=== PATIENT | female | born 1950 | race American Indian/Alaskan Native ===

== ENCOUNTER 2017-01-07 14:07 | Inpatient (IN) | payer MEDICARE, BC, OTHER ==
[2017-01-07] MEDS ORDERED: Sodium Chloride 0.9% 1,000 ML IV ONE (14:39)
[2017-01-07] MEDS ORDERED: Insulin Regular, Human 100 Units/ML 10 ML Vial SUBCUT ONE ×2 (14:39→16:10)
[2017-01-07] MEDS ORDERED: Ondansetron 4 MG/2 ML SDV IVPUSH ONE (14:39)
[2017-01-07] MEDS ORDERED: Sodium Chloride 0.9% 10 ML Syringe FLUSH PRN (14:39)
[2017-01-07] MEDS ORDERED: Sodium Chloride 0.9% 2.5 ML Syringe FLUSH PRN (14:39)
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
[2017-01-07] MEDS ORDERED: Sodium Chloride 0.9% 1,000 ML IV SCH (16:15)
[2017-01-07] MEDS ORDERED: Insulin Glargine,Human Rec. Analog 100 Units/ML 3 ML Pen SUBCUT ONE (17:30)
[2017-01-07] MEDS: Insulin Aspart 100 Units/ML 3 ML Pen SUBCUT SCH ×2 (17:40→21:00)
--- NOTE | 2017-01-07 18:43 | PCM.HP ---
H&P History of Present Illness - General Date of Service: 01/07/17 Admit Problem/Dx: Admission Diagnosis/Problem Admission Diagnosis/Problem Hyperglycemia Source of Information: Patient, Family, Provider - History of Present Illness Initial Comments - Free Text/Narative: She presented to the ER feeling fatigued. She was noted by Dr Proctor to have blood sugar over 500 . She reports that she does not currently have blood sugar monitoring strips. Dr Proctor recommended hospital observation for blood sugar management as she has failed recent outpatient attempts to control her severe hyperglycemia. abdominal Pain Score (Numeric/FACES): 4 - Related Data Allergies/Adverse Reactions: Allergies Allergy/AdvReac Type Severity Reaction Status Date / Time No Known Allergies Allergy Verified 07/25/13 09:48 Home Medications: Home Meds Aspirin 81 mg PO DAILY 01/07/17 [History] Lisinopril [Lisinopril] 5 mg PO DAILY 01/07/17 [History] glipiZIDE [Glipizide ER] 5 mg PO DAILY 01/07/17 [History] Past Medical History Cardiovascular History: Reports: Hypertension. 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: Musculoskeletal History: Reports: Arthritis Neurological History: Denies: CVA Endocrine/Metabolic History: Reports: Diabetes, Type II Hematologic History: Denies: Anticoagulation Therapy Immunologic History: Denies: Immunosuppression - Infectious Disease History Infectious Disease History: Reports: Chicken Pox, Measles - Past Surgical History Other Musculoskeletal Surgeries/Procedures:: weak right knee Social & Family History - Family History Family Medical History: Noncontributory - Tobacco Use Smoking Status *Q: Never Smoker Second Hand Smoke Exposure: Yes - Caffeine Use Caffeine Use: Reports: Coffee - Alcohol Use Alcohol Use Comment: she denies any alcohol use - Recreational Drug Use Recreational Drug Use: No H&P Review of Systems - Review of Systems: Review Of Systems: See Below General: Denies: Fever, Chills HEENT: Denies: Ear Pain, Sore Throat Pulmonary: Denies: Shortness of Breath, Cough, Sputum Cardiovascular: Denies: Chest Pain Gastrointestinal: Reports: Abdominal Pain (this has since resolved and seemed to be present when her blood sugar was elevated.) Genitourinary: Denies: Dysuria, Frequency Skin: Denies: Cyanosis Psychiatric: Denies: Confusion Exam - Exam Exam: See Below - Vital Signs Vital Signs: Last Vital Signs Temp 96.9 F 01/07/17 16:55 Pulse 70 01/07/17 16:55 Resp 18 01/07/17 16:55 BP 140/78 01/07/17 16:55 Pulse Ox 98 01/07/17 16:55 Weight: 67.358 kg - Exam General: Alert, Oriented, Cooperative HEENT: EOMI, Mucosa Moist & [place] Neck: Supple, Trachea Midline Lungs: Clear to Auscultation, Normal Respiratory Effort Cardiovascular: Regular Rate, Regular Rhythm GI/Abdominal Exam: Soft, Non-Tender (Female) Exam: Deferred Rectal (Female) Exam: Deferred Back Exam: No: CVA Tenderness (L), CVA Tenderness (R) Extremities: No Pedal Edema Neurological: Cranial Nerves Intact, Normal Speech Neuro Extensive - Motor, Sensory, Reflexes: CN II-XII Intact Psychiatric: Alert, Normal Affect. No: Agitated - Patient Data Lab Results Last 24 hrs: Laboratory Results - last 24 hr 01/07/17 Range/Units 17:36 POC Glucose 238 H (60-110) mg/dL Result Diagrams: 01/07/17 14:46 01/07/17 14:46 *Q Meaningful Use (ADM) - VTE *Q VTE Criteria *Q: - Stroke *Q Stroke Criteria *Q: - AMI *Q AMI Criteria *Q: - Problem List (1) Chronic renal insufficiency SNOMED Code(s): 630855683 ICD Code: N18.9 - CHRONIC KIDNEY DISEASE, UNSPECIFIED Status: Acute Current Visit: Yes (2) Hyperglycemia without ketosis SNOMED Code(s): 86224292 ICD Code: R73.9 - HYPERGLYCEMIA, UNSPECIFIED Status: Acute Current Visit : Yes (3) Type 2 diabetes mellitus SNOMED Code(s): 00272054 ICD Code: E11.9 - TYPE 2 DIABETES MELLITUS WITHOUT COMPLICATIONS Status: Acute Current Visit: Yes Qualifiers: Diabetes mellitus complication status: with unspecified complications Diabetes mellitus shelter insulin use: without terminal carman use Qualified Code( s): E11.8 - Type 2 diabetes mellitus with unspecified complications (4) Hypertension SNOMED Code(s): 48462850 ICD Code: I10 - ESSENTIAL (PRIMARY) HYPERTENSION Status: Acute Current Visit: Yes Problem List Initiated/Reviewed/Updated: Yes Orders Last 24hrs: Active Orders 24 hr Category Date Time Status Accu Check [Blood Glucose Check, Bedside] [] Care 01/07/17 17:14 Active QIDACANDBED ADA Diabetic [[place] [employer] Diet] [DIET Diet 01/07/17 Dinner Active ] Aspirin Med 01/08/17 09:00 Active 81 mg PO DAILY Insulin Aspart [NovoLOG] Med 01/07/17 17:17 Active See Protocol SUBCUT ACBED Insulin Glarg,Human.Rec.Analog [LantUS Solostar] Med 01/08/17 09:00 Active 10 units SUBCUT BID Lisinopril [Prinivil] Med 01/08/17 09:00 Active 5 mg PO DAILY glipiZIDE [Glucotrol XL] Med 01/08/17 09:00 Active 5 mg PO DAILY Medication Orders Aspirin (Aspirin) 81 mg PO DAILY ROBIN Glipizide (Glucotrol Xl) 5 mg PO DAILY ROBIN Insulin Aspart (Novolog) 0 unit SUBCUT ACBED ROBIN PRN Reason: Protocol Last Admin: 01/07/17 17:40 Dose: 2 unit Insulin Glargine (Lantus Solostar) 10 units SUBCUT BID ROBIN Lisinopril (Prinivil) 5 mg PO DAILY ROBIN Sodium Chloride (Saline Flush) 10 ml FLUSH ASDIRECTED PRN PRN Reason: Keep Vein Open Last Admin: 01/07/17 14:58 Dose: 10 ml Sodium Chloride (Saline Flush) 2.5 ml FLUSH ASDIRECTED PRN PRN Reason: Keep Vein Open Last Admin: 01/07/17 14:58 Dose: 2.5 ml Assessment/Plan Comment:: 01/07/2017 admit to observation check lipids start lantus monitor blood sugars diabetic education when available.
[2017-01-07] MEDS ORDERED: Temazepam 15 MG Cap PO PRN (18:47)
[2017-01-07] MEDS: Heparin Sodium 5,000 Units/ML Vial SUBCUT SCH (19:22)
[2017-01-08] MEDS: Heparin Sodium 5,000 Units/ML Vial SUBCUT SCH ×3 (04:08→18:23)
[2017-01-08] MEDS: Lisinopril 5 MG Tab PO SCH (08:26)
[2017-01-08] MEDS: Aspirin 81 MG Tab.Chew PO SCH (08:29)
[2017-01-08] MEDS: glipiZIDE 5 MG Tab.ER PO SCH (08:30)
[2017-01-08] MEDS: Insulin Glargine,Human Rec. Analog 100 Units/ML 3 ML Pen SUBCUT SCH ×2 (08:31→21:17)
[2017-01-08] MEDS: Insulin Aspart 100 Units/ML 3 ML Pen SUBCUT SCH ×4 (08:32→21:16)
[2017-01-08] MEDS: Acetaminophen 325 MG Tab PO PRN ×2 (08:49→16:15)
--- NOTE | 2017-01-08 12:06 | PCM.PN ---
- General Info Date of Service: 01/08/17 Subjective Update: Patient states her lightheadedness has improved. She however does tell me that she had a headache that responded well to tylenol. She denies any nausea, vomiting, abdominal pain. She has no current complaints. - Review of Systems General: Reports: Other (see HPI) - Patient Data Vitals - Most Recent: Last Vital Signs Temp 36.8 C 01/08/17 08:00 Pulse 69 01/08/17 08:00 Resp 14 01/08/17 08:00 BP 134/76 01/08/17 08:26 Pulse Ox 96 01/08/17 08:00 Weight - Most Recent: 67.358 kg I&O - Last 24 Hours: Intake & Output 01/07/17 01/08/17 01/08/17 22:59 06:59 14:59 Intake Total 1340 Output Total 1350 Balance -10 Lab Results Last 24 Hours: Laboratory Results - last 24 hr 01/07/17 01/07/17 01/07/17 Range/Units 17:36 21:25 22:12 WBC (4.0-11.0) K/uL RBC (4.30-5.90) M/uL Hgb (12.0-16.0) g/dL Hct (36.0-46.0) % MCV (80.0-98.0) fL MCH (27.0-32.0) pg MCHC (31.0-37.0) g/dL RDW Std Deviation (28.0-62.0) fl RDW Coeff of Patrice (11.0-15.0) % Plt Count (150-400) K/uL MPV (7.40-12.00) fL Neut % (Auto) (48.0-80.0) % Lymph % (Auto) (16.0-40.0) % Borden % (Auto) (0.0-15.0) % Eos % (Auto) (0.0-7.0) % Baso % (Auto) (0.0-1.5) % Neut # (Auto) (1.4-5.7) K/uL Lymph # (Auto) (0.6-2.4) K/uL Borden # (Auto) (0.0-0.8) K/uL Eos # (Auto) (0.0-0.7) K/uL Baso # (Auto) (0.0-0.1) K/uL Nucleated RBC % /100WBC Nucleated RBCs # K/uL Sodium (136-146) mmol/L Potassium (3.5-5.1) mmol/L Chloride (98-110) mmol/L Carbon Dioxide (21-31) mmol/L BUN (6.0-23.0) mg/dL Creatinine (0.6-1.5) mg/dL Est Cr Clr Drug Dosing mL/min Estimated GFR (MDRD) ml/min Glucose (60-110) mg/dL POC Glucose 238 H 96 93 (60-110) mg/dL Calcium (8.8-10.8) mg/dL Phosphorus (2.4-4.7) mg/dL Magnesium (1.5-2.3) mEq/L Triglycerides (10-190) mg/dL Cholesterol (131-240) mg/dL LDL Cholesterol, Calc (60-180) mg/dL VLDL Cholesterol (5-55) mg/dL HDL Cholesterol (40-80) mg/dL Cholesterol/HDL Ratio (3.3-6.0) 01/08/17 01/08/17 01/08/17 Range/Units 05:43 05:43 05:43 WBC 8.50 (4.0-11.0) K/uL RBC 4.56 (4.30-5.90) M/uL Hgb 13.1 (12.0-16.0) g/dL Hct 39.0 (36.0-46.0) % MCV 85.5 (80.0-98.0) fL MCH 28.7 (27.0-32.0) pg MCHC 33.6 (31.0-37.0) g/dL RDW Std Deviation 40.7 (28.0-62.0) fl RDW Coeff of Patrice 13 (11.0-15.0) % Plt Count 155 (150-400) K/uL MPV 11.60 (7.40-12.00) fL Neut % (Auto) 66.4 (48.0-80.0) % Lymph % (Auto) 24.5 (16.0-40.0) % Borden % (Auto) 5.5 (0.0-15.0) % Eos % (Auto) 3.1 (0.0-7.0) % Baso % (Auto) 0.5 (0.0-1.5) % Neut # (Auto) 5.7 (1.4-5.7) K/uL Lymph # (Auto) 2.1 (0.6-2.4) K/uL Borden # (Auto) 0.5 (0.0-0.8) K/uL Eos # (Auto) 0.3 (0.0-0.7) K/uL Baso # (Auto) 0.0 (0.0-0.1) K/uL Nucleated RBC % 0.0 /100WBC Nucleated RBCs # 0 K/uL Sodium 141 (136-146) mmol/L Potassium 4.0 (3.5-5.1) mmol/L Chloride 112 H (98-110) mmol/L Carbon Dioxide 21 (21-31) mmol/L BUN 47 H (6.0-23.0) mg/dL Creatinine 2.0 H (0.6-1.5) mg/dL Est Cr Clr Drug Dosing 24.23 mL/min Estimated GFR (MDRD) 24.8 ml/min Glucose 234 H (60-110) mg/dL POC Glucose (60-110) mg/dL Calcium 9.0 (8.8-10.8) mg/dL Phosphorus 2.9 (2.4-4.7) mg/dL Magnesium 1.8 (1.5-2.3) mEq/L Triglycerides 278 H (10-190) mg/dL Cholesterol 152 (131-240) mg/dL LDL Cholesterol, Calc 67 (60-180) mg/dL VLDL Cholesterol 56 H (5-55) mg/dL HDL Cholesterol 29 L (40-80) mg/dL Cholesterol/HDL Ratio 5.2 (3.3-6.0) 01/08/17 01/08/17 Range/Units 06:41 11:29 WBC (4.0-11.0) K/uL RBC (4.30-5.90) M/uL Hgb (12.0-16.0) g/dL Hct (36.0-46.0) % MCV (80.0-98.0) fL MCH (27.0-32.0) pg MCHC (31.0-37.0) g/dL RDW Std Deviation (28.0-62.0) fl RDW Coeff of Patrice (11.0-15.0) % Plt Count (150-400) K/uL MPV (7.40-12.00) fL Neut % (Auto) (48.0-80.0) % Lymph % (Auto) (16.0-40.0) % Borden % (Auto) (0.0-15.0) % Eos % (Auto) (0.0-7.0) % Baso % (Auto) (0.0-1.5) % Neut # (Auto) (1.4-5.7) K/uL Lymph # (Auto) (0.6-2.4) K/uL Borden # (Auto) (0.0-0.8) K/uL Eos # (Auto) (0.0-0.7) K/uL Baso # (Auto) (0.0-0.1) K/uL Nucleated RBC % /100WBC Nucleated RBCs # K/uL Sodium (136-146) mmol/L Potassium (3.5-5.1) mmol/L Chloride (98-110) mmol/L Carbon Dioxide (21-31) mmol/L BUN (6.0-23.0) mg/dL Creatinine (0.6-1.5) mg/dL Est Cr Clr Drug Dosing mL/min Estimated GFR (MDRD) ml/min Glucose (60-110) mg/dL POC Glucose 182 H 200 H (60-110) mg/dL Calcium (8.8-10.8) mg/dL Phosphorus (2.4-4.7) mg/dL Magnesium (1.5-2.3) mEq/L Triglycerides (10-190) mg/dL Cholesterol (131-240) mg/dL LDL Cholesterol, Calc (60-180) mg/dL VLDL Cholesterol (5-55) mg/dL HDL Cholesterol (40-80) mg/dL Cholesterol/HDL Ratio (3.3-6.0) Med Orders - Current: Current Medications Acetaminophen (Tylenol) 650 mg PO Q4H PRN PRN Reason: Pain (Mild 1-3)/fever Last Admin: 01/08/17 08:49 Dose: 325 mg Aspirin (Aspirin) 81 mg PO DAILY [facility] Last Admin: 01/08/17 08:29 Dose: 81 mg Glipizide (Glucotrol Xl) 5 mg PO DAILY [facility] Last Admin: 01/08/17 08:30 Dose: 5 mg Heparin Sodium (Porcine) (Heparin Sodium) 5,000 units SUBCUT Q8H [facility] Last Admin: 01/08/17 10:52 Dose: 5,000 units Insulin Aspart (Novolog) 0 unit SUBCUT ACBED [facility] PRN Reason: Protocol Last Admin: 01/08/17 08:32 Dose: 1 unit Insulin Glargine (Lantus Solostar) 10 units SUBCUT BID [facility] Last Admin: 01/08/17 08:31 Dose: 10 unit Lisinopril (Prinivil) 5 mg PO DAILY [facility] Last Admin: 01/08/17 08:26 Dose: 5 mg Sodium Chloride (Saline Flush) 10 ml FLUSH ASDIRECTED PRN PRN Reason: Keep Vein Open Last Admin: 01/07/17 14:58 Dose: 10 ml Sodium Chloride (Saline Flush) 2.5 ml FLUSH ASDIRECTED PRN PRN Reason: Keep Vein Open Last Admin: 01/07/17 14:58 Dose: 2.5 ml Temazepam (Restoril) 15 mg PO BEDTIME PRN PRN Reason: Insomnia Discontinued Medications Sodium Chloride (Normal Saline) 1,000 mls @ 999 mls/hr IV STAT ONE Stop: 01/07/17 15:39 Last Admin: 01/07/17 14:58 Dose: 999 mls/hr Sodium Chloride (Normal Saline) 1,000 mls @ 125 mls/hr IV ASDIRECTED [facility] Last Admin: 01/07/17 16:19 Dose: 125 mls/hr Insulin Glargine (Lantus Solostar) 10 units SUBCUT ONETIME ONE Stop: 01/07/17 17:31 Last Admin: 01/07/17 17:45 Dose: 10 unit Insulin Human Regular (Novolin R) 10 unit SUBCUT ONETIME ONE PRN Reason: Protocol Stop: 01/07/17 14:40 Last Admin: 01/07/17 14:51 Dose: 10 units Insulin Human Regular (Novolin R) 10 unit SUBCUT ONETIME ONE PRN Reason: Protocol Stop: 01/07/17 16:11 Last Admin: 01/07/17 16:18 Dose: 10 units Ondansetron HCl (Zofran) 4 mg IVPUSH ONETIME ONE Stop: 01/07/17 14:40 Last Admin: 01/07/17 14:58 Dose: 4 mg - Exam General: Alert, Oriented Neck: Supple Lungs: Clear to Auscultation, Normal Respiratory Effort Cardiovascular: Regular Rate, Regular Rhythm GI/Abdominal Exam: Normal Bowel Sounds, Soft Extremities: Normal Inspection, Normal Range of Motion, No Pedal Edema, Normal Capillary Refill - Problem List Review Problem List Initiated/Reviewed/Updated: Yes - Plan Plan:: A: #1. Poorly controlled type 2 diabetes #2. hyperglycemia thats improving control #3. Chronic kidney disease - improving creatinine #4. History of hypertension #5. hypertriglyceridemia P: #1. Diabetic education to see patient tomorrow and advise on possible D/C on home insulin #2. Lipitor 40mg PO daily #3. Anticipate discharge tomorrow
[2017-01-08] MEDS: atorvaSTATin 40 MG Tab PO SCH (12:42)
[2017-01-09] MEDS: Heparin Sodium 5,000 Units/ML Vial SUBCUT SCH ×2 (03:43→12:00)
[2017-01-09] MEDS: Insulin Aspart 100 Units/ML 3 ML Pen SUBCUT SCH ×2 (07:52→12:01)
[2017-01-09] MEDS: atorvaSTATin 40 MG Tab PO SCH (08:21)
[2017-01-09] MEDS: glipiZIDE 5 MG Tab.ER PO SCH (08:21)
[2017-01-09] MEDS: Aspirin 81 MG Tab.Chew PO SCH (08:21)
[2017-01-09] MEDS: Lisinopril 5 MG Tab PO SCH (08:24)
[2017-01-09] MEDS: Insulin Glargine,Human Rec. Analog 100 Units/ML 3 ML Pen SUBCUT SCH (08:33)
--- NOTE | 2017-01-09 11:24 | PCM.DCSUM1 ---
Discharge Summary - Hospital Course Free Text/Narrative:: Admission Date: 01/07/17 Discharge Date: 01/09/17 Admission Diagnosis: #1. Hyperglycemia without ketosis #2. Chronic renal insufficiency #3. Type 2 DM #4. Hypertension #5. lightheadedness Discharge Diagnosis: #1. Hyperglycemia - improved #2. Chronic renal insufficiency, type 2 diabetes, hypertension Hospital course: 66F with the above past medical history presented to the ER on 01/07 complaining of feeling lightheaded and as if her blood sugars were elevated. She is a known type 2 diabetic. She stated tot he ER physician that she had been out of test strips and had not been checking her sugars for the past few weeks. It was noted in the ER that her glucose was >500. She was admitted for hyperglycemia management. Routine labs indicated improvement and response to sliding scale. Home medications were continued for hypertension. The patient met with diabetic education who recommended the patient be started on levemir 13 units qam. She was taught on how to administer herself insulin. We tried to start her on metformin but she says shes had it before and it causes diarrhea so she refused. She was discharged home on insulin as described and glipizide was discontinued. She is to follow up with her PCP next week who can restart the glipizide if she wishes. Also started on 20mg PO lipitor daily given her T2DM. Patient was advised to check her glucose routinely, and compliance was encouraged. Advised to return if she experiences lightheadness, dizziness, nausea, vomiting, confusion. - Discharge Data Discharge Date: 01/09/17 Discharge Disposition: Home, Self-Care 01 Condition: Fair - Patient Summary/Data Consults: Consultations 01/07/17 18:45 Consult to Foam Dispenser [Consult to Diabetic Nurse Specialist] [CONS] Routine - Patient Instructions Diet: Diabetic Diet Activity: As Tolerated Notify Provider of: Fever, Nausea and/or Vomiting - Discharge Plan Prescriptions/Med Rec: atorvaSTATin [Lipitor] 20 mg PO BEDTIME 30 Days #30 tablet Blood Sugar Diagnostic [Test Strips] 1 each QAM #1 box Blood-Glucose Meter, Drum-Type [Accu-Chek] 1 each QAM #1 kit Insulin Detemir [Levemir] 13 unit SUBCUT QAM 30 Days #1 box Lancets [Accu-Chek] 1 each MC BID 30 Days #1 box Lisinopril [Prinivil] 5 mg PO DAILY 30 Days #30 tablet Home Medications: Home Meds Aspirin 81 mg PO DAILY 01/07/17 [History] Furosemide 40 mg PO DAILY 01/07/17 [History] SitaGLIPtin [Januvia] 50 mg PO DAILY 01/07/17 [History] amLODIPine Besylate [Amlodipine Besylate] 5 mg PO BEDTIME 01/07/17 [History] Blood Sugar Diagnostic [Test Strips] 1 each QAM #1 box 01/09/17 [Rx] Blood-Glucose Meter, Drum-Type [Accu-Chek] 1 each QAM #1 kit 01/09/17 [Rx] Insulin Detemir [Levemir] 13 unit SUBCUT QAM 30 Days #1 box 01/09/17 [Rx] Lancets [Accu-Chek] 1 each MC BID 30 Days #1 box 01/09/17 [Rx] Lisinopril [Prinivil] 5 mg PO DAILY 30 Days #30 tablet 01/09/17 [Rx] atorvaSTATin [Lipitor] 20 mg PO BEDTIME 30 Days #30 tablet 01/09/17 [Rx] Patient Handouts: Type 2 Diabetes Mellitus, Adult, Hyperglycemia, [id number] Referrals: Janine Back MD [Physician] - 01/16/17 10:30 am - Discharge Summary/Plan Comment DC Time >30 min.: No Discharge Summary/Plan Comment: Admission Date: 01/07/17 Discharge Date: 01/09/17 Admission Diagnosis: #1. Hyperglycemia without ketosis #2. Chronic renal insufficiency #3. Type 2 DM #4. Hypertension #5. lightheadedness Discharge Diagnosis: #1. Hyperglycemia - improved #2. Chronic renal insufficiency, type 2 diabetes, hypertension Hospital course: 66F with the above past medical history presented to the ER on 01/07 complaining of feeling lightheaded and as if her blood sugars were elevated. She is a known type 2 diabetic. She stated tot he ER physician that she had been out of test strips and had not been checking her sugars for the past few weeks. It was noted in the ER that her glucose was >500. She was admitted for hyperglycemia management. Routine labs indicated improvement and response to sliding scale. Home medications were continued for hypertension. The patient met with diabetic education who recommended the patient be started on levemir 13 units qam. She was taught on how to administer herself insulin. We tried to start her on metformin but she says shes had it before and it causes diarrhea so she refused. She was discharged home on insulin as described and glipizide was discontinued. She is to follow up with her PCP next week who can restart the glipizide if she wishes. Patient was advised to check her glucose routinely, and compliance was encouraged. Advised to return if she experiences lightheadness, dizziness, nausea, vomiting, confusion. - Patient Data Vitals - Most Recent: Last Vital Signs Temp 36.4 C 01/09/17 08:00 Pulse 60 01/09/17 08:00 Resp 18 01/09/17 08:00 BP 111/64 01/09/17 08:24 Pulse Ox 97 01/09/17 08:00 Weight - Most Recent: 67.358 kg I&O - Last 24 hours: Intake & Output 01/08/17 01/09/17 01/09/17 22:59 06:59 14:59 Intake Total 1000 1070 Output Total 800 1150 Balance 200 -80 Lab Results - Last 24 hrs: Laboratory Results - last 24 hr 01/08/17 01/08/17 01/08/17 Range/Units 06:41 11:29 15:54 WBC (4.0-11.0) K/uL RBC (4.30-5.90) M/uL Hgb (12.0-16.0) g/dL Hct (36.0-46.0) % MCV (80.0-98.0) fL MCH (27.0-32.0) pg MCHC (31.0-37.0) g/dL RDW Std Deviation (28.0-62.0) fl RDW Coeff of Patrice (11.0-15.0) % Plt Count (150-400) K/uL MPV (7.40-12.00) fL Neut % (Auto) (48.0-80.0) % Lymph % (Auto) (16.0-40.0) % Gila % (Auto) (0.0-15.0) % Eos % (Auto) (0.0-7.0) % Baso % (Auto) (0.0-1.5) % Neut # (Auto) (1.4-5.7) K/uL Lymph # (Auto) (0.6-2.4) K/uL Gila # (Auto) (0.0-0.8) K/uL Eos # (Auto) (0.0-0.7) K/uL Baso # (Auto) (0.0-0.1) K/uL Nucleated RBC % /100WBC Nucleated RBCs # K/uL Sodium (136-146) mmol/L Potassium (3.5-5.1) mmol/L Chloride (98-110) mmol/L Carbon Dioxide (21-31) mmol/L BUN (6.0-23.0) mg/dL Creatinine (0.6-1.5) mg/dL Est Cr Clr Drug Dosing mL/min Estimated GFR (MDRD) ml/min Glucose (60-110) mg/dL POC Glucose 182 H 200 H 172 H (60-110) mg/dL Calcium (8.8-10.8) mg/dL Magnesium (1.5-2.3) mEq/L 01/08/17 01/09/17 01/09/17 Range/Units 20:42 05:30 05:30 WBC 7.40 (4.0-11.0) K/uL RBC 4.52 (4.30-5.90) M/uL Hgb 13.3 (12.0-16.0) g/dL Hct 38.9 (36.0-46.0) % MCV 86.1 (80.0-98.0) fL MCH 29.4 (27.0-32.0) pg MCHC 34.2 (31.0-37.0) g/dL RDW Std Deviation 41.1 (28.0-62.0) fl RDW Coeff of Patrice 13 (11.0-15.0) % Plt Count 148 L (150-400) K/uL MPV 11.70 (7.40-12.00) fL Neut % (Auto) 53.0 (48.0-80.0) % Lymph % (Auto) 33.8 (16.0-40.0) % Gila % (Auto) 6.8 (0.0-15.0) % Eos % (Auto) 5.7 (0.0-7.0) % Baso % (Auto) 0.7 (0.0-1.5) % Neut # (Auto) 3.9 (1.4-5.7) K/uL Lymph # (Auto) 2.5 H (0.6-2.4) K/uL Gila # (Auto) 0.5 (0.0-0.8) K/uL Eos # (Auto) 0.4 (0.0-0.7) K/uL Baso # (Auto) 0.1 (0.0-0.1) K/uL Nucleated RBC % 0.0 /100WBC Nucleated RBCs # 0 K/uL Sodium 141 (136-146) mmol/L Potassium 3.9 (3.5-5.1) mmol/L Chloride 114 H (98-110) mmol/L Carbon Dioxide 21 (21-31) mmol/L BUN 41 H (6.0-23.0) mg/dL Creatinine 1.8 H (0.6-1.5) mg/dL Est Cr Clr Drug Dosing 26.92 mL/min Estimated GFR (MDRD) 28.0 ml/min Glucose 86 (60-110) mg/dL POC Glucose 206 H (60-110) mg/dL Calcium 9.1 (8.8-10.8) mg/dL Magnesium 1.7 (1.5-2.3) mEq/L 01/09/17 01/09/17 Range/Units 06:11 08:31 WBC (4.0-11.0) K/uL RBC (4.30-5.90) M/uL Hgb (12.0-16.0) g/dL Hct (36.0-46.0) % MCV (80.0-98.0) fL MCH (27.0-32.0) pg MCHC (31.0-37.0) g/dL RDW Std Deviation (28.0-62.0) fl RDW Coeff of Patrice (11.0-15.0) % Plt Count (150-400) K/uL MPV (7.40-12.00) fL Neut % (Auto) (48.0-80.0) % Lymph % (Auto) (16.0-40.0) % Gila % (Auto) (0.0-15.0) % Eos % (Auto) (0.0-7.0) % Baso % (Auto) (0.0-1.5) % Neut # (Auto) (1.4-5.7) K/uL Lymph # (Auto) (0.6-2.4) K/uL Gila # (Auto) (0.0-0.8) K/uL Eos # (Auto) (0.0-0.7) K/uL Baso # (Auto) (0.0-0.1) K/uL Nucleated RBC % /100WBC Nucleated RBCs # K/uL Sodium (136-146) mmol/L Potassium (3.5-5.1) mmol/L Chloride (98-110) mmol/L Carbon Dioxide (21-31) mmol/L BUN (6.0-23.0) mg/dL Creatinine (0.6-1.5) mg/dL Est Cr Clr Drug Dosing mL/min Estimated GFR (MDRD) ml/min Glucose (60-110) mg/dL POC Glucose 81 120 H (60-110) mg/dL Calcium (8.8-10.8) mg/dL Magnesium (1.5-2.3) mEq/L Med Orders - Current: Current Medications Acetaminophen (Tylenol) 650 mg PO Q4H PRN PRN Reason: Pain (Mild 1-3)/fever Last Admin: 01/08/17 16:15 Dose: 325 mg Aspirin (Aspirin) 81 mg PO DAILY [facility] Last Admin: 01/09/17 08:21 Dose: 81 mg Atorvastatin Calcium (Lipitor) 40 mg PO DAILY [facility] Last Admin: 01/09/17 08:21 Dose: 40 mg Glipizide (Glucotrol Xl) 5 mg PO DAILY [facility] Last Admin: 01/09/17 08:21 Dose: 5 mg Heparin Sodium (Porcine) (Heparin Sodium) 5,000 units SUBCUT Q8H [facility] Last Admin: 01/09/17 03:43 Dose: 5,000 units Insulin Aspart (Novolog) 0 unit SUBCUT ACBED [facility] PRN Reason: Protocol Last Admin: 01/09/17 07:52 Dose: Not Given Insulin Glargine (Lantus Solostar) 10 units SUBCUT BID [facility] Last Admin: 01/09/17 08:33 Dose: 10 unit Lisinopril (Prinivil) 5 mg PO DAILY [facility] Last Admin: 01/09/17 08:24 Dose: 5 mg Sodium Chloride (Saline Flush) 10 ml FLUSH ASDIRECTED PRN PRN Reason: Keep Vein Open Last Admin: 01/07/17 14:58 Dose: 10 ml Sodium Chloride (Saline Flush) 2.5 ml FLUSH ASDIRECTED PRN PRN Reason: Keep Vein Open Last Admin: 01/07/17 14:58 Dose: 2.5 ml Temazepam (Restoril) 15 mg PO BEDTIME PRN PRN Reason: Insomnia Discontinued Medications Sodium Chloride (Normal Saline) 1,000 mls @ 999 mls/hr IV STAT ONE Stop: 01/07/17 15:39 Last Admin: 01/07/17 14:58 Dose: 999 mls/hr Sodium Chloride (Normal Saline) 1,000 mls @ 125 mls/hr IV ASDIRECTED [facility] Last Admin: 01/07/17 16:19 Dose: 125 mls/hr Insulin Glargine (Lantus Solostar) 10 units SUBCUT ONETIME ONE Stop: 01/07/17 17:31 Last Admin: 01/07/17 17:45 Dose: 10 unit Insulin Human Regular (Novolin R) 10 unit SUBCUT ONETIME ONE PRN Reason: Protocol Stop: 01/07/17 14:40 Last Admin: 01/07/17 14:51 Dose: 10 units Insulin Human Regular (Novolin R) 10 unit SUBCUT ONETIME ONE PRN Reason: Protocol Stop: 01/07/17 16:11 Last Admin: 01/07/17 16:18 Dose: 10 units Ondansetron HCl (Zofran) 4 mg IVPUSH ONETIME ONE Stop: 01/07/17 14:40 Last Admin: 01/07/17 14:58 Dose: 4 mg *Q Meaningful Use (DIS) - VTE *Q VTE Criteria *Q: - Stroke *Q Stroke Criteria *Q: - AMI *Q AMI Criteria *Q:
--- NOTE | 2017-01-09 12:20 | CT ---
EXAM DATE: 01/07/17 PATIENT'S AGE: 66 Patient: CORY DE LUNA Facility: [place], [place] Site . Site : [id number] Study: CT Head WO CONT [id number] 3:20:23 PM Ordering Physician: Hitesh Garcia Final Report: Dizzy. Technique noncontrast head CT scan. No comparison studies are available. Findings: Axial noncontrast images through the brain parenchyma demonstrates no acute intracranial hemorrhage or mass. There is generalized mild parenchymal volume loss with periventricular hypolucencies likely reflecting chronic small vessel ischemic change. No abnormal extra-axial air fluid collections. No midline shift. The visualized paranasal sinuses, mastoid air cells skull and scalp appear unremarkable aside from mucosal thickening in the ethmoid air cells. Impression: 1. No acute intracranial hemorrhage or mass. 2. Mild generalized parenchymal volume loss with periventricular hypolucencies likely reflecting chronic small vessel ischemic change. 3. Mild ethmoid sinus disease. Please note that all CT scans at this facility use dose modulation, iterative reconstruction, and/or weight-based dosing when appropriate to reduce radiation dose to as low as reasonably achievable. Dictated by Mona Cruz MD @ Jan 07 2017 3:39PM (Electronic Signature) Report Signed by Proxy. [email or web address]
== END 2017-01-09 13:30 | disposition home or self-care (01) | DRG 683 ==
LOC: MW.ED 14:07 → MW.MS 16:10
PROVIDERS: ADMIT Family Medicine; ATTEND Family Medicine
DX: I12.9 Hypertensive chronic kidney disease with stage 1 through stage 4 chronic kidney disease, or unspecified chronic kidney disease (principal); N18.4 Chronic kidney disease, stage 4 (severe); E11.22 Type 2 diabetes mellitus with diabetic chronic kidney disease; E86.0 Dehydration; Z79.899 Other long term (current) drug therapy; E11.65 Type 2 diabetes mellitus with hyperglycemia; R51 Headache; E78.1 Pure hyperglyceridemia; Z79.84 Long term (current) use of oral hypoglycemic drugs
CPT/HCPCS: 36415; 70450; 80053; 81001; 82009; 82150; 82962; 83036; 83690; 85025; 93005; 96361; 96372; 96374; 99285; J2405; J7040; 80048; 80061; 83735; 84100; 99283; A9270-GY; J1644; J1815-GY ×2

== ENCOUNTER 2018-09-25 13:53 | Emergency (ER) | payer MEDICARE, BC, OTHER ==
--- NOTE | 2018-09-25 14:35 | EDM.PDOC ---
ED HPI GENERAL MEDICAL PROBLEM - General Chief Complaint: Lower Extremity Injury/Pain Stated Complaint: LEFT KNEE INJURY Time Seen by Provider: 09/25/18 14:15 Source of Information: Reports: Patient History Limitations: Reports: No Limitations - History of Present Illness INITIAL COMMENTS - FREE TEXT/NARRATIVE: HISTORY AND PHYSICAL: History of present illness: Presents reporting left posterior thigh pain. The patient states that about a week and half ago she felt a cramp in her left mid posterior thigh. Then pain has now deepened and extended up to her buttock and down to her calf. The pain increases with bending at the knee. She also complains of some swelling about her knee and in her ankle and foot. She denies fever, headache, chest pain, shortness of breath. She has a history of CKD IV and diabetes mellitus. Review of systems: As per history of present illness and below otherwise all systems reviewed and negative. Past medical history: As per history of present illness and as reviewed below otherwise noncontributory. Surgical history: As per history of present illness and as reviewed below otherwise noncontributory. Social history: No reported history of drug or alcohol abuse. Family history: As per history of present illness and as reviewed below otherwise noncontributory. Physical exam: HEENT: Atraumatic, normocephalic, pupils reactive, negative for conjunctival pallor or scleral icterus, mucous membranes moist, throat clear, neck supple, nontender, trachea midline. Lungs: Clear to auscultation, breath sounds equal bilaterally, chest nontender. Heart: S1S2, regular, negative for clicks, rubs, or JVD. Abdomen: Soft, nondistended, nontender. Negative for masses or hepatosplenomegaly. Negative for costovertebral tenderness. Pelvis: Stable nontender. Genitourinary: Deferred. Rectal: Deferred. Extremities: Atraumatic, negative for cords or calf pain. Neurovascular unremarkable. Neuro: Awake, alert, oriented. Cranial nerves II through XII unremarkable. Cerebellum unremarkable. Motor and sensory unremarkable throughout. Exam nonfocal. Diagnostics: [] Therapeutics: [] Impression: [] Plan: [] Definitive disposition and diagnosis as appropriate pending reevaluation and review of above. left leg Pain Score (Numeric/FACES): 10 - Related Data Allergies Allergy/AdvReac Type Severity Reaction Status Date / Time glyburide Allergy Diarrhea Verified 09/25/18 14:19 metformin Allergy Diarrhea Verified 09/25/18 14:19 Home Meds: Home Meds Aspirin [Halfprin] 81 mg PO DAILY 02/25/18 [History] Furosemide [Lasix] 40 mg PO DAILY 02/25/18 [History] Insulin Detemir [Levemir Flextouch] 10 units SUBCUT BEDTIME 02/25/18 [History] Insulin Detemir [Levemir Flextouch] 20 units SUBCUT DAILY 02/25/18 [History] SitaGLIPtin [Januvia] 50 mg PO DAILY 02/25/18 [History] amLODIPine Besylate [Amlodipine Besylate] 5 mg PO BEDTIME 02/25/18 [History] glipiZIDE [Glucotrol XL] 5 mg PO DAILY 02/25/18 [History] atorvaSTATin [Lipitor] 20 mg PO BEDTIME 09/25/18 [History] Past Medical History HEENT History: Reports: None Cardiovascular History: Reports: Hypertension Respiratory History: Reports: None Gastrointestinal History: Reports: None Genitourinary History: Reports: Chronic Renal Insuffiency INFORMATICIST History: Reports: Musculoskeletal History: Reports: Arthritis Neurological History: Reports: None Psychiatric History: Reports: None Endocrine/Metabolic History: Reports: Diabetes, Type II Immunologic History: Reports: None Oncologic (Cancer) History: Reports: None Dermatologic History: Reports: None - Infectious Disease History Infectious Disease History: Reports: Chicken Pox, Measles - Past Surgical History Head Surgeries/Procedures: Reports: None GI Surgical History: Reports: Appendectomy Other Musculoskeletal Surgeries/Procedures:: weak right knee Social & Family History - Family History Family Medical History: Noncontributory - Tobacco Use Smoking Status *Q: Never Smoker - Caffeine Use Caffeine Use: Reports: None - Recreational Drug Use Recreational Drug Use: No Review of Systems - Review of Systems Review Of Systems: ROS reveals no pertinent complaints other than HPI. ED EXAM, GENERAL - Physical Exam Exam: See Below Exam Limited By: No Limitations General Appearance: Alert, No Apparent Distress Ears: Normal External Exam Nose: Normal Inspection Throat/Mouth: Normal Inspection Head: Atraumatic, Normocephalic Neck: Normal Inspection Respiratory/Chest: No Respiratory Distress, Lungs Clear, Normal Breath Sounds Cardiovascular: Normal Peripheral Pulses, Regular Rate, Rhythm, Systolic Murmur (Long-standing history of heart murmur) Back Exam: No: Paraspinal Tenderness, Vertebral Tenderness Extremities: Other (Left posterior thigh mild tenderness mild nonpitting swelling about the ankle and dorsal foot bilateral.) Neurological: Alert, Oriented Psychiatric: Normal Affect, Normal Mood Skin Exam: Warm, Dry, Intact, Normal Color, No Rash Lymphatic: No Adenopathy Course - Vital Signs Last Recorded V/S: Last Vital Signs Temp 36.5 C 09/25/18 14:15 Pulse 91 09/25/18 14:15 Resp 16 09/25/18 14:15 BP 131/80 09/25/18 14:15 Pulse Ox 98 09/25/18 14:15 - Orders/Labs/Meds Orders: Active Orders 24 hr Category Date Time Status D-DIMER QUANTITATIVE [COAG] Stat Lab 09/25/18 14:31 Ordered Labs: Laboratory Tests 09/25/18 09/25/18 09/25/18 Range/Units 15:20 15:20 15:20 WBC 8.35 (4.0-11.0) K/uL RBC 4.69 (4.30-5.90) M/uL Hgb 13.5 (12.0-16.0) g/dL Hct 40.1 (36.0-46.0) % MCV 85.5 (80.0-98.0) fL MCH 28.8 (27.0-32.0) pg MCHC 33.7 (31.0-37.0) g/dL RDW Std Deviation 41.8 (28.0-62.0) fl RDW Coeff of Patrice 14 (11.0-15.0) % Plt Count 186 (150-400) K/uL MPV 10.90 (7.40-12.00) fL Neut % (Auto) 70.3 (48.0-80.0) % Lymph % (Auto) 22.0 (16.0-40.0) % Mclean % (Auto) 4.7 (0.0-15.0) % Eos % (Auto) 2.3 (0.0-7.0) % Baso % (Auto) 0.7 (0.0-1.5) % Neut # (Auto) 5.9 H (1.4-5.7) K/uL Lymph # (Auto) 1.8 (0.6-2.4) K/uL Mclean # (Auto) 0.4 (0.0-0.8) K/uL Eos # (Auto) 0.2 (0.0-0.7) K/uL Baso # (Auto) 0.1 (0.0-0.1) K/uL Nucleated RBC % 0.0 /100WBC Nucleated RBCs # 0 K/uL INR 0.96 Sodium 141 (136-145) mmol/L Potassium 4.9 (3.5-5.1) mmol/L Chloride 107 (98-107) mmol/L Carbon Dioxide 23.1 (21.0-32.0) mmol/L BUN 54 H (7.0-18.0) mg/dL Creatinine 3.0 H (0.6-1.0) mg/dL Est Cr Clr Drug Dosing 15.70 mL/min Estimated GFR (MDRD) 15.4 ml/min Glucose 201 H (74-106) mg/dL Calcium 10.0 (8.5-10.1) mg/dL Total Bilirubin 0.4 (0.2-1.0) mg/dL AST 10 L (15-37) IU/L ALT 18 (14-63) IU/L Alkaline Phosphatase 84 (46-116) U/L Total Protein 7.5 (6.4-8.2) g/dL Albumin 3.7 (3.4-5.0) g/dL Globulin 3.8 (2.6-4.0) g/dL Albumin/Globulin Ratio 1.0 (0.9-1.6) Departure - Departure Time of Disposition: 16:12 Disposition: Home, Self-Care 01 Condition: Good Clinical Impression: Bakers cyst Qualifiers: Laterality: left Qualified Code(s): M71.22 - Synovial cyst of popliteal space [ Greenwood], left knee - Discharge Information *PRESCRIPTION DRUG MONITORING PROGRAM REVIEWED*: Not Applicable *COPY OF PRESCRIPTION DRUG MONITORING REPORT IN PATIENT MANISHA: Not Applicable Referrals: Janine Back MD [Primary Care Provider] - Forms: ED Department Discharge Additional Instructions: The following information is given to patients seen in the emergency department who are being discharged to home. This information is to outline your options for follow-up care. We provide all patients seen in our emergency department with a follow-up referral. The need for follow-up, as well as the timing and circumstances, are variable depending upon the specifics of your emergency department visit. If you don't have a primary care physician on staff, we will provide you with a referral. We always advise you to contact your personal physician following an emergency department visit to inform them of the circumstance of the visit and for follow-up with them and/or the need for any referrals to a consulting specialist. The emergency department will also refer you to a specialist when appropriate. This referral assures that you have the opportunity for follow-up care with a specialist. All of these measure are taken in an effort to provide you with optimal care, which includes your follow-up. Under all circumstances we always encourage you to contact your private physician who remains a resource for coordinating your care. When calling for follow-up care, please make the office aware that this follow-up is from your recent emergency room visit. If for any reason you are refused follow-up, please contact the [facility] Emergency Department at and asked to speak to the emergency department charge nurse. 1. Follow-up with Dr. Back at [facility] for further evaluation and possible injection. 2. Tylenol 1 g every 8 hours as needed for pain - My Orders Last 24 Hours: My Active Orders 09/25/18 14:31 D-DIMER QUANTITATIVE [COAG] Stat - Assessment/Plan Last 24 Hours: My Active Orders 09/25/18 14:31 D-DIMER QUANTITATIVE [COAG] Stat
--- NOTE | 2018-09-25 15:21 | US ---
ULTRASOUND EXAMINATION OF the left lower extremity WITH DOPPLER HISTORY: Pain FINDINGS: Examination of the left leg was performed from the groin to the calf region. All visualized segments including common femoral, proximal greater saphenous, superficial femoral, popliteal and calf veins appear patent with good compressibility and augmentation. There is no evidence of deep vein thrombosis. There is a 6.3 x 8 x 2.5 cm Greenwood's cyst. IMPRESSION: No evidence of a DVT.
[2018-09-25 16:00] LABS: CARBON DIOXIDE,CO2 23.1 mmol/L (21.0-32.0); POTASSIUM,K 4.9 mmol/L (3.5-5.1)
== END 2018-09-25 16:40 | disposition home or self-care (01) ==
LOC: MW.ED 13:53
DX: M71.22 Synovial cyst of popliteal space [Baker], left knee (principal); I12.9 Hypertensive chronic kidney disease with stage 1 through stage 4 chronic kidney disease, or unspecified chronic kidney disease; N18.9 Chronic kidney disease, unspecified; E11.22 Type 2 diabetes mellitus with diabetic chronic kidney disease; M19.90 Unspecified osteoarthritis, unspecified site; Z79.899 Other long term (current) drug therapy; Z90.49 Acquired absence of other specified parts of digestive tract; Z79.82 Long term (current) use of aspirin; Z79.4 Long term (current) use of insulin; Z88.8 Allergy status to other drugs, medicaments and biological substances
CPT/HCPCS: 36415; 80053; 85025; 85379; 85610; 93971-26-LT; 93971-LT; 99283; 99284-25

== ENCOUNTER 2019-11-13 06:33 | Day surgery (SDC) | payer MEDICARE, OTHER ==
[~2019-11-13 06:33] MED LIST: Lactated Ringers 1,000 ML IV SCH
[2019-11-13] MEDS ORDERED: fentaNYL 100 MCG/2 ML SDV ONE (07:17)
[2019-11-13] MEDS ORDERED: Propofol 200 MG/20 ML SDV ONE (07:17)
--- NOTE | 2019-11-13 07:18 | PCM.PREANE ---
Preanesthetic Assessment - Anesthesia/Transfusion/Family Hx Anesthesia History: Prior Anesthesia Without Reaction Family History of Anesthesia Reaction: No Transfusion History: Prior Transfusion Without Reaction Intubation History: Unknown - Review of Systems General: No Symptoms Pulmonary: No Symptoms Cardiovascular: No Symptoms Gastrointestinal: No Symptoms, Other (family h/o colon cancer (mother)) Neurological: No Symptoms Other: Reports: None - Physical Assessment Height: 5 ft 5 in Weight: 69.4 kg ASA Class: 3 Mental Status: Alert & Oriented x3 Airway Class: Mallampati = 2 Dentition: Reports: Partial (upper removable) Thyro-Mental Finger Breadths: 3 Mouth Opening Finger Breadths: 3 ROM/Head Extension: Limited/Partial Lungs: Clear to Auscultation, Normal Respiratory Effort Cardiovascular: Regular Rate, Regular Rhythm - Allergies Allergies/Adverse Reactions: Allergies Allergy/AdvReac Type Severity Reaction Status Date / Time glyburide Allergy Diarrhea Verified 11/07/19 11:41 latex Allergy Rash Verified 11/07/19 11:41 metformin Allergy Diarrhea Verified 11/07/19 11:41 - Blood Blood Available: No - Anesthesia Plan Pre-Op Medication Ordered: None - Acknowledgements Anesthesia Type Planned: MAC Pt an Appropriate Candidate for the Planned Anesthesia: Yes Alternatives and Risks of Anesthesia Discussed w Pt/Guardian: Yes Pt/Guardian Understands and Agrees with Anesthesia Plan: Yes PreAnesthesia Questionnaire HEENT History: Reports: Other (See Below) Other HEENT History: wears glasses, has removable dental bridge in front Cardiovascular History: Reports: Heart Murmur, Hypertension Other Cardiovascular History: has had heart murmur since her late 20's, recently checked before the AV shunt and was told she was "fine" Respiratory History: Reports: Other (See Below) (h/o tuberculosis) Gastrointestinal History: Reports: Other (See Below) Other Gastrointestinal History: occasional heartburn- takes Tums Genitourinary History: Reports: Renal Disease Other Genitourinary History: CKD Stage 5- left wrist AV fistula procedure 1 month ago- has not started dialysis 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: Reports: Musculoskeletal History: Reports: Arthritis, Other (See Below) (Bilat carpal tunnel syndrome) Neurological History: Reports: Concussion Psychiatric History: Reports: None Endocrine/Metabolic History: Reports: Diabetes, Type II, IDDM Hematologic History: Reports: Blood Transfusion(s) Immunologic History: Reports: None Oncologic (Cancer) History: Reports: None Dermatologic History: Reports: None - Infectious Disease History Infectious Disease History: Reports: Chicken Pox, Measles - Past Surgical History Head Surgeries/Procedures: Reports: None HEENT Surgical History: Reports: Tonsillectomy Cardiovascular Surgical History: Reports: Vascular Surgery Other Cardiovascular Surgeries/Procedures: Has AV fistula in left wrist GI Surgical History: Reports: Appendectomy Musculoskeletal Surgical History: Reports: Arthroscopic Knee - SUBSTANCE USE Smoking Status *Q: Never Smoker Recreational Drug Use History: No - HOME MEDS Home Medications: Home Meds Aspirin [Halfprin] 81 mg PO DAILY 02/25/18 [History] Furosemide [Lasix] 40 mg PO DAILY 02/25/18 [History] Insulin Detemir [Levemir Flextouch] 15 units SUBCUT BEDTIME 02/25/18 [History] Insulin Detemir [Levemir Flextouch] 25 units SUBCUT QAM 02/25/18 [History] SitaGLIPtin [Januvia] 50 mg PO DAILY 02/25/18 [History] amLODIPine Besylate [Amlodipine Besylate] 5 mg PO BEDTIME 02/25/18 [History] glipiZIDE [Glucotrol XL] 5 mg PO BID 02/25/18 [History] Diclofenac Sodium [Voltaren] 1 dose TOP ASDIRECTED PRN 09/20/19 [History] Sodium Bicarbonate 650 mg PO TID 09/20/19 [History] - CURRENT (IN HOUSE) MEDS Current Meds: Current Medications Lactated Ringer's (Ringers, Lactated) 1,000 mls @ 125 mls/hr IV ASDIRECTED [facility]
--- NOTE | 2019-11-13 08:26 | PCM.OPNOTE ---
- General Post-Op/Procedure Note Date of Surgery/Procedure: 11/13/19 Operative Procedure(s): colonoscopy w bx Findings: see [id number] Pre Op Diagnosis: mother has colon ca Post-Op Diagnosis: colon polyp Anesthesia Technique: Moderate Sedation Primary Surgeon: Westley Van Pathology: 3mm polyp at 55cm when scope pulling out Complications: None Condition: Good
--- NOTE | 2019-11-13 08:40 | PCM.POSTAN ---
POST ANESTHESIA ASSESSMENT - MENTAL STATUS Mental Status: Alert, Oriented - VITAL SIGNS Vital Signs: Last Vital Signs Temp 36.3 C 11/13/19 07:10 Pulse 69 11/13/19 08:35 Resp 13 11/13/19 08:35 BP 105/53 L 11/13/19 08:35 Pulse Ox 98 11/13/19 08:35 - RESPIRATORY Respiratory Status: Respiratory Rate WNL, Airway Patent, O2 Saturation Stable - CARDIOVASCULAR CV Status: Pulse Rate WNL, Blood Pressure Stable - GASTROINTESTINAL GI Status: No Symptoms - PAIN Pain Score: 0 - POST OP HYDRATION Hydration Status: Adequate & Stable - OBSERVATIONS Free Text/Narrative:: No anesthesia problems
--- NOTE | 2019-11-13 09:21 | PCM48HPAN ---
Post Anesthesia Note - EVALUATION WITHIN 48HRS OF ANESTHETIC Vital Signs in Normal Range: Yes Patient Participated in Evaluation: Yes Respiratory Function Stable: Yes Airway Patent: Yes Cardiovascular Function Stable: Yes Hydration Status Stable: Yes Pain Control Satisfactory: Yes Nausea and Vomiting Control Satisfactory: Yes Mental Status Recovered: Yes Vital Signs: Last Vital Signs Temp 36.3 C 11/13/19 07:10 Pulse 67 11/13/19 08:40 Resp 13 11/13/19 08:40 BP 135/72 11/13/19 08:40 Pulse Ox 95 11/13/19 08:40 - COMMENTS/OBSERVATIONS Free Text/Narrative:: No anesthesia problems
--- NOTE | 2019-11-13 10:14 | OR ---
SURGEON: Westley Van MD DATE OF PROCEDURE: 11/13/2019 PREOPERATIVE DIAGNOSIS: Positive family history for colon cancer. POSTOPERATIVE DIAGNOSIS: Colon polyp. PROCEDURE PERFORMED: Colonoscopy with biopsy. PRIMARY SURGEON: Westley Van MD. COMPLICATIONS: None. DESCRIPTION OF PROCEDURE: The patient was taken to the endoscopy room. A time out was called, patient identified, and procedure identified. Diprivan was then administrated. Patient went from awake to sleep, hearing doctor talking or door closing is normal. Perineum inspection and digital examination were then performed. A well- lubricated colonoscope was gently inserted through the rectum, advanced past the rectosigmoid junction, the descending colon, splenic flexure, transverse colon, hepatic flexure, ascending colon, arrived to the cecum. Cecum was identified as dictated in the finding. Then the scope was carefully withdrawn while attention was paid to the mucosal surface for any abnormality. Air will be sucked out during the scope withdrawal. At the rectum, retroflexed to examine any rectal diseases, fistula or hemorrhoids. During mucosal examination, abnormality or polyp was noted; picture taken and biopsy performed. Patient tolerated procedure well. There were no intraoperative complications, and Dr. Van was present throughout the whole procedure. FINDINGS: 1. The patient is easily sedated with FOOD PORTER and Diprivan, the patient is soundly snoring. 2. Bowel prep is excellent, very little liquid stool. There is no semi-formed stool. 3. Colon is rather straightforward. Cecum indicated by ileocecal fold, one-to- one indentation, appendiceal orifice. Light emittance is not observed and ScopeGuide is pointing south. Mucosa examined upon scope pulling out. The patient does not have diverticulosis. There is a small tiny polyp 3 mm sessile at distance 55 when the scope pulling out, removed with biopsy forceps. There is no other growth, inflammation, stricture, AV malformation, bleeding, ulcer, none of those. The patient has mild internal hemorrhoids. The patient will benefit from repeat colonoscopy on a case by case situation, as she is 69 right now or if the polyp pathology indicated otherwise. As always, thank you for the kind referral. SONAL / CHARLY /[id number]
== END 2019-11-13 09:25 | disposition home or self-care (01) ==
LOC: MW.SDS 06:33
PROVIDERS: ATTEND Surgery
DX: Z12.11 Encounter for screening for malignant neoplasm of colon (principal); K63.5 Polyp of colon; K64.8 Other hemorrhoids; N18.5 Chronic kidney disease, stage 5; I12.0 Hypertensive chronic kidney disease with stage 5 chronic kidney disease or end stage renal disease; E11.22 Type 2 diabetes mellitus with diabetic chronic kidney disease; Z88.8 Allergy status to other drugs, medicaments and biological substances; Z79.899 Other long term (current) drug therapy; Z90.49 Acquired absence of other specified parts of digestive tract; Z77.22 Contact with and (suspected) exposure to environmental tobacco smoke (acute) (chronic); Z80.0 Family history of malignant neoplasm of digestive organs; Z79.82 Long term (current) use of aspirin; Z91.040 Latex allergy status
CPT/HCPCS: 00812; 82962; 88305; J2001; J2704; J3010; J7120

== ENCOUNTER 2019-12-19 15:48 | Emergency (ER) | payer MEDICARE, OTHER ==
[2019-12-19] MEDS ORDERED: Sodium Chloride 0.9% 10 ML Syringe FLUSH PRN (18:05)
[2019-12-19] MEDS ORDERED: Sodium Chloride 0.9% 2.5 ML Syringe FLUSH PRN (18:05)
[2019-12-19] MEDS ORDERED: Alum Hydrox/Mag Hydrox/Simeth 15 ML, Lidocaine 2% 5 ML PO ONE ×2 (18:06)
--- NOTE | 2019-12-19 18:54 | PCM.SN.2 ---
- Free Text/Narrative Note: 12-Lead ECG Interpretation Acquired: 6:17 PM Rhythm: Sinus rhythm Rate: 76 bpm Hurley: Left axis deviation Intervals: Normal Ectopy: None RV Strain: No obvious RV strain pattern. ST Segments/T-Waves: T wave inversions in aVL, not seen elsewhere Acute Ischemic Changes: None apparent Interpretation: No STEMI
--- NOTE | 2019-12-19 19:01 | CR ---
INDICATION: Epigastric and abdominal pain COMPARISON: None TECHNIQUE: Single view AP upright portable chest radiograph FINDINGS: TUBES AND LINES: None. HEART AND MEDIASTINUM: Heart size normal. Tortuous and probably dilated thoracic aorta.. LUNGS AND PLEURAL SPACES: The lungs appear normal.There pleural spaces are unremarkable. OSSEOUS STRUCTURES: Age-appropriate appearance. No acute focal finding. IMPRESSION: Clear lungs. Heart size normal. Tortuous and probably dilated thoracic aorta. Dictated by Vineet Trejo MD @ Dec 19 2019 6:59PM Signed by Dr. Vineet Trejo @ Dec 19 2019 7:00PM
[2019-12-19 19:05] LABS: BLOOD UREA NITROGEN,BUN 74 mg/dL (7.0-18.0); CARBON DIOXIDE,CO2 21.4 mmol/L (21.0-32.0); CHLORIDE,CL 103 mmol/L (98-107); GLUCOSE RANDOM 92 mg/dL (74-106); LIPASE 193 U/L (73-393); POTASSIUM,K 4.5 mmol/L (3.5-5.1); SODIUM,NA 137 mmol/L (136-145)
--- NOTE | 2019-12-19 20:07 | CT ---
INDICATION: Upper abdominal pain TECHNIQUE: CT abdomen and pelvis without contrast. COMPARISON: None available FINDINGS: Lower chest: Eventration of the left hemidiaphragm. Minor subsegmental atelectasis. A 5 mm left lower lobe nodule on image 12. 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 Liver: A 1.8 x 1.3 cm near water attenuation anterior right hepatic low-density lesion and a 9 mm near water attenuation lesion more inferiorly, suggestive of cysts. Spleen: Unremarkable. Pancreas: Unremarkable. Gallbladder and bile ducts: Cholelithiasis. Adrenal glands: Unremarkable. Kidneys: Unremarkable. No kidney or ureteral stones and no hydronephrosis. GI tract: Proximal duodenal diverticula. No bowel obstruction. The appendix is not seen. No significant pericolonic changes. At least 1 transverse colon diverticulum seen. Stool throughout the colon. Vascular structures: Mild atherosclerotic changes. Lymph nodes: Unremarkable. Miscellaneous: No significant free fluid or free air. Areas of soft tissue induration in the anterior abdominal subcutaneous fat, nonspecific, probably chronic scarring. Pelvic Organs: A small high attenuation focus at the posterior aspect of the uterus on the left is probably related to a parametrial vessel. No bladder calcifications. Bones: Mild lumbar scoliosis with degenerative changes. IMPRESSION: No evidence of an acute process in the abdomen or pelvis. No obstructive uropathy or discrete urolithiasis. Stool throughout the colon. Correlate for constipation. Cholelithiasis. A 5 mm pulmonary nodule. If there are risk factors, follow-up can be considered, per the Fleischner Society recommendations. Please note that all CT scans at this facility use dose modulation, iterative reconstruction, and/or weight-based dosing when appropriate to reduce radiation dose to as low as reasonably achievable. Dictated by Melvin Bruno MD @ Dec 19 2019 7:49PM Signed by Dr. Melvin Bruno @ Dec 19 2019 8:05PM
--- NOTE | 2019-12-19 20:11 | EDM.PDOC ---
ED HPI GENERAL MEDICAL PROBLEM - General Chief Complaint: Abdominal Pain Stated Complaint: stomache pain/new meds Time Seen by Provider: 12/19/19 15:52 Source of Information: Reports: Patient History Limitations: Reports: No Limitations - History of Present Illness INITIAL COMMENTS - FREE TEXT/NARRATIVE: HISTORY AND PHYSICAL: History of present illness: Patient is a 69-year-old female, with a history of type 2 diabetes on insulin, stage IV renal disease, and hypertension, who presents to the ED today with concern of upper abdominal pain over the last 5 days. Patient states she was just recently started on a medication,Cinacalcet that she for started taking 5 days ago when she began noticing that she was having upper abdominal pain. Patient states that she stopped the medication 2 days ago but continues to have the upper abdominal pain. Patient describes it as a dull sensation and states that it comes and goes. Patient states that she has not taken anything for her symptoms. Patient denies any associative symptoms along with the upper abdominal pain. Patient states that she has been following with her primary care provider in regards to her kidney function and states that she just recently had a fistula placed in her left arm in case her renal function worsens and requires dialysis. Patient states that she is still making urine. Patient states she also has a history of kidney stones in the past but denies any other health history. Patient states that her last creatinine was 4.5 with her GFR around 10-11. Patient denies fever, chills, chest pain, shortness of breath, or cough. Denies headache, neck stiff ness, change in vision, syncope, or near syncope. Denies nausea, vomiting, diarrhea, constipation, or dysuria. Has not noted any blood in urine or stool. Patient has been eating and drinking appropriately. Review of systems: As per history of present illness and below otherwise all systems reviewed and negative. Past medical history: As per history of present illness and as reviewed below otherwise noncontributory. Surgical history: As per history of present illness and as reviewed below otherwise noncontributory. Social history: See social history for further information Family history: As per history of present illness and as reviewed below otherwise noncontributory. Physical exam: General: Patient is alert, oriented, and in no acute distress. Patient sitting comfortably on exam table. HEENT: Atraumatic, normocephalic, pupils equal and reactive bilaterally, negative for conjunctival pallor or scleral icterus, mucous membranes moist, TMs normal bilaterally, throat clear, neck supple, nontender, trachea midline. No drooling or trismus noted. No meningeal signs. No hot potato voice noted. Lungs: Clear to auscultation, breath sounds equal bilaterally, chest nontender. Heart: S1S2, regular rate and rhythm without overt murmur Abdomen: Soft, nondistended, nontender. Negative for masses or hepatosplenomegaly. Negative for costovertebral tenderness. Pelvis: Stable nontender. Genitourinary: Deferred. Rectal: Deferred. Skin: Intact, warm, dry. No lesions or rashes noted. Extremities: Atraumatic, negative for cords or calf pain. Neurovascular unremarkable. Neuro: Awake, alert, oriented. Cranial nerves II through XII unremarkable. Cerebellum unremarkable. Motor and sensory unremarkable throughout. Exam nonfoc al. Notes: Patient's baseline creatinine is around 4.5 with a GFR of approximately 10-11. This is stable with lab findings today. See EKG documentation dictated by Dr. Oconnor. Shows nonspecific t wave inversion EKG changes from prior on file along with epigastric pain, I am concerned for atypical presentation of ACS. Admission for observation was offered to patient but she declines at this time r equesting discharge from the ED and signed out AGAINST MEDICAL ADVICE. All risks vs benefits discussed with patient and expresses understanding. Discussed the importance for follow up with a primary care provider. Signs and symptoms that would prompt return to the ED thoroughly discussed with patient. Although patient requesting leave AMA, I will prescribe mediations for possible pneumonia on chest CT and dosed renally. Patient left the ED prior to discharge instructions and left without hand written RX stating she will get these from her PCP in [place]. The pharmacy that patient has on file does not accept electronic prescriptions, so will call in the antibiotics tomorrow morning when the pharmacy opens. Diagnostics: EKG, CBC, CMP, UA, chest x-ray, troponin, abdominal pelvic without contrast, lipase, CT chest w/o cont Therapeutics: GI cocktail Prescription: Azithromycin, Augmentin (dosed for renal dysfunction) Impression: Left AGAINST MEDICAL ADVICE Epigastric pain, r/o atypical ACS Focal lung consolidation, r/o pneumonia vs COVID19 Lung nodule, LLL Chronic kidney disease, stage 4, stable Plan: Patient left the ED prior to discharge instructions and left without hand writ ten RX stating she will get these from her PCP in [place]. The pharmacy that patient has on file does not accept electronic prescriptions, so will call in the antibiotics tomorrow morning when the pharmacy opens. Definitive disposition and diagnosis as appropriate pending reevaluation and review of above. abdominal Pain Score (Numeric/FACES): 5 - Related Data Allergies Allergy/AdvReac Type Severity Reaction Status Date / Time glyburide Allergy Diarrhea Verified 12/19/19 16:28 latex Allergy Rash Verified 12/19/19 16:28 metformin Allergy Diarrhea Verified 12/19/19 16:28 Home Meds: Home Meds Aspirin [Halfprin] 81 mg PO DAILY 02/25/18 [History] Furosemide [Lasix] 40 mg PO DAILY 02/25/18 [History] Insulin Detemir [Levemir Flextouch] 15 units SUBCUT BEDTIME 02/25/18 [History] Insulin Detemir [Levemir Flextouch] 25 units SUBCUT QAM 02/25/18 [History] SitaGLIPtin [Januvia] 50 mg PO DAILY 02/25/18 [History] amLODIPine Besylate [Amlodipine Besylate] 5 mg PO BEDTIME 02/25/18 [History] glipiZIDE [Glucotrol XL] 5 mg PO BID 02/25/18 [History] Diclofenac Sodium [Voltaren] 1 dose TOP ASDIRECTED PRN 09/20/19 [History] Sodium Bicarbonate 650 mg PO TID 09/20/19 [History] Past Medical History HEENT History: Reports: Other (See Below) Other HEENT History: wears glasses, has removable dental bridge in front Cardiovascular History: Reports: Heart Murmur, Hypertension Other Cardiovascular History: has had heart murmur since her late 20's, recently checked before the AV shunt and was told she was "fine" Respiratory History: Reports: Other (See Below) Gastrointestinal History: Reports: Other (See Below) Other Gastrointestinal History: occasional heartburn- takes Tums Genitourinary History: Reports: Renal Disease Other Genitourinary History: CKD Stage 5- left wrist AV fistula [employer] History: Reports: Musculoskeletal History: Reports: Arthritis, Other (See Below) Neurological History: Reports: Concussion Psychiatric History: Reports: None Endocrine/Metabolic History: Reports: Diabetes, Type II, IDDM Hematologic History: Reports: Blood Transfusion(s) Immunologic History: Reports: None Oncologic (Cancer) History: Reports: None Dermatologic History: Reports: None - Infectious Disease History Infectious Disease History: Reports: Chicken Pox - Past Surgical History Head Surgeries/Procedures: Reports: None HEENT Surgical History: Reports: Tonsillectomy Cardiovascular Surgical History: Reports: Vascular Surgery Other Cardiovascular Surgeries/Procedures: Has AV fistula in left wrist GI Surgical History: Reports: Appendectomy Female Surgical History: Reports: Other (See Below) Other Female Surgeries/Procedures: Laparoscopic removal of Uterine fibroid Musculoskeletal Surgical History: Reports: Arthroscopic Knee Other Musculoskeletal Surgeries/Procedures:: Arthroscopy for torn ligament and removal of Bakers cyst right knee Social & Family History - Family History Family Medical History: Noncontributory - Tobacco Use Tobacco Use Status *Q: Never Tobacco User - Caffeine Use Caffeine Use: Reports: None - Recreational Drug Use Recreational Drug Use: No ED ROS GENERAL - Review of Systems Review Of Systems: Comprehensive ROS is negative, except as noted in HPI. ED EXAM, GENERAL - Physical Exam Exam: See Below (see dictation) Course - Vital Signs Last Recorded V/S: Last Vital Signs Temp 98.1 F 12/19/19 19:53 Pulse 85 12/19/19 19:53 Resp 20 12/19/19 19:53 BP 122/89 12/19/19 19:53 Pulse Ox 98 12/19/19 19:53 - Orders/Labs/Meds Orders: Active Orders 24 hr Category Date Time Status EKG Documentation Completion [RC] STAT Care 12/19/19 18:05 Active CORONAVIRUS COVID-19 PCR PHL Stat Lab 12/19/19 21:21 Ordered Sodium Chloride 0.9% [Saline Flush] Med 12/19/19 18:05 Active 10 ml FLUSH ASDIRECTED PRN Sodium Chloride 0.9% [Saline Flush] Med 12/19/19 18:05 Active 2.5 ml FLUSH ASDIRECTED PRN Saline Lock Insert [OM.PC] Stat Oth 12/19/19 18:05 Ordered Medication Orders Sodium Chloride (Saline Flush) 10 ml FLUSH ASDIRECTED PRN PRN Reason: Keep Vein Open Sodium Chloride (Saline Flush) 2.5 ml FLUSH ASDIRECTED PRN PRN Reason: Keep Vein Open Labs: Laboratory Tests 1012/19/19 12/19/19 Range/Units 18:08 18:24 18:24 WBC 6.05 (4.0-11.0) K/uL RBC 4.68 (4.30-5.90) M/uL Hgb 13.3 (12.0-16.0) g/dL Hct 40.8 (36.0-46.0) % MCV 87.2 (80.0-98.0) fL MCH 28.4 (27.0-32.0) pg MCHC 32.6 (31.0-37.0) g/dL RDW Std Deviation 45.7 (28.0-62.0) fl RDW Coeff of Patrice 14 (11.0-15.0) % Plt Count 152 (150-400) K/uL MPV 11.10 (7.40-12.00) fL Neut % (Auto) 61.6 (48.0-80.0) % Lymph % (Auto) 20.7 (16.0-40.0) % [place] % (Auto) 17.0 H (0.0-15.0) % Eos % (Auto) 0.0 (0.0-7.0) % Baso % (Auto) 0.7 (0.0-1.5) % Neut # (Auto) 3.7 (1.4-5.7) K/uL Lymph # (Auto) 1.3 (0.6-2.4) K/uL [place] # (Auto) 1.0 H (0.0-0.8) K/uL Eos # (Auto) 0.0 (0.0-0.7) K/uL Baso # (Auto) 0.0 (0.0-0.1) K/uL Nucleated RBC % 0.0 /100WBC Nucleated RBCs # 0 K/uL Sodium 137 (136-145) mmol/L Potassium 4.5 (3.5-5.1) mmol/L Chloride 103 (98-107) mmol/L Carbon Dioxide 21.4 (21.0-32.0) mmol/L BUN 74 H (7.0-18.0) mg/dL Creatinine 4.5 H (0.6-1.0) mg/dL Est Cr Clr Drug Dosing 10.32 mL/min Estimated GFR (MDRD) 9.6 ml/min Glucose 92 (74-106) mg/dL Calcium 9.1 (8.5-10.1) mg/dL Total Bilirubin 0.3 (0.2-1.0) mg/dL AST 21 (15-37) IU/L ALT 27 (14-63) IU/L Alkaline Phosphatase 83 (46-116) U/L Troponin I < 0.050 (0.000-0.056) ng/mL Total Protein 7.4 (6.4-8.2) g/dL Albumin 3.6 (3.4-5.0) g/dL Globulin 3.8 (2.6-4.0) g/dL Albumin/Globulin Ratio 0.9 (0.9-1.6) Lipase 193 (73-393) U/L Urine Color YELLOW Urine Appearance CLEAR Urine pH 6.0 (5.0-8.0) Ur Specific [place] 1.020 (1.001-1.035) Urine Protein 100 H (NEGATIVE) mg/dL Urine Glucose (UA) 100 H (NEGATIVE) mg/dL Urine Ketones NEGATIVE (NEGATIVE) mg/dL Urine Occult Blood MODERATE H (NEGATIVE) Urine Nitrite NEGATIVE (NEGATIVE) Urine Bilirubin NEGATIVE (NEGATIVE) Urine Urobilinogen 0.2 (<2.0) EU/dL Ur Leukocyte Esterase NEGATIVE (NEGATIVE) Urine RBC 3-4 (0-2/HPF) Urine WBC 0-2 (0-5/HPF) Ur Epithelial Cells OCCASIONAL (NONE-FEW) Amorphous Sediment RARE (NEGATIVE) Urine Bacteria FEW (NEGATIVE) Urine Mucus RARE (NONE-MOD) 12/19/19 Range/Units 20:30 WBC (4.0-11.0) K/uL RBC (4.30-5.90) M/uL Hgb (12.0-16.0) g/dL Hct (36.0-46.0) % MCV (80.0-98.0) fL MCH (27.0-32.0) pg MCHC (31.0-37.0) g/dL RDW Std Deviation (28.0-62.0) fl RDW Coeff of Patrice (11.0-15.0) % Plt Count (150-400) K/uL MPV (7.40-12.00) fL Neut % (Auto) (48.0-80.0) % Lymph % (Auto) (16.0-40.0) % [place] % (Auto) (0.0-15.0) % Eos % (Auto) (0.0-7.0) % Baso % (Auto) (0.0-1.5) % Neut # (Auto) (1.4-5.7) K/uL Lymph # (Auto) (0.6-2.4) K/uL [place] # (Auto) (0.0-0.8) K/uL Eos # (Auto) (0.0-0.7) K/uL Baso # (Auto) (0.0-0.1) K/uL Nucleated RBC % /100WBC Nucleated RBCs # K/uL Sodium (136-145) mmol/L Potassium (3.5-5.1) mmol/L Chloride (98-107) mmol/L Carbon Dioxide (21.0-32.0) mmol/L BUN (7.0-18.0) mg/dL Creatinine (0.6-1.0) mg/dL Est Cr Clr Drug Dosing mL/min Estimated GFR (MDRD) ml/min Glucose (74-106) mg/dL Calcium (8.5-10.1) mg/dL Total Bilirubin (0.2-1.0) mg/dL AST (15-37) IU/L ALT (14-63) IU/L Alkaline Phosphatase (46-116) U/L Troponin I < 0.050 (0.000-0.056) ng/mL Total Protein (6.4-8.2) g/dL Albumin (3.4-5.0) g/dL Globulin (2.6-4.0) g/dL Albumin/Globulin Ratio (0.9-1.6) Lipase (73-393) U/L Urine Color Urine Appearance Urine pH (5.0-8.0) Ur Specific [place] (1.001-1.035) Urine Protein (NEGATIVE) mg/dL Urine Glucose (UA) (NEGATIVE) mg/dL Urine Ketones (NEGATIVE) mg/dL Urine Occult Blood (NEGATIVE) Urine Nitrite (NEGATIVE) Urine Bilirubin (NEGATIVE) Urine Urobilinogen (<2.0) EU/dL Ur Leukocyte Esterase (NEGATIVE) Urine RBC (0-2/HPF) Urine WBC (0-5/HPF) Ur Epithelial Cells (NONE-FEW) Amorphous Sediment (NEGATIVE) Urine Bacteria (NEGATIVE) Urine Mucus (NONE-MOD) Meds: Medications Generic Name Dose Route Start Last Admin Trade Name [place] PRN Reason Stop Dose Admin Sodium Chloride 10 ml 12/19/19 18:05 Saline Flush FLUSH ASDIRECTED PRN Keep Vein Open Sodium Chloride 2.5 ml 12/19/19 18:05 Saline Flush FLUSH ASDIRECTED PRN Keep Vein Open Discontinued Medications Generic Name Dose Route Start Last Admin Trade Name Freq PRN Reason Stop Dose Admin Al Hydroxide/Mg Hydroxide 15 0 ml 12/19/19 18:06 12/19/19 18:22 ml/ Lidocaine HCl 5 ml PO 12/19/19 18:07 1 each ONETIME ONE Administration Departure - Departure Time of Disposition: 21:27 Disposition: Against Medical Advice 07 Clinical Impression: Epigastric pain, Lung consolidation, Lung nodule, Left against medical advice Chronic kidney disease Qualifiers: Chronic kidney disease stage: stage 4 (severe) Qualified Code(s): N18.4 - Chronic kidney disease, stage 4 (severe) - Discharge Information Referrals: Janine Back MD [Primary Care Provider] - Forms: ED Department Discharge Additional Instructions: Patient left the ED prior to discharge instructions and left without hand written RX stating she will get these from her PCP in [place]. The pharmacy that patient has on file does not accept electronic prescriptions, so will call in the antibiotics tomorrow morning when the pharmacy opens. Sepsis Event Note (ED) - Evaluation Sepsis Screening Result: No Definite Risk - Focused Exam Vital Signs: Vital Signs Temp Pulse Resp BP Pulse Ox 12/19/19 19:53 98.1 F 85 20 122/89 98 12/19/19 18:00 77 20 171/87 H 99 12/19/19 16:24 97.1 F 83 16 147/84 H 100 - My Orders Last 24 Hours: My Active Orders 12/19/19 18:05 EKG Documentation Completion [RC] STAT Sodium Chloride 0.9% [Saline Flush] 10 ml FLUSH ASDIRECTED PRN Sodium Chloride 0.9% [Saline Flush] 2.5 ml FLUSH ASDIRECTED PRN Saline Lock Insert [OM.PC] Stat 12/19/19 21:21 CORONAVIRUS COVID-19 PCR PHL Stat - Assessment/Plan Last 24 Hours: My Active Orders 12/19/19 18:05 EKG Documentation Completion [RC] STAT Sodium Chloride 0.9% [Saline Flush] 10 ml FLUSH ASDIRECTED PRN Sodium Chloride 0.9% [Saline Flush] 2.5 ml FLUSH ASDIRECTED PRN Saline Lock Insert [OM.PC] Stat 12/19/19 21:21 CORONAVIRUS COVID-19 PCR PHL Stat
--- NOTE | 2019-12-19 21:12 | CT ---
INDICATION: Epigastric pain TECHNIQUE: CT chest without i.v. contrast. Coronal and sagittal reformats were obtained. COMPARISON: CXR today FINDINGS: Cardiovascular: The heart has an unremarkable appearance and size. Calcifications of the aortic valve are noted. The pulmonary arteries are unremarkable in appearance. Mild aneurysmal enlargement of the ascending aorta is noted measuring 4 cm. A persistent left SVC is noted. Mediastinum: No mass or adenopathy seen. Lung: Focal ground-glass infiltrate with mild consolidation is seen in the superior segment of the left lower lobe. There is a 5 mm nodule present in the lateral left lower lobe. Linear scarring is present in the lingula. Pleura and pericardium: No sign of pleural effusion seen. No significant pericardial effusion is present. Chest wall and axilla: No mass or adenopathy seen. Bone: Unremarkable for age. IMPRESSIONS: 1. Mild aneurysmal enlargement of the ascending aorta is noted measuring 4 cm. 2. Calcifications of the aortic valve are noted. Correlation with physical exam is recommended to exclude aortic stenosis. 3. Focal ground-glass infiltrate with mild consolidation is seen in the superior segment of the left lower lobe. Findings may be due to aspiration, pneumonia, or COVID-19 infection. 4. There is a 5 mm nodule present in the lateral left lower lobe. Comparison with any prior outside imaging is recommended. If these cannot be obtained, follow up CT in 3 months is warranted to document stability. Dictated by Prabhjot Edouard MD @ 12/19/2019 9:10:52 PM Please note that all CT scans at this facility use dose modulation, iterative reconstruction, and/or weight-based dosing when appropriate to reduce radiation dose to as low as reasonably achievable. Dictated by: Prabhjot Edouard MD @ 12/19/2019 21:10:57 (Electronically Signed)
== END 2019-12-19 21:30 | disposition left against medical advice (07) ==
LOC: MW.ED 15:48
DX: R10.13 Epigastric pain (principal); I12.9 Hypertensive chronic kidney disease with stage 1 through stage 4 chronic kidney disease, or unspecified chronic kidney disease; N18.4 Chronic kidney disease, stage 4 (severe); E11.22 Type 2 diabetes mellitus with diabetic chronic kidney disease; M19.90 Unspecified osteoarthritis, unspecified site; J18.1 Lobar pneumonia, unspecified organism; R91.1 Solitary pulmonary nodule; Z79.4 Long term (current) use of insulin; Z88.8 Allergy status to other drugs, medicaments and biological substances; Z91.040 Latex allergy status; Z79.899 Other long term (current) drug therapy; Z79.82 Long term (current) use of aspirin
CPT/HCPCS: 36415; 71045; 71250; 74176; 80053; 81001; 83690; 84484; 85025; 93005; 99284; A9270; 93010

== ENCOUNTER 2019-12-26 15:39 | Emergency (ER) | payer MEDICARE, OTHER ==
--- NOTE | 2019-12-26 15:44 | EDM.PDOC ---
ED HPI GENERAL MEDICAL PROBLEM - General Stated Complaint: NOT FEELING WELL Time Seen by Provider: 12/26/19 15:40 Source of Information: Reports: Patient History Limitations: Reports: No Limitations - History of Present Illness INITIAL COMMENTS - FREE TEXT/NARRATIVE: 69-year-old female past medical history diabetes, hypertension, CKD stage IV with a baseline creatinine of 4.5 presents for not feeling well. Notes that she was seen here last week, and told that she might have "a touch of pneumonia". She was given azithromycin and Augmentin but she is currently taking. She presents today for continued abdominal pain. Denies nausea vomiting diarrhea. She denies fevers, chest pain, shortness of breath. She notes that she had a runny nose. States she is feeling much better than when she was here last week, but still feeling unwell. She has an appointment with primary care physician on January 05. GERNEALIZED Pain Score (Numeric/FACES): 4 - Related Data Allergies Allergy/AdvReac Type Severity Reaction Status Date / Time glyburide Allergy Diarrhea Verified 12/26/19 15:53 latex Allergy Rash Verified 12/26/19 15:53 metformin Allergy Diarrhea Verified 12/26/19 15:53 Home Meds: Home Meds Aspirin [Halfprin] 81 mg PO DAILY 02/25/18 [History] Furosemide [Lasix] 40 mg PO DAILY 02/25/18 [History] Insulin Detemir [Levemir Flextouch] 15 units SUBCUT BEDTIME 02/25/18 [History] Insulin Detemir [Levemir Flextouch] 25 units SUBCUT QAM 02/25/18 [History] SitaGLIPtin [Januvia] 50 mg PO DAILY 02/25/18 [History] amLODIPine Besylate [Amlodipine Besylate] 5 mg PO BEDTIME 02/25/18 [History] glipiZIDE [Glucotrol XL] 5 mg PO BID 02/25/18 [History] Diclofenac Sodium [Voltaren] 1 dose TOP ASDIRECTED PRN 09/20/19 [History] Sodium Bicarbonate 650 mg PO TID 09/20/19 [History] Past Medical History HEENT History: Reports: Other (See Below) Other HEENT History: wears glasses, has removable dental bridge in front Cardiovascular History: Reports: Heart Murmur, Hypertension Other Cardiovascular History: has had heart murmur since her late 20's, recently checked before the AV shunt and was told she was "fine" Respiratory History: Reports: Other (See Below) Gastrointestinal History: Reports: Other (See Below) Other Gastrointestinal History: occasional heartburn- takes Tums Genitourinary History: Reports: Renal Disease Other Genitourinary History: CKD Stage 5- left wrist AV fistula [employer] History: Reports: Musculoskeletal History: Reports: Arthritis, Other (See Below) Neurological History: Reports: Concussion Psychiatric History: Reports: None Endocrine/Metabolic History: Reports: Diabetes, Type II, IDDM Hematologic History: Reports: Blood Transfusion(s) Immunologic History: Reports: None Oncologic (Cancer) History: Reports: None Dermatologic History: Reports: None - Infectious Disease History Infectious Disease History: Reports: Chicken Pox - Past Surgical History Head Surgeries/Procedures: Reports: None HEENT Surgical History: Reports: Tonsillectomy Cardiovascular Surgical History: Reports: Vascular Surgery Other Cardiovascular Surgeries/Procedures: Has AV fistula in left wrist GI Surgical History: Reports: Appendectomy Female Surgical History: Reports: Other (See Below) Other Female Surgeries/Procedures: Laparoscopic removal of Uterine fibroid Musculoskeletal Surgical History: Reports: Arthroscopic Knee Other Musculoskeletal Surgeries/Procedures:: Arthroscopy for torn ligament and removal of Bakers cyst right knee Social & Family History - Family History Family Medical History: Noncontributory - Caffeine Use Caffeine Use: Reports: None ED ROS GENERAL - Review of Systems Review Of Systems: Comprehensive ROS is negative, except as noted in HPI. ED EXAM, GENERAL - Physical Exam Exam: See Below Exam Limited By: No Limitations General Appearance: Alert, WD/WN, No Apparent Distress Ears: Normal External Exam Nose: Normal Inspection Throat/Mouth: Normal Voice, No Airway Compromise Head: Atraumatic, Normocephalic Neck: Normal Inspection Respiratory/Chest: No Respiratory Distress, Lungs Clear, Normal Breath Sounds, No Accessory Muscle Use Cardiovascular: Normal Peripheral Pulses, Regular Rate, Rhythm GI/Abdominal: Soft, Non-Tender Extremities: Normal Inspection Neurological: Alert Psychiatric: Normal Affect, Normal Mood Skin Exam: Warm, Dry, Intact, Normal Color #1 Interpretation EKG Date: 12/26/19 Time: 16:42 Rhythm: NSR Rate (Beats/Min): 90 [place]: Normal P-Wave: Present QRS: Normal ST-T: Normal QT: Normal Comparison: No Change (no ischemic changes; no changes from prior) Course - Vital Signs Last Recorded V/S: Last Vital Signs Temp 97.1 F 12/26/19 15:58 Pulse 90 12/26/19 16:54 Resp 21 H 12/26/19 16:54 BP 131/69 12/26/19 16:54 Pulse Ox 94 L 12/26/19 16:54 - Orders/Labs/Meds Orders: Active Orders 24 hr Category Date Time Status Blood Glucose Check, Bedside [RC] ONETIME Care 12/26/19 15:59 Active Cardiac Monitoring [RC] . DIRECTED Care 12/26/19 15:58 Active EKG Documentation Completion [RC] STAT Care 12/26/19 15:58 Active CORONAVIRUS COVID-19 PCR PHL Stat Lab 12/26/19 16:49 Received Sodium Chloride 0.9% [Saline Flush] Med 12/26/19 15:58 Active 10 ml FLUSH ASDIRECTED PRN Sodium Chloride 0.9% [Saline Flush] Med 12/26/19 15:58 Active 2.5 ml FLUSH ASDIRECTED PRN Saline Lock Insert [OM.PC] Stat Oth 12/26/19 15:58 Ordered Medication Orders Sodium Chloride (Saline Flush) 10 ml FLUSH ASDIRECTED PRN PRN Reason: Keep Vein Open Last Admin: 12/26/19 16:25 Dose: 10 ml Documented by: BATSHEVA Sodium Chloride (Saline Flush) 2.5 ml FLUSH ASDIRECTED PRN PRN Reason: Keep Vein Open Last Admin: 12/26/19 16:25 Dose: 2.5 ml Documented by: BATSHEVA Labs: Laboratory Tests 12/26/19 12/26/19 12/26/19 Range/Units 16:13 16:22 16:22 WBC 6.91 (4.0-11.0) K/uL RBC 4.18 L (4.30-5.90) M/uL Hgb 11.8 L (12.0-16.0) g/dL Hct 35.0 L (36.0-46.0) % MCV 83.7 (80.0-98.0) fL MCH 28.2 (27.0-32.0) pg MCHC 33.7 (31.0-37.0) g/dL RDW Std Deviation 43.2 (28.0-62.0) fl RDW Coeff of Patrice 14 (11.0-15.0) % Plt Count 150 (150-400) K/uL MPV 10.80 (7.40-12.00) fL Neut % (Auto) 79.8 (48.0-80.0) % Lymph % (Auto) 9.8 L (16.0-40.0) % [place] % (Auto) 10.1 (0.0-15.0) % Eos % (Auto) 0.0 (0.0-7.0) % Baso % (Auto) 0.3 (0.0-1.5) % Neut # (Auto) 5.5 (1.4-5.7) K/uL Lymph # (Auto) 0.7 (0.6-2.4) K/uL [place] # (Auto) 0.7 (0.0-0.8) K/uL Eos # (Auto) 0.0 (0.0-0.7) K/uL Baso # (Auto) 0.0 (0.0-0.1) K/uL Nucleated RBC % 0.0 /100WBC Nucleated RBCs # 0 K/uL Lactate 0.5 (0.20-2.00) mmol/L Sodium (136-145) mmol/L Potassium (3.5-5.1) mmol/L Chloride (98-107) mmol/L Carbon Dioxide (21.0-32.0) mmol/L BUN (7.0-18.0) mg/dL Creatinine (0.6-1.0) mg/dL Est Cr Clr Drug Dosing Estimated GFR (MDRD) ml/min Glucose (74-106) mg/dL POC Glucose 70 (60-110) mg/dL Calcium (8.5-10.1) mg/dL Magnesium (1.8-2.4) mg/dL Total Bilirubin (0.2-1.0) mg/dL AST (15-37) IU/L ALT (14-63) IU/L Alkaline Phosphatase (46-116) U/L Troponin I (0.000-0.056) ng/mL Total Protein (6.4-8.2) g/dL Albumin (3.4-5.0) g/dL Globulin (2.6-4.0) g/dL Albumin/Globulin Ratio (0.9-1.6) Lipase (73-393) U/L Urine Color Urine Appearance Urine pH (5.0-8.0) Ur Specific [place] (1.001-1.035) Urine Protein (NEGATIVE) mg/dL Urine Glucose (UA) (NEGATIVE) mg/dL Urine Ketones (NEGATIVE) mg/dL Urine Occult Blood (NEGATIVE) Urine Nitrite (NEGATIVE) Urine Bilirubin (NEGATIVE) Urine Urobilinogen (<2.0) EU/dL Ur Leukocyte Esterase (NEGATIVE) Urine RBC (0-2/HPF) Urine WBC (0-5/HPF) Ur Epithelial Cells (NONE-FEW) Urine Bacteria (NEGATIVE) SARS CoV-2 RNA Rapid NYASIA (NEGATIVE) 12/26/19 12/26/19 12/26/19 Range/Units 16:22 16:40 16:49 WBC (4.0-11.0) K/uL RBC (4.30-5.90) M/uL Hgb (12.0-16.0) g/dL Hct (36.0-46.0) % MCV (80.0-98.0) fL MCH (27.0-32.0) pg MCHC (31.0-37.0) g/dL RDW Std Deviation (28.0-62.0) fl RDW Coeff of Patrice (11.0-15.0) % Plt Count (150-400) K/uL MPV (7.40-12.00) fL Neut % (Auto) (48.0-80.0) % Lymph % (Auto) (16.0-40.0) % [place] % (Auto) (0.0-15.0) % Eos % (Auto) (0.0-7.0) % Baso % (Auto) (0.0-1.5) % Neut # (Auto) (1.4-5.7) K/uL Lymph # (Auto) (0.6-2.4) K/uL [place] # (Auto) (0.0-0.8) K/uL Eos # (Auto) (0.0-0.7) K/uL Baso # (Auto) (0.0-0.1) K/uL Nucleated RBC % /100WBC Nucleated RBCs # K/uL Lactate (0.20-2.00) mmol/L Sodium 134 L (136-145) mmol/L Potassium 4.3 (3.5-5.1) mmol/L Chloride 99 (98-107) mmol/L Carbon Dioxide 22.7 (21.0-32.0) mmol/L BUN 59 H (7.0-18.0) mg/dL Creatinine 4.5 H (0.6-1.0) mg/dL Est Cr Clr Drug Dosing TNP Estimated GFR (MDRD) 9.6 ml/min Glucose 76 (74-106) mg/dL POC Glucose (60-110) mg/dL Calcium 7.5 L (8.5-10.1) mg/dL Magnesium 1.9 (1.8-2.4) mg/dL Total Bilirubin 0.4 (0.2-1.0) mg/dL AST 25 (15-37) IU/L ALT 20 (14-63) IU/L Alkaline Phosphatase 51 (46-116) U/L Troponin I < 0.050 (0.000-0.056) ng/mL Total Protein 6.7 (6.4-8.2) g/dL Albumin 2.7 L (3.4-5.0) g/dL Globulin 4.0 (2.6-4.0) g/dL Albumin/Globulin Ratio 0.7 L (0.9-1.6) Lipase 296 (73-393) U/L Urine Color YELLOW Urine Appearance CLEAR Urine pH 6.0 (5.0-8.0) Ur Specific [place] 1.020 (1.001-1.035) Urine Protein 100 H (NEGATIVE) mg/dL Urine Glucose (UA) NEGATIVE (NEGATIVE) mg/dL Urine Ketones NEGATIVE (NEGATIVE) mg/dL Urine Occult Blood SMALL H (NEGATIVE) Urine Nitrite NEGATIVE (NEGATIVE) Urine Bilirubin NEGATIVE (NEGATIVE) Urine Urobilinogen 0.2 (<2.0) EU/dL Ur Leukocyte Esterase NEGATIVE (NEGATIVE) Urine RBC 2-3 (0-2/HPF) Urine WBC 0-1 (0-5/HPF) Ur Epithelial Cells RARE (NONE-FEW) Urine Bacteria RARE (NEGATIVE) SARS CoV-2 RNA Rapid NYASIA POSITIVE H (NEGATIVE) Meds: Medications Generic Name Dose Route Start Last Admin Trade Name Freq PRN Reason Stop Dose Admin Sodium Chloride 10 ml 12/26/19 15:58 12/26/19 16:25 Saline Flush FLUSH 10 ml ASDIRECTED PRN Administration Keep Vein Open Sodium Chloride 2.5 ml 12/26/19 15:58 12/26/19 16:25 Saline Flush FLUSH 2.5 ml ASDIRECTED PRN Administration Keep Vein Open - Re-Assessments/Exams Free Text/Narrative Re-Assessment/Exam: 12/26/19 17:27 Labs are grossly unremarkable aside from patient's chronically elevated creatinine. Patient's chest x-ray shows persistent infiltrate. Patient's COVID-19 testing is positive. Patient is saturating well on room air. Will discharge patient with PMD follow-up and strict return precautions. Departure - Departure Time of Disposition: 17:28 Disposition: Home, Self-Care 01 Condition: Good Clinical Impression: COVID-19 - Discharge Information Instructions: COVID-19 Frequently Asked Questions, Prevent the Spread of COVID- 19 if You Are Sick - [facility] Referrals: PCP,None [Primary Care Provider] - Additional Instructions: Your work-up was remarkable for positive COVID-19 test. Information about COVID-19 has been provided. If you are experiencing difficulty breathing, chest pain, or any concerning symptoms, you should come back to the emergency dep artment for reassessment. Otherwise, you should quarantine at home to prevent the spread of COVID-19 to others, and follow-up with your primary care physician. The following information is given to patients seen in the emergency department who are being discharged to home. This information is to outline your options for follow-up care. We provide all patients seen in our emergency department wit h a follow-up referral. The need for follow-up, as well as the timing and circumstances, are variable depending upon the specifics of your emergency department visit. If you don't have a primary care physician on staff, we will provide you with a referral. We always advise you to contact your personal physician following an emergency department visit to inform them of the circumstance of the visit and for follow-up with them and/or the need for any referrals to a consulting specialist. The emergency department will also refer you to a specialist when appropriate. This referral assures that you have the opportunity for follow-up care with a specialist. All of these measure are taken in an effort to provide you with optimal care, which includes your follow-up. Under all circumstances we always encourage you to contact your private physician who remains a resource for coordinating your care. When calling for follow-up care, please make the office aware that this follow-up is from your recent emergency room visit. If for any reason you are refused follow-up, please contact the [facility] Emergency Department at and asked to speak to the emergency department charge nurse. Please follow up with your primary care physician. If you do not have a primary care physician, see below: [facility] [address] [place] [id number] My [facility] [address] [place] [address] Sepsis Event Note (ED) - Focused Exam Vital Signs: Vital Signs Temp Pulse Resp BP Pulse Ox 12/26/19 16:54 90 21 H 131/69 94 L 12/26/19 15:58 97.1 F 101 H 16 126/67 95 - My Orders Last 24 Hours: My Active Orders 12/26/19 15:58 Cardiac Monitoring [RC] . DIRECTED EKG Documentation Completion [RC] STAT Sodium Chloride 0.9% [Saline Flush] 10 ml FLUSH ASDIRECTED PRN Sodium Chloride 0.9% [Saline Flush] 2.5 ml FLUSH ASDIRECTED PRN Saline Lock Insert [OM.PC] Stat 12/26/19 15:59 Blood Glucose Check, Bedside [RC] ONETIME 12/26/19 16:49 CORONAVIRUS COVID-19 PCR PHL Stat - Assessment/Plan Last 24 Hours: My Active Orders 12/26/19 15:58 Cardiac Monitoring [RC] . DIRECTED EKG Documentation Completion [RC] STAT Sodium Chloride 0.9% [Saline Flush] 10 ml FLUSH ASDIRECTED PRN Sodium Chloride 0.9% [Saline Flush] 2.5 ml FLUSH ASDIRECTED PRN Saline Lock Insert [OM.PC] Stat 12/26/19 15:59 Blood Glucose Check, Bedside [RC] ONETIME 12/26/19 16:49 CORONAVIRUS COVID-19 PCR PHL Stat
[2019-12-26] MEDS ORDERED: Sodium Chloride 0.9% 2.5 ML Syringe FLUSH PRN (15:58)
[2019-12-26] MEDS ORDERED: Sodium Chloride 0.9% 10 ML Syringe FLUSH PRN (15:58)
--- NOTE | 2019-12-26 16:45 | CR ---
INDICATION: Rule out pneumonia TECHNIQUE: Chest 1 view COMPARISON: CT chest December 19, 2019 FINDINGS: There is demonstration of increasing ground-glass opacity within the superior aspect of the left lower lobe. The right hemithorax is clear. The cardiac silhouette is stable from comparison. The bony thorax is grossly intact. There is no pneumothorax. IMPRESSION: Increasing airspace opacification of the superior aspect of the left lower lobe consistent with worsening infiltrate from comparison exam. Dictated by Kenney Mckenna MD @ Dec 26 2019 4:42PM Signed by Dr. Kenney Mckenna @ Dec 26 2019 4:44PM
[2019-12-26 17:05] LABS: BLOOD UREA NITROGEN,BUN 59 mg/dL (7.0-18.0); CARBON DIOXIDE,CO2 22.7 mmol/L (21.0-32.0); CHLORIDE,CL 99 mmol/L (98-107); GLUCOSE RANDOM 76 mg/dL (74-106); LIPASE 296 U/L (73-393); POTASSIUM,K 4.3 mmol/L (3.5-5.1); SODIUM,NA 134 mmol/L (136-145)
== END 2019-12-26 17:50 | disposition home or self-care (01) ==
LOC: MW.ED 15:39
DX: U07.1 COVID-19 (principal); I12.0 Hypertensive chronic kidney disease with stage 5 chronic kidney disease or end stage renal disease; N18.5 Chronic kidney disease, stage 5; M19.90 Unspecified osteoarthritis, unspecified site; E11.22 Type 2 diabetes mellitus with diabetic chronic kidney disease; Z88.8 Allergy status to other drugs, medicaments and biological substances; Z91.040 Latex allergy status; Z79.82 Long term (current) use of aspirin; Z79.4 Long term (current) use of insulin; Z79.899 Other long term (current) drug therapy
CPT/HCPCS: 36415; 71045; 80053; 81001; 82962; 83605; 83690; 83735; 84484; 85025; 93005; 99284; U0002; 99283

== ENCOUNTER 2019-12-29 01:44 | Emergency (ER) | payer MEDICARE, OTHER ==
[2019-12-29] MEDS ORDERED: Sodium Chloride 0.9% 2.5 ML Syringe FLUSH PRN (02:11)
[2019-12-29] MEDS ORDERED: Sodium Chloride 0.9% 1,000 ML IV ONE (02:11)
[2019-12-29] MEDS ORDERED: Ondansetron 4 MG/2 ML SDV IVPUSH ONE (02:11)
[2019-12-29] MEDS ORDERED: Sodium Chloride 0.9% 10 ML Syringe FLUSH PRN (02:11)
--- NOTE | 2019-12-29 02:38 | CR ---
INDICATION: COVID-19, hypoglycemic TECHNIQUE: Chest radiograph 1 view COMPARISON: 12/26/2019, CT 12/19/2019 FINDINGS: Mediastinum: The right mediastinal border has mildly convex appearance which may be due to aneurysmal enlargement of the ascending aorta seen on prior CT. Mild stable cardiomegaly is noted. Lung: Patchy airspace infiltrates are present in the mid lower lung zones bilaterally, mildly increased from prior examination and consistent with patient`s history of COVID-19 infection. No sign of pleural effusion seen. No pneumothorax is identified. Bone and Soft tissue: Unremarkable for age. IMPRESSIONS: 1. Patchy airspace infiltrates are present in the mid lower lung zones bilaterally, mildly increased from prior examination and consistent with patient`s history of COVID-19 infection. 2. Mild stable cardiomegaly is noted. 3. The right mediastinal border has mildly convex appearance which may be due to aneurysmal enlargement of the ascending aorta seen on prior CT. Dictated by Prabhjot Edouard MD @ 12/29/2019 2:35:35 AM Dictated by: Prabhjot Edouard MD @ 12/29/2019 02:35:37 (Electronically Signed)
[2019-12-29 03:03] LABS: POTASSIUM,K 3.6 mmol/L (3.5-5.1)
--- NOTE | 2019-12-29 03:27 | EDM.PDOC ---
ED HPI GENERAL MEDICAL PROBLEM - General Chief Complaint: Diabetic Complaint Stated Complaint: LBP Time Seen by Provider: 12/29/19 02:08 - History of Present Illness INITIAL COMMENTS - FREE TEXT/NARRATIVE: HISTORY AND PHYSICAL: History of present illness: This is a 69-year-old female with history significant for hypertension, diabetes (on oral hypoglycemic agents as well as insulin), chronic kidney disease, recent diagnosis of coronavirus who presents ER today secondary to episode of feeling weak and dizzy and was noted to have a blood sugar in the 80s by EMS. Patient denies any chest pain, shortness of breath, nausea, vomiting, diarrhea, dysuria, frequency, urgency. Patient reports no change in her bowel or bladder habits. Patient reports that she is had decreased p.o. intake and her last oral intake was approximately 10 hours ago secondary to no appetite. Patient denies any abdominal discomfort. Patient has any chest pressure or discomfort. Patient reports that she feels much improved in the ED. Review of systems: As per history of present illness and below otherwise all systems reviewed and negative. Past medical history: As per history of present illness and as reviewed below otherwise noncontr ibutory. Surgical history: As per history of present illness and as reviewed below otherwise noncontributory. Social history: No reported history of drug or alcohol abuse. Family history: As per history of present illness and as reviewed below otherwise noncontributory. Physical exam: HEENT: Atraumatic, normocephalic, pupils reactive, negative for conjunctival pallor or scleral icterus, mucous membranes moist, throat clear, neck supple, nontender, trachea midline. Lungs: Clear to auscultation, breath sounds equal bilaterally, chest nontender. Heart: Regular rate and rhythm with S1-S2 Abd: Soft, nondistended, no rebound/guarding, no psoas or obturator signs, no tenderness at Mcberney's point, no Ortega's sign. Pt does not present with an exam that would be consistent with an acute surgical abdomen at this time, nontender to palpation. Negative for costovertebral tenderness. Pelvis: Stable nontender. Genitourinary: Deferred. Rectal: Deferred. Extremities: Atraumatic, negative for cords or calf pain. Neurovascular unremarkable. Neuro: Awake, alert, oriented. Cranial nerves II through XII unremarkable. Cerebellum unremarkable. Motor and sensory unremarkable throughout. Exam nonfocal. Diagnostics: CBC, CMP, urinalysis, chest x-ray Therapeutics: Patient will be given oral supplementation for hyperglycemia while in the ED. Assessment and plan: This is a 69-year-old female with history of hypertension, diabetes, chronic kidney disease who presents ER today with an episode of confusion, dizziness and was noted to be relatively hypoglycemic. While in the ER, the patient is alert awake and orient x3. Patient is resting comfortably but is very easily arousable conversant and appropriate. Patient reports she currently lives alone. Patient is positive for coronavirus. Patient's pulse ox is 93 to 94% on room air while awake and sitting up. Patient is tolerating p.o.'s well in the ED. Patient ate an entire peanut butter jelly sandwich as well as a canister of apple juice without any difficulty. At this time, I do not feel that the patient meets inpatient criteria for treatment of coronavirus given her adequate oxygenation and her comfort level. Patient re ports that she currently is not feeling any shortness of breath and she feels much improved after eating in the ED. Patient was given dextrose by EMS prior to arrival and her blood sugar went from the 80s to greater than 100 prior to arrival to the ED and she reports that she has felt well ever since. Reassessment at the time of disposition demonstrates that the patient is in no acute distress. The patient has remained stable throughout the entire ED visit and is without objective evidence for acute process requiring urgent intervention or hospitalization. The patient is stable for discharge, counseling is provided as documented above, discussed symptomatic treatment and specific conditions for return. I have spoken with the patient/caregiver and discussed todays findings, in addition to providing specific details for the plan of care. Questions are answered and there is agreement with the plan. Definitive disposition and diagnosis as appropriate pending reevaluation and review of above. - Related Data Allergies Allergy/AdvReac Type Severity Reaction Status Date / Time glyburide Allergy Diarrhea Verified 12/29/19 01:50 [employer] latex Allergy Rash Verified 12/29/19 01:50 [employer] metformin Allergy Diarrhea Verified 12/29/19 01:50 [employer] Home Meds: Home Meds Aspirin [Halfprin] 81 mg PO DAILY 02/25/18 [History] Furosemide [Lasix] 40 mg PO DAILY 02/25/18 [History] Insulin Detemir [Levemir Flextouch] 15 units SUBCUT BEDTIME 02/25/18 [History] Insulin Detemir [Levemir Flextouch] 25 units SUBCUT QAM 02/25/18 [History] SitaGLIPtin [Januvia] 50 mg PO DAILY 02/25/18 [History] amLODIPine Besylate [Amlodipine Besylate] 5 mg PO BEDTIME 02/25/18 [History] glipiZIDE [Glucotrol XL] 5 mg PO BID 02/25/18 [History] Diclofenac Sodium [Voltaren] 1 dose TOP ASDIRECTED PRN 09/20/19 [History] Sodium Bicarbonate 650 mg PO TID 09/20/19 [History] Past Medical History HEENT History: Reports: Other (See Below) Other HEENT History: wears glasses, has removable dental bridge in front Cardiovascular History: Reports: Heart Murmur, Hypertension Other Cardiovascular History: has had heart murmur since her late 20's, recently checked before the AV shunt and was told she was "fine" Respiratory History: Reports: Other (See Below) Gastrointestinal History: Reports: Other (See Below) Other Gastrointestinal History: occasional heartburn- takes Tums Genitourinary History: Reports: Renal Disease Other Genitourinary History: CKD Stage 5- left wrist AV fistula [employer] HAND History: Reports: Musculoskeletal History: Reports: Arthritis, Other (See Below) Neurological History: Reports: Concussion Psychiatric History: Reports: None Endocrine/Metabolic History: Reports: Diabetes, Type II, IDDM Insulin Pump Model and Commercial Leasing Agent: None Hematologic History: Reports: Blood Transfusion(s) Immunologic History: Reports: None Oncologic (Cancer) History: Reports: None Dermatologic History: Reports: None - Infectious Disease History Infectious Disease History: Reports: None - Past Surgical History Head Surgeries/Procedures: Reports: None HEENT Surgical History: Reports: Tonsillectomy Cardiovascular Surgical History: Reports: Vascular Surgery Other Cardiovascular Surgeries/Procedures: Has AV fistula in left wrist GI Surgical History: Reports: Appendectomy Female Surgical History: Reports: Other (See Below) Other Female Surgeries/Procedures: Laparoscopic removal of Uterine fibroid Musculoskeletal Surgical History: Reports: Arthroscopic Knee Other Musculoskeletal Surgeries/Procedures:: Arthroscopy for torn ligament and removal of Bakers cyst right knee Social & Family History - Family History Family Medical History: Noncontributory - Tobacco Use Tobacco Use Status *Q: Never Tobacco User - Caffeine Use Caffeine Use: Reports: None - Recreational Drug Use Recreational Drug Use: No ED ROS GENERAL - Review of Systems Review Of Systems: See Below ED EXAM GENERAL NO PERIP PULSE - Physical Exam Exam: See Below Course - Vital Signs Last Recorded V/S: Last Vital Signs Temp 97 F 12/29/19 01:45 [employer] Pulse 93 12/29/19 01:45 [employer] Resp 18 12/29/19 01:45 [employer] BP 136/95 H 12/29/19 01:45 [employer] Pulse Ox 92 L 12/29/19 01:45 [employer] - Orders/Labs/Meds Orders: Active Orders 24 hr Category Date Time Status Sodium Chloride 0.9% [Saline Flush] Med 12/29/19 02:11 Active 10 ml FLUSH ASDIRECTED PRN Sodium Chloride 0.9% [Saline Flush] Med 12/29/19 02:11 Active 2.5 ml FLUSH ASDIRECTED PRN Saline Lock Insert [OM.PC] Stat Oth 12/29/19 02:11 Ordered Medication Orders Sodium Chloride (Saline Flush) 10 ml FLUSH ASDIRECTED PRN PRN Reason: Keep Vein Open Sodium Chloride (Saline Flush) 2.5 ml FLUSH ASDIRECTED PRN PRN Reason: Keep Vein Open Labs: Laboratory Tests 12/29/19 12/29/19 12/29/19 Range/Units 02:28 02:28 02:45 WBC 16.11 H (4.0-11.0) K/uL RBC 4.08 L (4.30-5.90) M/uL Hgb 11.4 L (12.0-16.0) g/dL Hct 34.3 L (36.0-46.0) % MCV 84.1 (80.0-98.0) fL MCH 27.9 (27.0-32.0) pg MCHC 33.2 (31.0-37.0) g/dL RDW Std Deviation 44.4 (28.0-62.0) fl RDW Coeff of Patrice 14 (11.0-15.0) % Plt Count 180 (150-400) K/uL MPV 10.50 (7.40-12.00) fL Add Manual Diff YES Neutrophils % (Manual) 94 H (48.0-80.0) % Lymphocytes % (Manual) 2 L (16.0-40.0) % Monocytes % (Manual) 4 (0.0-15.0) % Nucleated RBC % 0.0 /100WBC Absolute Seg Neuts 15.1 H (1.4-5.7) Lymphocytes # (Manual) 0.3 L (0.6-2.4) Monocytes # (Manual) 0.6 (0.0-0.8) Nucleated RBCs # 0 K/uL Sodium 133 L (136-145) mmol/L Potassium 3.6 (3.5-5.1) mmol/L Chloride 99 (98-107) mmol/L Carbon Dioxide 24.0 (21.0-32.0) mmol/L BUN 57 H (7.0-18.0) mg/dL Creatinine 4.5 H (0.6-1.0) mg/dL Est Cr Clr Drug Dosing 10.32 mL/min Estimated GFR (MDRD) 9.6 ml/min Glucose 152 H (74-106) mg/dL Calcium 7.2 L (8.5-10.1) mg/dL Total Bilirubin 0.4 (0.2-1.0) mg/dL AST 32 (15-37) IU/L ALT 21 (14-63) IU/L Alkaline Phosphatase 45 L (46-116) U/L Total Protein 6.3 L (6.4-8.2) g/dL Albumin 2.4 L (3.4-5.0) g/dL Globulin 3.9 (2.6-4.0) g/dL Albumin/Globulin Ratio 0.6 L (0.9-1.6) Lipase 277 (73-393) U/L Urine Color YELLOW Urine Appearance SLT CLOUDY Urine pH 6.5 (5.0-8.0) Ur Specific [place] 1.020 (1.001-1.035) Urine Protein 100 H (NEGATIVE) mg/dL Urine Glucose (UA) NEGATIVE (NEGATIVE) mg/dL Urine Ketones NEGATIVE (NEGATIVE) mg/dL Urine Occult Blood SMALL H (NEGATIVE) Urine Nitrite NEGATIVE (NEGATIVE) Urine Bilirubin NEGATIVE (NEGATIVE) Urine Urobilinogen 0.2 (<2.0) EU/dL Ur Leukocyte Esterase NEGATIVE (NEGATIVE) Urine RBC 1-3 (0-2/HPF) Urine WBC 0-1 (0-5/HPF) Ur Epithelial Cells RARE (NONE-FEW) Urine Bacteria RARE (NEGATIVE) Meds: Medications Generic Name Dose Route Start Last Admin Trade Name Freq PRN Reason Stop Dose Admin Sodium Chloride 10 ml 12/29/19 02:11 Saline Flush FLUSH ASDIRECTED PRN Keep Vein Open Sodium Chloride 2.5 ml 12/29/19 02:11 Saline Flush FLUSH ASDIRECTED PRN Keep Vein Open Discontinued Medications Generic Name Dose Route Start Last Admin Trade Name Freq PRN Reason Stop Dose Admin Sodium Chloride 1,000 mls @ 999 mls/hr 12/29/19 02:11 12/29/19 02:31 Normal Saline IV 12/29/19 03:11 999 mls/hr .Bolus ONE Administration Ondansetron HCl 4 mg 12/29/19 02:11 12/29/19 02:31 Zofran IVPUSH 12/29/19 02:12 4 mg ONETIME ONE Administration Departure - Departure Time of Disposition: 03:27 Disposition: Home, Self-Care 01 Condition: Good Clinical Impression: Hypoglycemia - Discharge Information Instructions: Hypoglycemia, [id number] Referrals: PCP,None [Primary Care Provider] - Additional Instructions: Please make sure that you are eating 3 meals every day. If you are skipping meals, you must keep a close eye on your blood sugar and you might need to hold your dose of diabetes medications. Currently your blood sugar has remained stable in the ER. Your oxygen level is 93% on room air without any supplemental oxygen. Your chest x-ray reveals some inflammation of the lungs consistent with your diagnosis of coronavirus. Please drink plenty of fluids and get plenty of rest over the next 1 to 2 days. 1. Your COVID-19 screening is positive. That means you do have the coronavirus and you are considered contagious. Your vital signs and oxygen saturation are well enough that you were able to monitor your symptoms at home. Continue to monitor for trouble breathing, new confusion or inability to arouse, bluish li ps or face or any of the other symptoms we discussed -if this occurs please return to the emergency room. 2. Please self quarantine over the next 10 days. Inform any persons that you have been in contact with since you started becoming symptomatic that you have tested positive; they should be made aware and take the appropriate steps as needed. 3. You can take NyQuil during the evening to help get a restful night sleep. May alternate Tylenol and ibuprofen as needed for pain and fever management. 4. The [facility] department will be calling you and following up with you. The [place] [facility] Hotline phone number , They are open Monday - Monday 7am - 7pm. Follow up with your primary care provider for re-evaluation and re-testing after the 10 day quarantine and discuss when you should be seen. The following information is given to patients seen in the emergency department who are being discharged to home. This information is to outline your options for follow-up care. We provide all patients seen in our emergency department with a follow-up referral. The need for follow-up, as well as the timing and circumstances, are variable depending upon the specifics of your emergency department visit. If you don't have a primary care physician on staff, we will provide you with a referral. We always advise you to contact your personal physician following an emergency department visit to inform them of the circumstance of the visit and for follow-up with them and/or the need for any referrals to a consulting specialist. The emergency department will also refer you to a specialist when appropriate. This referral assures that you have the opportunity for follow-up care with a specialist. All of these measure are taken in an effort to provide you with optimal care, which includes your follow-up. Under all circumstances we always encourage you to contact your private physician who remains a resource for coordinating your care. When calling for follow-up care, please make the office aware that this follow-up is from your recent emergency room visit. If for any reason you are refused follow-up, please contact the [facility] Emergency Department at and asked to speak to the emergency department charge nurse. Sepsis Event Note (ED) - Evaluation Sepsis Screening Result: No Definite Risk - Focused Exam Vital Signs: Vital Signs Temp Pulse Resp BP Pulse Ox 12/29/19 01:45 [employer] 97 F 93 18 136/95 H 92 L - My Orders Last 24 Hours: My Active Orders 12/29/19 02:11 Sodium Chloride 0.9% [Saline Flush] 10 ml FLUSH ASDIRECTED PRN Sodium Chloride 0.9% [Saline Flush] 2.5 ml FLUSH ASDIRECTED PRN Saline Lock Insert [OM.PC] Stat - Assessment/Plan Last 24 Hours: My Active Orders 12/29/19 02:11 Sodium Chloride 0.9% [Saline Flush] 10 ml FLUSH ASDIRECTED PRN Sodium Chloride 0.9% [Saline Flush] 2.5 ml FLUSH ASDIRECTED PRN Saline Lock Insert [OM.PC] Stat
== END 2019-12-29 04:00 | disposition home or self-care (01) ==
LOC: MW.ED 01:44
DX: E11.649 Type 2 diabetes mellitus with hypoglycemia without coma (principal); I12.0 Hypertensive chronic kidney disease with stage 5 chronic kidney disease or end stage renal disease; E11.22 Type 2 diabetes mellitus with diabetic chronic kidney disease; N18.5 Chronic kidney disease, stage 5; Z79.82 Long term (current) use of aspirin; Z79.4 Long term (current) use of insulin; Z79.899 Other long term (current) drug therapy; Z91.040 Latex allergy status; Z88.8 Allergy status to other drugs, medicaments and biological substances
CPT/HCPCS: 36415; 71045; 80053; 81001; 82962; 83690; 85025; 96361; 96374; 99284; J2405; J7030; 99283

== ENCOUNTER 2019-12-30 11:04 | Inpatient (IN) | payer MEDICARE, OTHER ==
--- NOTE | 2019-12-30 11:06 | EDM.PDOC ---
ED HPI GENERAL MEDICAL PROBLEM - General Stated Complaint: SOB Time Seen by Provider: 12/30/19 11:05 Source of Information: Reports: Patient History Limitations: Reports: No Limitations - History of Present Illness INITIAL COMMENTS - FREE TEXT/NARRATIVE: 69-year-old female past medical history insulin-dependent diabetes, hypertension, chronic kidney disease, recently diagnosed COVID-19 infection presents for shortness of breath. Patient notes that ever since her discharge from the emergency department after diagnosis with COVID-19 she is had persistent shortness of breath. She notes a cough as well mostly nonproductive. Denies fevers or chest tightness. Her sister called EMS this morning when the patient did not answer her phone. There was concern over hypoglycemia, but patient's blood sugar was in the 80s. She states she feels generalized weakness and has had a hard time keeping anything down when she eats. - Related Data Allergies Allergy/AdvReac Type Severity Reaction Status Date / Time glyburide Allergy Diarrhea Verified 12/30/19 11:08 latex Allergy Rash Verified 12/30/19 11:08 metformin Allergy Diarrhea Verified 12/30/19 11:08 Home Meds: Home Meds Aspirin [Halfprin] 81 mg PO DAILY 02/25/18 [History] Furosemide [Lasix] 40 mg PO DAILY 02/25/18 [History] Insulin Detemir [Levemir Flextouch] 15 units SUBCUT BEDTIME 02/25/18 [History] Insulin Detemir [Levemir Flextouch] 25 units SUBCUT QAM 02/25/18 [History] SitaGLIPtin [Januvia] 50 mg PO DAILY 02/25/18 [History] amLODIPine Besylate [Amlodipine Besylate] 5 mg PO BEDTIME 02/25/18 [History] glipiZIDE [Glucotrol XL] 5 mg PO BID 02/25/18 [History] Diclofenac Sodium [Voltaren] 1 dose TOP ASDIRECTED PRN 09/20/19 [History] Sodium Bicarbonate 650 mg PO TID 09/20/19 [History] Past Medical History HEENT History: Reports: Other (See Below) Other HEENT History: wears glasses, has removable dental bridge in front Cardiovascular History: Reports: Heart Murmur, Hypertension Other Cardiovascular History: has had heart murmur since her late 20's, recently checked before the AV shunt and was told she was "fine" Respiratory History: Reports: Other (See Below) Gastrointestinal History: Reports: Other (See Below) Other Gastrointestinal History: occasional heartburn- takes Tums Genitourinary History: Reports: Renal Disease Other Genitourinary History: CKD Stage 5- left wrist AV fistula 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: Musculoskeletal History: Reports: Arthritis, Other (See Below) Neurological History: Reports: Concussion Psychiatric History: Reports: None Endocrine/Metabolic History: Reports: Diabetes, Type II, IDDM Insulin Pump Model and Satellite Project Site Monitor: None Hematologic History: Reports: Blood Transfusion(s) Immunologic History: Reports: None Oncologic (Cancer) History: Reports: None Dermatologic History: Reports: None - Infectious Disease History Infectious Disease History: Reports: None - Past Surgical History Head Surgeries/Procedures: Reports: None HEENT Surgical History: Reports: Tonsillectomy Cardiovascular Surgical History: Reports: Vascular Surgery Other Cardiovascular Surgeries/Procedures: Has AV fistula in left wrist GI Surgical History: Reports: Appendectomy Female Surgical History: Reports: Other (See Below) Other Female Surgeries/Procedures: Laparoscopic removal of Uterine fibroid Musculoskeletal Surgical History: Reports: Arthroscopic Knee Other Musculoskeletal Surgeries/Procedures:: Arthroscopy for torn ligament and removal of Bakers cyst right knee Social & Family History - Family History Family Medical History: Noncontributory - Caffeine Use Caffeine Use: Reports: None ED ROS GENERAL - Review of Systems Review Of Systems: Comprehensive ROS is negative, except as noted in HPI. ED EXAM, GENERAL - Physical Exam Exam: See Below Exam Limited By: No Limitations General Appearance: Alert, WD/WN, No Apparent Distress Throat/Mouth: Normal Voice, No Airway Compromise Head: Atraumatic, Normocephalic Neck: Normal Inspection Respiratory/Chest: No Respiratory Distress, Lungs Clear, Normal Breath Sounds, No Accessory Muscle Use Cardiovascular: Normal Peripheral Pulses, Regular Rate, Rhythm GI/Abdominal: Soft, Non-Tender Extremities: Normal Inspection Neurological: Alert Psychiatric: Normal Affect, Normal Mood Skin Exam: Warm, Dry, Intact, Normal Color #2 Interpretation EKG Date: 12/30/19 Time: 11:28 Rhythm: NSR Rate (Beats/Min): 92 [place]: Normal P-Wave: Present QRS: Normal ST-T: Normal QT: Normal VT/PQ Interval: 136 Course - Vital Signs Last Recorded V/S: Last Vital Signs Temp 96.6 F L 12/30/19 11:05 Pulse 75 12/30/19 13:49 Resp 17 12/30/19 13:49 BP 120/69 12/30/19 13:49 Pulse Ox 97 12/30/19 13:49 - Orders/Labs/Meds Orders: Active Orders 24 hr Category Date Time Status Cardiac Monitoring [RC] . DIRECTED Care 12/30/19 11:07 Active EKG Documentation Completion [RC] STAT Care 12/30/19 11:07 Active Pulse Oximetry [RC] ASDIRECTED Care 12/30/19 11:07 Active B-TYPE NATRIURETIC PEPTIDE,BNP [CHEM] Stat Lab 12/30/19 11:25 Received Sodium Chloride 0.9% [Saline Flush] Med 12/30/19 11:07 Active 10 ml FLUSH ASDIRECTED PRN Sodium Chloride 0.9% [Saline Flush] Med 12/30/19 11:07 Active 2.5 ml FLUSH ASDIRECTED PRN Saline Lock Insert [OM.PC] Stat Oth 12/30/19 11:07 Ordered Medication Orders Sodium Chloride (Saline Flush) 10 ml FLUSH ASDIRECTED PRN PRN Reason: Keep Vein Open Last Admin: 12/30/19 13:38 Dose: 10 ml Documented by: [email or web address] Sodium Chloride (Saline Flush) 2.5 ml FLUSH ASDIRECTED PRN PRN Reason: Keep Vein Open Last Admin: 12/30/19 13:38 Dose: 2.5 ml Documented by: [email or web address] Labs: Laboratory Tests 12/30/19 12/30/19 12/30/19 Range/Units 11:25 11:25 11:25 WBC 13.96 H (4.0-11.0) K/uL RBC 4.09 L (4.30-5.90) M/uL Hgb 11.4 L (12.0-16.0) g/dL Hct 34.5 L (36.0-46.0) % MCV 84.4 (80.0-98.0) fL MCH 27.9 (27.0-32.0) pg MCHC 33.0 (31.0-37.0) g/dL RDW Std Deviation 44.7 (28.0-62.0) fl RDW Coeff of Patrice 14 (11.0-15.0) % Plt Count 211 (150-400) K/uL MPV 10.90 (7.40-12.00) fL Neut % (Auto) 88.4 H (48.0-80.0) % Lymph % (Auto) 6.5 L (16.0-40.0) % Major % (Auto) 5.0 (0.0-15.0) % Eos % (Auto) 0.0 (0.0-7.0) % Baso % (Auto) 0.1 (0.0-1.5) % Neut # (Auto) 12.3 H (1.4-5.7) K/uL Lymph # (Auto) 0.9 (0.6-2.4) K/uL Major # (Auto) 0.7 (0.0-0.8) K/uL Eos # (Auto) 0.0 (0.0-0.7) K/uL Baso # (Auto) 0.0 (0.0-0.1) K/uL Nucleated RBC % 0.0 /100WBC Nucleated RBCs # 0 K/uL INR 1.00 APTT 28.5 (18.6-31.3) SEC D-Dimer, Quantitative 6.40 H (0.0-0.50) mg/L FEU Lactate 0.8 (0.20-2.00) mmol/L Sodium (136-145) mmol/L Potassium (3.5-5.1) mmol/L Chloride (98-107) mmol/L Carbon Dioxide (21.0-32.0) mmol/L BUN (7.0-18.0) mg/dL Creatinine (0.6-1.0) mg/dL Est Cr Clr Drug Dosing mL/min Estimated GFR (MDRD) ml/min Glucose (74-106) mg/dL Calcium (8.5-10.1) mg/dL Magnesium (1.8-2.4) mg/dL Total Bilirubin (0.2-1.0) mg/dL AST (15-37) IU/L ALT (14-63) IU/L Alkaline Phosphatase (46-116) U/L Troponin I (0.000-0.056) ng/mL C-Reactive Protein (0.00-0.90) mg/dL Total Protein (6.4-8.2) g/dL Albumin (3.4-5.0) g/dL Globulin (2.6-4.0) g/dL Albumin/Globulin Ratio (0.9-1.6) 12/30/19 Range/Units 11:25 WBC (4.0-11.0) K/uL RBC (4.30-5.90) M/uL Hgb (12.0-16.0) g/dL Hct (36.0-46.0) % MCV (80.0-98.0) fL MCH (27.0-32.0) pg MCHC (31.0-37.0) g/dL RDW Std Deviation (28.0-62.0) fl RDW Coeff of Patrice (11.0-15.0) % Plt Count (150-400) K/uL MPV (7.40-12.00) fL Neut % (Auto) (48.0-80.0) % Lymph % (Auto) (16.0-40.0) % Major % (Auto) (0.0-15.0) % Eos % (Auto) (0.0-7.0) % Baso % (Auto) (0.0-1.5) % Neut # (Auto) (1.4-5.7) K/uL Lymph # (Auto) (0.6-2.4) K/uL Major # (Auto) (0.0-0.8) K/uL Eos # (Auto) (0.0-0.7) K/uL Baso # (Auto) (0.0-0.1) K/uL Nucleated RBC % /100WBC Nucleated RBCs # K/uL INR APTT (18.6-31.3) SEC D-Dimer, Quantitative (0.0-0.50) mg/L FEU Lactate (0.20-2.00) mmol/L Sodium 137 (136-145) mmol/L Potassium 3.9 (3.5-5.1) mmol/L Chloride 102 (98-107) mmol/L Carbon Dioxide 23.7 (21.0-32.0) mmol/L BUN 55 H (7.0-18.0) mg/dL Creatinine 4.1 H (0.6-1.0) mg/dL Est Cr Clr Drug Dosing 11.32 mL/min Estimated GFR (MDRD) 10.7 ml/min Glucose 69 L (74-106) mg/dL Calcium 8.0 L (8.5-10.1) mg/dL Magnesium 2.2 (1.8-2.4) mg/dL Total Bilirubin 0.5 (0.2-1.0) mg/dL AST 32 (15-37) IU/L ALT 19 (14-63) IU/L Alkaline Phosphatase 54 (46-116) U/L Troponin I < 0.050 (0.000-0.056) ng/mL C-Reactive Protein 19.80 H (0.00-0.90) mg/dL Total Protein 6.5 (6.4-8.2) g/dL Albumin 2.2 L (3.4-5.0) g/dL Globulin 4.3 H (2.6-4.0) g/dL Albumin/Globulin Ratio 0.5 L (0.9-1.6) Meds: Medications Generic Name Dose Route Start Last Admin Trade Name Freq PRN Reason Stop Dose Admin Sodium Chloride 10 ml 12/30/19 11:07 12/30/19 13:38 Saline Flush FLUSH 10 ml ASDIRECTED PRN Administration Keep Vein Open Sodium Chloride 2.5 ml 12/30/19 11:07 12/30/19 13:38 Saline Flush FLUSH 2.5 ml ASDIRECTED PRN Administration Keep Vein Open Discontinued Medications Generic Name Dose Route Start Last Admin Trade Name Freq PRN Reason Stop Dose Admin Acetaminophen 1,000 mg 12/30/19 11:07 12/30/19 11:14 Tylenol Extra Strength PO 12/30/19 11:08 1,000 mg ONETIME ONE Administration Dexamethasone 10 mg 12/30/19 12:03 12/30/19 13:38 Dexamethasone IVPUSH 12/30/19 12:04 10 mg ONETIME ONE Administration Enoxaparin Sodium 70 mg 12/30/19 13:39 12/30/19 13:46 Lovenox 1 mg/kg (70 mg) 12/30/19 13:40 70 mg SUBCUT Administration ONETIME ONE Sodium Chloride 1,000 mls @ 999 mls/hr 12/30/19 11:07 12/30/19 11:14 Normal Saline IV 12/30/19 12:07 999 mls/hr .Bolus ONE Administration Ketorolac Tromethamine 15 mg 12/30/19 11:07 12/30/19 11:15 Toradol IVPUSH 12/30/19 11:08 15 mg ONETIME ONE Administration - Re-Assessments/Exams Free Text/Narrative Re-Assessment/Exam: 12/30/19 11:22 We will get labs including chest x-ray, EKG. Will give IV fluid bolus for soft blood pressure. Patient is saturating well on room air, will avoid oxygen at this time. We will follow up results and disposition accordingly. 12/30/19 11:51 Patient was noted to have reduced oxygen saturations to 88% on room air. This is while she was at rest sitting on the stretcher. 3 L nasal cannula oxygen was applied with improvement of oxygen saturations to 94%. 12/30/19 11:56 Chest x-ray is remarkable for worsening bilateral infiltrates consistent with Covid pneumonia. 12/30/19 13:34 D-dimer is positive, will get CTA to rule out pulmonary embolism and to better assess degree of Covid pneumonia. 12/30/19 13:40 Patient cannot get CTA due to chronic kidney disease with creatinine of 4 at baseline. Will give Lovenox prophylactically now. Patient will need to be admitted. 12/30/19 13:52 Patient will be admitted for treatment of COVID-19 infection requiring O2 Departure - Departure Time of Disposition: 13:53 Disposition: Admitted As Inpatient 64 Condition: Good Clinical Impression: COVID-19 - Discharge Information Referrals: PCP,None [Primary Care Provider] - Sepsis Event Note (ED) - Focused Exam Vital Signs: Vital Signs Temp Pulse Resp BP Pulse Ox 12/30/19 13:49 75 17 120/69 97 12/30/19 11:05 96.6 F L 79 18 89/65 L 93 L - My Orders Last 24 Hours: My Active Orders 12/30/19 11:07 Cardiac Monitoring [RC] . DIRECTED EKG Documentation Completion [RC] STAT Pulse Oximetry [RC] ASDIRECTED Sodium Chloride 0.9% [Saline Flush] 10 ml FLUSH ASDIRECTED PRN Sodium Chloride 0.9% [Saline Flush] 2.5 ml FLUSH ASDIRECTED PRN Saline Lock Insert [OM.PC] Stat 12/30/19 11:25 B-TYPE NATRIURETIC PEPTIDE,BNP [CHEM] Stat - Assessment/Plan Last 24 Hours: My Active Orders 12/30/19 11:07 Cardiac Monitoring [RC] . DIRECTED EKG Documentation Completion [RC] STAT Pulse Oximetry [RC] ASDIRECTED Sodium Chloride 0.9% [Saline Flush] 10 ml FLUSH ASDIRECTED PRN Sodium Chloride 0.9% [Saline Flush] 2.5 ml FLUSH ASDIRECTED PRN Saline Lock Insert [OM.PC] Stat 12/30/19 11:25 B-TYPE NATRIURETIC PEPTIDE,BNP [CHEM] Stat
[2019-12-30] MEDS ORDERED: Acetaminophen 500 MG Tab PO ONE (11:07)
[2019-12-30] MEDS ORDERED: Sodium Chloride 0.9% 1,000 ML IV ONE (11:07)
[2019-12-30] MEDS ORDERED: Sodium Chloride 0.9% 2.5 ML Syringe FLUSH PRN (11:07)
[2019-12-30] MEDS ORDERED: Ketorolac 15 MG/ML SDV IVPUSH ONE (11:07)
[2019-12-30] MEDS ORDERED: Sodium Chloride 0.9% 10 ML Syringe FLUSH PRN (11:07)
--- NOTE | 2019-12-30 11:54 | CR ---
INDICATION: COVID COMPARISON: December 26, 2019 TECHNIQUE: Single-view chest radiograph was performed FINDINGS: TUBES AND LINES: None. HEART AND MEDIASTINUM: Heart size normal. Tortuous thoracic aorta.. LUNGS AND PLEURAL SPACES: Patchy bilateral airspace disease. This is primarily in the mid lungs and at the bases but also more so portion of the right upper lobe. The appearance has worsened when compared to December 26, 2019. No pleural effusion or pneumothorax OSSEOUS STRUCTURES: Age-appropriate appearance. No acute focal finding. IMPRESSION: Bilateral airspace disease worsened when compared to the prior study of December 26, 2019 Dictated by Vineet Trejo MD @ Dec 30 2019 11:51AM Signed by Dr. Vineet Trejo @ Dec 30 2019 11:53AM
[2019-12-30 11:59] LABS: BLOOD UREA NITROGEN,BUN 55 mg/dL (7.0-18.0); CARBON DIOXIDE,CO2 23.7 mmol/L (21.0-32.0); CHLORIDE,CL 102 mmol/L (98-107); GLUCOSE RANDOM 69 mg/dL (74-106); POTASSIUM,K 3.9 mmol/L (3.5-5.1); SODIUM,NA 137 mmol/L (136-145)
[2019-12-30] MEDS ORDERED: Dexamethasone 10 MG/ML SDV IVPUSH ONE (12:03)
[2019-12-30] MEDS ORDERED: Enoxaparin 100 MG/1 ML Syringe SUBCUT ONE (13:39)
[2019-12-30] MEDS ORDERED: Acetaminophen 325 MG Tab PO PRN (14:44)
[2019-12-30] MEDS ORDERED: Ondansetron 4 MG/2 ML SDV IVPUSH PRN (14:44)
--- NOTE | 2019-12-30 14:44 | PCM.HP.2 ---
H&P History of Present Illness - General Date of Service: 12/30/19 Admit Problem/Dx: Admission Diagnosis/Problem Admission Diagnosis/Problem Shortness of breath Source of Information: Patient History Limitations: Reports: No Limitations - History of Present Illness Initial Comments - Free Text/Narative: 69-year-old female presents complaining of worsening shortness of breath. Patient has a PMH of HTN, DM type II and CKD stage 5 with AV fistula placed for eventual dialysis. Patient reports testing positive for COVID-19 three days ago and her breathing got worse since then. She also reports a mild dry cough. She denies having any fevers, chills, sore throat, chest pain, nausea, vomiting, abdominal pain, diarrhea, blood in stool, blood in urine, numbness or tingling in extremities. In the ER, WBC count 13, 900, creatinine 4.1, D-dimer 6.4 and lactate was normal. COVID-19 test positive. CXR sowed b/l opacities in bases and RUL. CT chest angio could not be obtained secondary to CKD. Patient was given IV Toradol 15 mg x1, Tylenol 1 g x 1, dexamethasone 10 mg, 1 L IV NS bolus x 1 and lovenox 70 mg. Patient admitted for further evaluation and treatment. - Related Data Allergies/Adverse Reactions: Allergies Allergy/AdvReac Type Severity Reaction Status Date / Time glyburide Allergy Diarrhea Verified 12/30/19 11:08 latex Allergy Rash Verified 12/30/19 11:08 metformin Allergy Diarrhea Verified 12/30/19 11:08 Home Medications: Home Meds Aspirin [Halfprin] 81 mg PO DAILY 02/25/18 [History] Furosemide [Lasix] 40 mg PO DAILY 02/25/18 [History] Insulin Detemir [Levemir Flextouch] 15 units SUBCUT BEDTIME 02/25/18 [History] Insulin Detemir [Levemir Flextouch] 25 units SUBCUT QAM 02/25/18 [History] SitaGLIPtin [Januvia] 50 mg PO DAILY 02/25/18 [History] amLODIPine Besylate [Amlodipine Besylate] 5 mg PO BEDTIME 02/25/18 [History] glipiZIDE [Glucotrol XL] 5 mg PO BID 02/25/18 [History] Sodium Bicarbonate 650 mg PO TID 09/20/19 [History] Cinacalcet [Sensipar] 30 mg PO DAILY 12/30/19 [History] Fluticasone Propionate 2 sprays NASBOTH DAILY PRN 12/30/19 [History] Past Medical History HEENT History: Reports: Other (See Below) Other HEENT History: wears glasses, has removable dental bridge in front Cardiovascular History: Reports: Heart Murmur, Hypertension Other Cardiovascular History: has had heart murmur since her late 20's, recently checked before the AV shunt and was told she was "fine" Respiratory History: Reports: Other (See Below) Gastrointestinal History: Reports: Other (See Below) Other Gastrointestinal History: occasional heartburn- takes Tums Genitourinary History: Reports: Renal Disease Other Genitourinary History: CKD Stage 5- left wrist AV fistula 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: Musculoskeletal History: Reports: Arthritis, Other (See Below) Neurological History: Reports: Concussion Psychiatric History: Reports: None Endocrine/Metabolic History: Reports: Diabetes, Type II, IDDM Insulin Pump Model and Fuel Retrofitting Technician: None Hematologic History: Reports: Blood Transfusion(s) Immunologic History: Reports: None Oncologic (Cancer) History: Reports: None Dermatologic History: Reports: None - Infectious Disease History Infectious Disease History: Reports: None - Past Surgical History Head Surgeries/Procedures: Reports: None HEENT Surgical History: Reports: Tonsillectomy Cardiovascular Surgical History: Reports: Vascular Surgery Other Cardiovascular Surgeries/Procedures: Has AV fistula in left wrist GI Surgical History: Reports: Appendectomy Female Surgical History: Reports: Other (See Below) Other Female Surgeries/Procedures: Laparoscopic removal of Uterine fibroid Musculoskeletal Surgical History: Reports: Arthroscopic Knee Other Musculoskeletal Surgeries/Procedures:: Arthroscopy for torn ligament and removal of Bakers cyst right knee Social & Family History - Family History Family Medical History: Noncontributory - Tobacco Use Tobacco Use Status *Q: Never Tobacco User - Caffeine Use Caffeine Use: Reports: None - Recreational Drug Use Recreational Drug Use: No H&P Review of Systems - Review of Systems: Review Of Systems: Comprehensive ROS is negative, except as noted in HPI. Exam - Exam Exam: See Below - Vital Signs Vital Signs: Last Vital Signs Temp 35.9 C L 12/30/19 11:05 Pulse 75 12/30/19 13:49 Resp 17 12/30/19 13:49 BP 120/69 12/30/19 13:49 Pulse Ox 97 12/30/19 13:49 Weight: 68.039 kg - Exam General: Alert, Oriented, Cooperative, Other (NAD) HEENT: Conjunctiva Clear, EOMI, Hearing Intact, Pupils Equal, Pupils Reactive Neck: Supple, Trachea Midline Lungs: Normal Respiratory Effort, Other (diminished breath sounds in bases b/l) Cardiovascular: Regular Rate, Regular Rhythm GI/Abdominal Exam: Normal Bowel Sounds, Soft, Non-Tender, No Distention Extremities: Normal Inspection, No Pedal Edema Peripheral Pulses: 2+: Radial (L), Radial (R) Skin: Warm, Dry, Intact Neurological: Cranial Nerves Intact, Strength Equal Bilateral, Normal Speech, Normal Tone Neuro Extensive - Mental Status: Alert, Oriented x3, Normal Mood/Affect Psychiatric: Alert, Normal Affect, Normal Mood - Patient Data Lab Results Last 24 hrs: Laboratory Results - last 24 hr 12/30/19 12/30/19 12/30/19 Range/Units 11:25 11:25 11:25 WBC 13.96 H (4.0-11.0) K/uL RBC 4.09 L (4.30-5.90) M/uL Hgb 11.4 L (12.0-16.0) g/dL Hct 34.5 L (36.0-46.0) % MCV 84.4 (80.0-98.0) fL MCH 27.9 (27.0-32.0) pg MCHC 33.0 (31.0-37.0) g/dL RDW Std Deviation 44.7 (28.0-62.0) fl RDW Coeff of Patrice 14 (11.0-15.0) % Plt Count 211 (150-400) K/uL MPV 10.90 (7.40-12.00) fL Neut % (Auto) 88.4 H (48.0-80.0) % Lymph % (Auto) 6.5 L (16.0-40.0) % Frio % (Auto) 5.0 (0.0-15.0) % Eos % (Auto) 0.0 (0.0-7.0) % Baso % (Auto) 0.1 (0.0-1.5) % Neut # (Auto) 12.3 H (1.4-5.7) K/uL Lymph # (Auto) 0.9 (0.6-2.4) K/uL Frio # (Auto) 0.7 (0.0-0.8) K/uL Eos # (Auto) 0.0 (0.0-0.7) K/uL Baso # (Auto) 0.0 (0.0-0.1) K/uL Nucleated RBC % 0.0 /100WBC Nucleated RBCs # 0 K/uL INR 1.00 APTT 28.5 (18.6-31.3) SEC D-Dimer, Quantitative 6.40 H (0.0-0.50) mg/L FEU Lactate 0.8 (0.20-2.00) mmol/L Sodium (136-145) mmol/L Potassium (3.5-5.1) mmol/L Chloride (98-107) mmol/L Carbon Dioxide (21.0-32.0) mmol/L BUN (7.0-18.0) mg/dL Creatinine (0.6-1.0) mg/dL Est Cr Clr Drug Dosing mL/min Estimated GFR (MDRD) ml/min Glucose (74-106) mg/dL Calcium (8.5-10.1) mg/dL Magnesium (1.8-2.4) mg/dL Total Bilirubin (0.2-1.0) mg/dL AST (15-37) IU/L ALT (14-63) IU/L Alkaline Phosphatase (46-116) U/L Troponin I (0.000-0.056) ng/mL C-Reactive Protein (0.00-0.90) mg/dL Total Protein (6.4-8.2) g/dL Albumin (3.4-5.0) g/dL Globulin (2.6-4.0) g/dL Albumin/Globulin Ratio (0.9-1.6) 12/30/19 Range/Units 11:25 WBC (4.0-11.0) K/uL RBC (4.30-5.90) M/uL Hgb (12.0-16.0) g/dL Hct (36.0-46.0) % MCV (80.0-98.0) fL MCH (27.0-32.0) pg MCHC (31.0-37.0) g/dL RDW Std Deviation (28.0-62.0) fl RDW Coeff of Patrice (11.0-15.0) % Plt Count (150-400) K/uL MPV (7.40-12.00) fL Neut % (Auto) (48.0-80.0) % Lymph % (Auto) (16.0-40.0) % Frio % (Auto) (0.0-15.0) % Eos % (Auto) (0.0-7.0) % Baso % (Auto) (0.0-1.5) % Neut # (Auto) (1.4-5.7) K/uL Lymph # (Auto) (0.6-2.4) K/uL Frio # (Auto) (0.0-0.8) K/uL Eos # (Auto) (0.0-0.7) K/uL Baso # (Auto) (0.0-0.1) K/uL Nucleated RBC % /100WBC Nucleated RBCs # K/uL INR APTT (18.6-31.3) SEC D-Dimer, Quantitative (0.0-0.50) mg/L FEU Lactate (0.20-2.00) mmol/L Sodium 137 (136-145) mmol/L Potassium 3.9 (3.5-5.1) mmol/L Chloride 102 (98-107) mmol/L Carbon Dioxide 23.7 (21.0-32.0) mmol/L BUN 55 H (7.0-18.0) mg/dL Creatinine 4.1 H (0.6-1.0) mg/dL Est Cr Clr Drug Dosing 11.32 mL/min Estimated GFR (MDRD) 10.7 ml/min Glucose 69 L (74-106) mg/dL Calcium 8.0 L (8.5-10.1) mg/dL Magnesium 2.2 (1.8-2.4) mg/dL Total Bilirubin 0.5 (0.2-1.0) mg/dL AST 32 (15-37) IU/L ALT 19 (14-63) IU/L Alkaline Phosphatase 54 (46-116) U/L Troponin I < 0.050 (0.000-0.056) ng/mL C-Reactive Protein 19.80 H (0.00-0.90) mg/dL Total Protein 6.5 (6.4-8.2) g/dL Albumin 2.2 L (3.4-5.0) g/dL Globulin 4.3 H (2.6-4.0) g/dL Albumin/Globulin Ratio 0.5 L (0.9-1.6) Result Diagrams: 12/30/19 11:25 12/30/19 11:25 Sepsis Event Note - Evaluation Sepsis Screening Result: No Definite Risk - Focused Exam Vital Signs: Vital Signs Temp Pulse Resp BP Pulse Ox 12/30/19 13:49 75 17 120/69 97 12/30/19 11:05 35.9 C L 79 18 89/65 L 93 L - Problem List (1) COVID-19 SNOMED Code(s): 537212690 ICD Code: U07.1 - COVID-19 Status: Acute Current Visit: Yes (2) Chronic kidney disease SNOMED Code(s): 141616154 ICD Code: N18.9 - CHRONIC KIDNEY DISEASE, UNSPECIFIED Status: Acute Current Visit: No Qualifiers: Chronic kidney disease stage: stage 4 (severe) Qualified Code(s): N18.4 - Chronic kidney disease, stage 4 (severe) (3) Hypertension SNOMED Code(s): 73255788 ICD Code: I10 - ESSENTIAL (PRIMARY) HYPERTENSION Status: Acute Current Visit: No (4) Type 2 diabetes mellitus SNOMED Code(s): 89893795 ICD Code: E11.9 - TYPE 2 DIABETES MELLITUS WITHOUT COMPLICATIONS Status: Acute Current Visit: No Qualifiers: Diabetes mellitus halfway insulin use: without intermediate designer use Diabetes mellitus complication status: with unspecified complications Problem List Initiated/Reviewed/Updated: Yes Orders Last 24hrs: Active Orders 24 hr Category Date Time Status Patient Status [ADT] Routine ADT 12/30/19 13:56 Active Cardiac Monitoring [RC] . DIRECTED Care 12/30/19 11:07 Active EKG Documentation Completion [RC] STAT Care 12/30/19 11:07 Active Pulse Oximetry [RC] ASDIRECTED Care 12/30/19 11:07 Active B-TYPE NATRIURETIC PEPTIDE,BNP [CHEM] Stat Lab 12/30/19 11:25 Received Sodium Chloride 0.9% [Saline Flush] Med 12/30/19 11:07 Active 10 ml FLUSH ASDIRECTED PRN Sodium Chloride 0.9% [Saline Flush] Med 12/30/19 11:07 Active 2.5 ml FLUSH ASDIRECTED PRN Saline Lock Insert [OM.PC] Stat Oth 12/30/19 11:07 Ordered Medication Orders Sodium Chloride (Saline Flush) 10 ml FLUSH ASDIRECTED PRN PRN Reason: Keep Vein Open Last Admin: 12/30/19 13:38 Dose: 10 ml Documented by: SONJA Sodium Chloride (Saline Flush) 2.5 ml FLUSH ASDIRECTED PRN PRN Reason: Keep Vein Open Last Admin: 12/30/19 13:38 Dose: 2.5 ml Documented by: SONJA Assessment/Plan Comment:: Assessment and Plan: 1. Acute hypoxic respiratory failure secondary to COVID19: - Admit to med/surg. Will treat with supplemental oxygen PRN to maintain O2 sat > 92%, Combivent q6 ROBIN, dexamethasone 6 mg qd, PPI and Remdesivir. - Patient given fact sheet for convalescent plasma EAU and risks were explained. Patient consents to treatment if need be. - CXR showed bilateral opacities in lung bases and RUL. 2. Elevated D-dimer: - Will order V/Q scan to evaluate for PE as CT angio cannot be done secondary to her CKD stage 5. 3. Acute on chronic kidney injury: - Patient received 1 L IV NS bolus in ER. Will continue to monitor. - CKD stage 5. Patient has AV fistula in left wrist for eventual dialysis. 4. Diabetes mellitus type 2: - ADA diet, resume long-acting home insulin regimen and start Novolog SSI with accuchecks TIDAC. 5. DVT prophylaxis: - Lovenox. 6. Past medical history of HTN: - Continue home medications.
[2019-12-30] MEDS ORDERED: 50% Dextrose in Water 50 ML Syringe IV PRN (14:46)
[2019-12-30] MEDS ORDERED: Glucagon,Human Recombinant 1 MG Vial IM PRN (14:46)
[2019-12-30] MEDS ORDERED: REMDESIVIR 200 MG in Sodium Chloride 0.9% 250 ML IV ONE (14:48)
[2019-12-30] MEDS ORDERED: Albuterol/Ipratropium 4 GM Inhalation Spray INH SCH (15:00)
[2019-12-30] MEDS: Pantoprazole 40 MG in Sodium Chloride 0.9% 10 ML IV SCH (15:28)
[2019-12-30] MEDS: Albuterol/Ipratropium 4 GM Inhalation Spray INH SCH ×2 (17:17→23:50)
[2019-12-30] MEDS: Insulin Aspart 100 Units/ML 3 ML Pen SUBCUT SCH (20:41)
[2019-12-30] MEDS: amLODIPine 5 MG Tab PO SCH (21:48)
[2019-12-30] MEDS: Sodium Bicarbonate 650 MG Tab PO SCH (21:49)
[2019-12-30] MEDS: Insulin Detemir 100 Units/ML 3 ML Pen SUBCUT SCH (21:49)
[2019-12-31] MEDS: Albuterol/Ipratropium 4 GM Inhalation Spray INH SCH ×3 (05:48→17:50)
[2019-12-31 05:55] LABS: CARBON DIOXIDE,CO2 20.8 mmol/L (21.0-32.0); POTASSIUM,K 4.4 mmol/L (3.5-5.1)
[2019-12-31] MEDS: Sodium Bicarbonate 650 MG Tab PO SCH ×3 (06:20→22:02)
[2019-12-31] MEDS: Insulin Aspart 100 Units/ML 3 ML Pen SUBCUT SCH ×3 (07:02→18:35)
[2019-12-31] MEDS: Pantoprazole 40 MG in Sodium Chloride 0.9% 10 ML IV SCH (08:18)
[2019-12-31] MEDS: CINACALCET 30 MG PO SCH (08:20)
[2019-12-31] MEDS: Aspirin 81 MG Tab.EC PO SCH (08:20)
[2019-12-31] MEDS: Dexamethasone 4 MG Tab PO SCH (08:20)
[2019-12-31] MEDS: Furosemide 40 MG Tab PO SCH (08:21)
[2019-12-31] MEDS: Insulin Detemir 100 Units/ML 3 ML Pen SUBCUT SCH ×2 (08:22→21:01)
--- NOTE | 2019-12-31 08:34 | PCM.PN ---
- General Info Date of Service: 12/31/19 Subjective Update: Reports SOB and cough has improved since yesterday. Tolerating oral diet and urinating. No fevers or chills overnight. - Patient Data Vitals - Most Recent: Last Vital Signs Temp 36.1 C 12/31/19 06:11 Pulse 71 12/31/19 06:11 Resp 17 12/31/19 06:11 BP 142/72 H 12/31/19 06:11 Pulse Ox 96 12/31/19 08:18 Weight - Most Recent: 66.587 kg I&O - Last 24 Hours: Intake & Output 12/30/19 12/31/19 12/31/19 22:59 06:59 14:59 Intake Total 950 Output Total 800 Balance 150 Lab Results Last 24 Hours: Laboratory Results - last 24 hr 12/30/19 12/30/19 12/30/19 Range/Units 11:25 11:25 11:25 WBC 13.96 H (4.0-11.0) K/uL RBC 4.09 L (4.30-5.90) M/uL Hgb 11.4 L (12.0-16.0) g/dL Hct 34.5 L (36.0-46.0) % MCV 84.4 (80.0-98.0) fL MCH 27.9 (27.0-32.0) pg MCHC 33.0 (31.0-37.0) g/dL RDW Std Deviation 44.7 (28.0-62.0) fl RDW Coeff of Patrice 14 (11.0-15.0) % Plt Count 211 (150-400) K/uL MPV 10.90 (7.40-12.00) fL Neut % (Auto) 88.4 H (48.0-80.0) % Lymph % (Auto) 6.5 L (16.0-40.0) % [place] % (Auto) 5.0 (0.0-15.0) % Eos % (Auto) 0.0 (0.0-7.0) % Baso % (Auto) 0.1 (0.0-1.5) % Neut # (Auto) 12.3 H (1.4-5.7) K/uL Lymph # (Auto) 0.9 (0.6-2.4) K/uL [place] # (Auto) 0.7 (0.0-0.8) K/uL Eos # (Auto) 0.0 (0.0-0.7) K/uL Baso # (Auto) 0.0 (0.0-0.1) K/uL Nucleated RBC % 0.0 /100WBC Nucleated RBCs # 0 K/uL INR 1.00 APTT 28.5 (18.6-31.3) SEC D-Dimer, Quantitative 6.40 H (0.0-0.50) mg/L FEU Lactate 0.8 (0.20-2.00) mmol/L Sodium (136-145) mmol/L Potassium (3.5-5.1) mmol/L Chloride (98-107) mmol/L Carbon Dioxide (21.0-32.0) mmol/L BUN (7.0-18.0) mg/dL Creatinine (0.6-1.0) mg/dL Est Cr Clr Drug Dosing mL/min Estimated GFR (MDRD) ml/min Glucose (74-106) mg/dL POC Glucose (60-110) mg/dL Calcium (8.5-10.1) mg/dL Magnesium (1.8-2.4) mg/dL Total Bilirubin (0.2-1.0) mg/dL AST (15-37) IU/L ALT (14-63) IU/L Alkaline Phosphatase (46-116) U/L Troponin I (0.000-0.056) ng/mL C-Reactive Protein (0.00-0.90) mg/dL B-Natriuretic Peptide (<100) PG/ML Total Protein (6.4-8.2) g/dL Albumin (3.4-5.0) g/dL Globulin (2.6-4.0) g/dL Albumin/Globulin Ratio (0.9-1.6) Urine Color Urine Appearance Urine pH (5.0-8.0) Ur Specific [place] (1.001-1.035) Urine Protein (NEGATIVE) mg/dL Urine Glucose (UA) (NEGATIVE) mg/dL Urine Ketones (NEGATIVE) mg/dL Urine Occult Blood (NEGATIVE) Urine Nitrite (NEGATIVE) Urine Bilirubin (NEGATIVE) Urine Urobilinogen (<2.0) EU/dL Ur Leukocyte Esterase (NEGATIVE) Urine RBC (0-2/HPF) Urine WBC (0-5/HPF) Ur Epithelial Cells (NONE-FEW) Urine Bacteria (NEGATIVE) Urine Mucus (NONE-MOD) Blood Type Antibody Screen 12/30/19 12/30/19 12/30/19 Range/Units 11:25 11:25 16:35 WBC (4.0-11.0) K/uL RBC (4.30-5.90) M/uL Hgb (12.0-16.0) g/dL Hct (36.0-46.0) % MCV (80.0-98.0) fL MCH (27.0-32.0) pg MCHC (31.0-37.0) g/dL RDW Std Deviation (28.0-62.0) fl RDW Coeff of Patrice (11.0-15.0) % Plt Count (150-400) K/uL MPV (7.40-12.00) fL Neut % (Auto) (48.0-80.0) % Lymph % (Auto) (16.0-40.0) % [place] % (Auto) (0.0-15.0) % Eos % (Auto) (0.0-7.0) % Baso % (Auto) (0.0-1.5) % Neut # (Auto) (1.4-5.7) K/uL Lymph # (Auto) (0.6-2.4) K/uL [place] # (Auto) (0.0-0.8) K/uL Eos # (Auto) (0.0-0.7) K/uL Baso # (Auto) (0.0-0.1) K/uL Nucleated RBC % /100WBC Nucleated RBCs # K/uL INR APTT (18.6-31.3) SEC D-Dimer, Quantitative (0.0-0.50) mg/L FEU Lactate (0.20-2.00) mmol/L Sodium 137 (136-145) mmol/L Potassium 3.9 (3.5-5.1) mmol/L Chloride 102 (98-107) mmol/L Carbon Dioxide 23.7 (21.0-32.0) mmol/L BUN 55 H (7.0-18.0) mg/dL Creatinine 4.1 H (0.6-1.0) mg/dL Est Cr Clr Drug Dosing 11.32 mL/min Estimated GFR (MDRD) 10.7 ml/min Glucose 69 L (74-106) mg/dL POC Glucose (60-110) mg/dL Calcium 8.0 L (8.5-10.1) mg/dL Magnesium 2.2 (1.8-2.4) mg/dL Total Bilirubin 0.5 (0.2-1.0) mg/dL AST 32 (15-37) IU/L ALT 19 (14-63) IU/L Alkaline Phosphatase 54 (46-116) U/L Troponin I < 0.050 (0.000-0.056) ng/mL C-Reactive Protein 19.80 H (0.00-0.90) mg/dL B-Natriuretic Peptide 34 (<100) PG/ML Total Protein 6.5 (6.4-8.2) g/dL Albumin 2.2 L (3.4-5.0) g/dL Globulin 4.3 H (2.6-4.0) g/dL Albumin/Globulin Ratio 0.5 L (0.9-1.6) Urine Color Urine Appearance Urine pH (5.0-8.0) Ur Specific [place] (1.001-1.035) Urine Protein (NEGATIVE) mg/dL Urine Glucose (UA) (NEGATIVE) mg/dL Urine Ketones (NEGATIVE) mg/dL Urine Occult Blood (NEGATIVE) Urine Nitrite (NEGATIVE) Urine Bilirubin (NEGATIVE) Urine Urobilinogen (<2.0) EU/dL Ur Leukocyte Esterase (NEGATIVE) Urine RBC (0-2/HPF) Urine WBC (0-5/HPF) Ur Epithelial Cells (NONE-FEW) Urine Bacteria (NEGATIVE) Urine Mucus (NONE-MOD) Blood Type O POSITIVE Antibody Screen NEGATIVE 12/30/19 12/30/19 12/30/19 Range/Units 19:39 21:47 23:50 WBC (4.0-11.0) K/uL RBC (4.30-5.90) M/uL Hgb (12.0-16.0) g/dL Hct (36.0-46.0) % MCV (80.0-98.0) fL MCH (27.0-32.0) pg MCHC (31.0-37.0) g/dL RDW Std Deviation (28.0-62.0) fl RDW Coeff of Patrice (11.0-15.0) % Plt Count (150-400) K/uL MPV (7.40-12.00) fL Neut % (Auto) (48.0-80.0) % Lymph % (Auto) (16.0-40.0) % [place] % (Auto) (0.0-15.0) % Eos % (Auto) (0.0-7.0) % Baso % (Auto) (0.0-1.5) % Neut # (Auto) (1.4-5.7) K/uL Lymph # (Auto) (0.6-2.4) K/uL [place] # (Auto) (0.0-0.8) K/uL Eos # (Auto) (0.0-0.7) K/uL Baso # (Auto) (0.0-0.1) K/uL Nucleated RBC % /100WBC Nucleated RBCs # K/uL INR APTT (18.6-31.3) SEC D-Dimer, Quantitative (0.0-0.50) mg/L FEU Lactate (0.20-2.00) mmol/L Sodium (136-145) mmol/L Potassium (3.5-5.1) mmol/L Chloride (98-107) mmol/L Carbon Dioxide (21.0-32.0) mmol/L BUN (7.0-18.0) mg/dL Creatinine (0.6-1.0) mg/dL Est Cr Clr Drug Dosing mL/min Estimated GFR (MDRD) ml/min Glucose (74-106) mg/dL POC Glucose 170 H 323 H (60-110) mg/dL Calcium (8.5-10.1) mg/dL Magnesium (1.8-2.4) mg/dL Total Bilirubin (0.2-1.0) mg/dL AST (15-37) IU/L ALT (14-63) IU/L Alkaline Phosphatase (46-116) U/L Troponin I (0.000-0.056) ng/mL C-Reactive Protein (0.00-0.90) mg/dL B-Natriuretic Peptide (<100) PG/ML Total Protein (6.4-8.2) g/dL Albumin (3.4-5.0) g/dL Globulin (2.6-4.0) g/dL Albumin/Globulin Ratio (0.9-1.6) Urine Color YELLOW Urine Appearance CLEAR Urine pH 7.0 (5.0-8.0) Ur Specific [place] 1.025 (1.001-1.035) Urine Protein 100 H (NEGATIVE) mg/dL Urine Glucose (UA) >=1000 (NEGATIVE) mg/dL Urine Ketones NEGATIVE (NEGATIVE) mg/dL Urine Occult Blood SMALL H (NEGATIVE) Urine Nitrite NEGATIVE (NEGATIVE) Urine Bilirubin NEGATIVE (NEGATIVE) Urine Urobilinogen 0.2 (<2.0) EU/dL Ur Leukocyte Esterase NEGATIVE (NEGATIVE) Urine RBC 1-3 (0-2/HPF) Urine WBC 0-2 (0-5/HPF) Ur Epithelial Cells FEW (NONE-FEW) Urine Bacteria FEW (NEGATIVE) Urine Mucus LIGHT (NONE-MOD) Blood Type Antibody Screen 12/31/19 12/31/19 12/31/19 Range/Units 05:25 05:25 06:56 WBC 7.86 (4.0-11.0) K/uL RBC 3.82 L (4.30-5.90) M/uL Hgb 10.5 L (12.0-16.0) g/dL Hct 32.4 L (36.0-46.0) % MCV 84.8 (80.0-98.0) fL MCH 27.5 (27.0-32.0) pg MCHC 32.4 (31.0-37.0) g/dL RDW Std Deviation 43.7 (28.0-62.0) fl RDW Coeff of Patrice 14 (11.0-15.0) % Plt Count 196 (150-400) K/uL MPV 10.40 (7.40-12.00) fL Neut % (Auto) 87.8 H (48.0-80.0) % Lymph % (Auto) 8.0 L (16.0-40.0) % [place] % (Auto) 4.1 (0.0-15.0) % Eos % (Auto) 0.0 (0.0-7.0) % Baso % (Auto) 0.1 (0.0-1.5) % Neut # (Auto) 6.9 H (1.4-5.7) K/uL Lymph # (Auto) 0.6 (0.6-2.4) K/uL [place] # (Auto) 0.3 (0.0-0.8) K/uL Eos # (Auto) 0.0 (0.0-0.7) K/uL Baso # (Auto) 0.0 (0.0-0.1) K/uL Nucleated RBC % 0.0 /100WBC Nucleated RBCs # 0 K/uL INR APTT (18.6-31.3) SEC D-Dimer, Quantitative (0.0-0.50) mg/L FEU Lactate (0.20-2.00) mmol/L Sodium 139 (136-145) mmol/L Potassium 4.4 (3.5-5.1) mmol/L Chloride 106 (98-107) mmol/L Carbon Dioxide 20.8 L (21.0-32.0) mmol/L BUN 58 H (7.0-18.0) mg/dL Creatinine 3.9 H (0.6-1.0) mg/dL Est Cr Clr Drug Dosing 11.91 mL/min Estimated GFR (MDRD) 11.4 ml/min Glucose 286 H (74-106) mg/dL POC Glucose 219 H (60-110) mg/dL Calcium 8.2 L (8.5-10.1) mg/dL Magnesium (1.8-2.4) mg/dL Total Bilirubin 0.3 (0.2-1.0) mg/dL AST 25 (15-37) IU/L ALT 18 (14-63) IU/L Alkaline Phosphatase 53 (46-116) U/L Troponin I (0.000-0.056) ng/mL C-Reactive Protein (0.00-0.90) mg/dL B-Natriuretic Peptide (<100) PG/ML Total Protein 5.8 L (6.4-8.2) g/dL Albumin 2.0 L (3.4-5.0) g/dL Globulin 3.8 (2.6-4.0) g/dL Albumin/Globulin Ratio 0.5 L (0.9-1.6) Urine Color Urine Appearance Urine pH (5.0-8.0) Ur Specific [place] (1.001-1.035) Urine Protein (NEGATIVE) mg/dL Urine Glucose (UA) (NEGATIVE) mg/dL Urine Ketones (NEGATIVE) mg/dL Urine Occult Blood (NEGATIVE) Urine Nitrite (NEGATIVE) Urine Bilirubin (NEGATIVE) Urine Urobilinogen (<2.0) EU/dL Ur Leukocyte Esterase (NEGATIVE) Urine RBC (0-2/HPF) Urine WBC (0-5/HPF) Ur Epithelial Cells (NONE-FEW) Urine Bacteria (NEGATIVE) Urine Mucus (NONE-MOD) Blood Type Antibody Screen Med Orders - Current: Current Medications Acetaminophen (Tylenol) 650 mg PO Q4H PRN PRN Reason: Pain (Mild 1-3)/fever Last Admin: 12/30/19 23:39 Dose: 650 mg Documented by: Albuterol/Ipratropium (Combivent Respimat) 0 gm INH Q6H [facility] Last Admin: 12/31/19 05:48 Dose: 1 puff Documented by: Amlodipine Besylate (Norvasc) 5 mg PO BEDTIME [facility] Last Admin: 12/30/19 21:48 Dose: 5 mg Documented by: Aspirin (Halfprin) 81 mg PO DAILY [facility] Last Admin: 12/31/19 08:20 Dose: 81 mg Documented by: Dexamethasone (Dexamethasone) 6 mg PO DAILY [facility] Last Admin: 12/31/19 08:20 Dose: 6 mg Documented by: Dextrose/Water (Dextrose 50% In Water) 50 ml IV ASDIRECTED PRN PRN Reason: Hypoglycemia Furosemide (Lasix) 40 mg PO DAILY [facility] Last Admin: 12/31/19 08:21 Dose: 40 mg Documented by: Glucagon (Glucagen) 1 mg IM ASDIRECTED PRN PRN Reason: Hypoglycemia Pantoprazole Sodium 40 mg/ (Sodium Chloride) 10 mls @ 300 mls/hr IV DAILY [facility] Last Admin: 12/31/19 08:18 Dose: 300 mls/hr Documented by: Remdesivir 100 mg/ Sodium (Chloride) 100 mls @ 100 mls/hr IV Q24H [facility] Stop: 01/03/20 15:59 Insulin Aspart (Novolog) 0 unit SUBCUT TIDAC [facility]; Protocol Last Admin: 12/31/19 07:02 Dose: 2 units Documented by: Insulin Detemir (Levemir) 15 unit SUBCUT BEDTIME [facility] Last Admin: 12/30/19 21:49 Dose: 15 units Documented by: Insulin Detemir (Levemir) 25 unit SUBCUT QAM [facility] Last Admin: 12/31/19 08:22 Dose: 25 units Documented by: Ondansetron HCl (Zofran) 4 mg IVPUSH Q4H PRN PRN Reason: Nausea Cinacalcet 30 Mg 1 each PO DAILY [facility] Sodium Bicarbonate (Sodium Bicarbonate) 650 mg PO TID [facility] Last Admin: 12/31/19 06:20 Dose: 650 mg Documented by: Sodium Chloride (Saline Flush) 10 ml FLUSH ASDIRECTED PRN PRN Reason: Keep Vein Open Last Admin: 12/30/19 13:38 Dose: 10 ml Documented by: Sodium Chloride (Saline Flush) 2.5 ml FLUSH ASDIRECTED PRN PRN Reason: Keep Vein Open Last Admin: 12/30/19 13:38 Dose: 2.5 ml Documented by: Discontinued Medications Acetaminophen (Tylenol Extra Strength) 1,000 mg PO ONETIME ONE Stop: 12/30/19 11:08 Last Admin: 12/30/19 11:14 Dose: 1,000 mg Documented by: Albuterol/Ipratropium (Combivent Respimat) 0 gm INH Q6H [facility] Last Admin: 12/30/19 20:15 Dose: Not Given Documented by: Dexamethasone (Dexamethasone) 10 mg IVPUSH ONETIME ONE Stop: 12/30/19 12:04 Last Admin: 12/30/19 13:38 Dose: 10 mg Documented by: Enoxaparin Sodium (Lovenox) 70 mg 1 mg/kg (70 mg) SUBCUT ONETIME ONE Stop: 12/30/19 13:40 Last Admin: 12/30/19 13:46 Dose: 70 mg Documented by: Sodium Chloride (Normal Saline) 1,000 mls @ 999 mls/hr IV .Bolus ONE Stop: 12/30/19 12:07 Last Admin: 12/30/19 11:14 Dose: 999 mls/hr Documented by: Remdesivir 200 mg/ Sodium (Chloride) 250 mls @ 250 mls/hr IV ONETIME ONE Stop: 12/30/19 14:49 Last Admin: 12/30/19 15:24 Dose: 250 mls/hr Documented by: Ketorolac Tromethamine (Toradol) 15 mg IVPUSH ONETIME ONE Stop: 12/30/19 11:08 Last Admin: 12/30/19 11:15 Dose: 15 mg Documented by: - Exam General: Alert, Oriented, Cooperative, No Acute Distress Lungs: Normal Respiratory Effort, Other (decreased breath sounds in bases b/l) Cardiovascular: Regular Rate, Regular Rhythm GI/Abdominal Exam: Normal Bowel Sounds, Soft, Non-Tender, No Distention Extremities: Normal Inspection, No Pedal Edema Sepsis Event Note - Evaluation Sepsis Screening Result: No Definite Risk - Focused Exam Vital Signs: Vital Signs Temp Pulse Resp BP BP Pulse Ox 12/31/19 08:18 96 12/31/19 06:11 36.1 C 71 17 142/72 H 95 12/31/19 04:12 36.1 C 75 18 132/75 94 L 12/30/19 23:43 36.1 C 73 18 130/73 94 L 12/30/19 21:48 148/75 H 12/30/19 21:25 36.3 C 89 19 148/75 H 95 - Problem List & Annotations (1) COVID-19 SNOMED Code(s): 861371342 Code(s): U07.1 - COVID-19 Status: Acute Current Visit: Yes (2) Chronic kidney disease SNOMED Code(s): 777988290 Code(s): N18.9 - CHRONIC KIDNEY DISEASE, UNSPECIFIED Status: Acute Current Visit: No Qualifiers: Chronic kidney disease stage: stage 4 (severe) Qualified Code(s): N18.4 - Chronic kidney disease, stage 4 (severe) (3) Hypertension SNOMED Code(s): 11084487 Code(s): I10 - ESSENTIAL (PRIMARY) HYPERTENSION Status: Acute Current Visit: No (4) Type 2 diabetes mellitus SNOMED Code(s): 61406012 Code(s): E11.9 - TYPE 2 DIABETES MELLITUS WITHOUT COMPLICATIONS Status: Acute Current Visit: No Qualifiers: Diabetes mellitus retirement insulin use: without retirement use Diabetes mellitus complication status: with unspecified complications - Problem List Review Problem List Initiated/Reviewed/Updated: Yes - My Orders Last 24 Hours: My Active Orders 12/30/19 Lunch [employer] Diet [DIET] 12/30/19 14:44 Oxygen Therapy [RC] PRN Up ad Irais [RC] ASDIRECTED VTE/DVT Education [RC] PER UNIT ROUTINE Vital Signs [RC] Q4H Acetaminophen [TylenoL] 650 mg PO Q4H PRN Ondansetron [Zofran] 4 mg IVPUSH Q4H PRN Sequential Compression Device [OM.PC] Per Unit Routine Resuscitation Status Routine 12/30/19 14:45 Antiembolic Devices [RC] PER UNIT ROUTINE 12/30/19 14:46 Accu Check [Blood Glucose Check, Bedside] [RC] TIDAC Dextrose 50% in Water 50 ml IV ASDIRECTED PRN Glucagon,Human Recombinant [GlucaGen] 1 mg IM ASDIRECTED PRN 12/30/19 14:48 RT Post Treatment Assessment [RC] Click to Edit RT Pre-Treatment Assessment [RC] Click to Edit 12/30/19 14:51 Lung Vent & Perf Quantative [NM] Urgent 12/30/19 15:00 Pantoprazole [ProTONIX IV] 40 mg Sodium Chloride 0.9% [Normal Saline] 10 ml IV DAILY 12/30/19 16:35 FRESH FROZEN PLASMA [BBK] Routine TYPE AND SCREEN [BBK] Routine 12/30/19 17:00 Insulin Aspart [NovoLOG] See Protocol SUBCUT TIDAC 12/30/19 18:00 Albuterol/Ipratropium [Combivent Respimat] 0 gm INH Q6H 12/30/19 21:00 Insulin Detemir [Levemir] 15 unit SUBCUT BEDTIME amLODIPine [Norvasc] 5 mg PO BEDTIME 12/30/19 22:00 Sodium Bicarbonate 650 mg PO TID 12/31/19 09:00 Aspirin [Halfprin] 81 mg PO DAILY Furosemide [Lasix] 40 mg PO DAILY Insulin Detemir [Levemir] 25 unit SUBCUT QAM Patient's Own Medication [Ptom] 1 each PO DAILY dexAMETHasone 6 mg PO DAILY 12/31/19 15:00 Remdesivir (Eua) [Remdesivir (EUA)] 100 mg Sodium Chloride 0.9% [Normal Saline] 100 ml IV Q24H - Plan Plan:: Assessment and Plan: 1. Acute hypoxic respiratory failure secondary to COVID19: - Continue supplemental oxygen PRN to maintain O2 sat > 92%, Combivent q6 ROBIN, dexamethasone 6 mg qd, PPI and Remdesivir. - Patient given fact sheet for convalescent plasma EAU and risks were explained. Patient consents to treatment if need be. - CXR showed bilateral opacities in lung bases and RUL. 2. Elevated D-dimer: - V/Q scan ordered and will contact radiology to see if this study can be preformed or not secondary to patient being COVID19 positive. [address] angio cannot be done secondary to her CKD stage 5. Will treat for PE for now with renal-dosing of lovenox 70 mg qd. Also ordered b/l lower extremity Doppler ultrasound. 3. Acute on chronic kidney injury, improving: - CKD stage 5. Patient has AV fistula in left wrist for eventual dialysis. 4. Diabetes mellitus type 2: - ADA diet, resume long-acting home insulin regimen and start Novolog SSI with accuchecks TIDAC. 5. DVT prophylaxis: - Lovenox. 6. Past medical history of HTN: - Continue home medications.
--- NOTE | 2019-12-31 12:30 | US ---
INDICATION: Leg pain and swelling. TECHNIQUE: Ultrasound venous duplex lower extremity bilateral. Compression venous exam was performed using daily-scale, color Doppler, and spectral Doppler imaging. COMPARISON: None. FINDINGS: Sonographic imaging demonstrates the common femoral, deep femoral, superficial femoral, popliteal, posterior tibial and greater saphenous veins to be fully compressible with normal color Doppler blood flow in both lower extremities. IMPRESSION: Normal bilateral lower extremity venous ultrasound, no sign of deep venous thrombosis. Dictated by Kenney Mckenna MD @ Dec 31 2019 12:24PM Signed by Dr. Kenney Mckenna @ Dec 31 2019 12:29PM
[2019-12-31] MEDS ORDERED: Enoxaparin 100 MG/1 ML Syringe SUBCUT SCH (13:30)
[2019-12-31] MEDS ORDERED: REMDESIVIR 100 MG in Sodium Chloride 0.9% 100 ML IV SCH (15:00)
[2019-12-31] MEDS: amLODIPine 5 MG Tab PO SCH (20:57)
[2020-01-01] MEDS: Albuterol/Ipratropium 4 GM Inhalation Spray INH SCH ×3 (00:13→11:15)
[2020-01-01] MEDS: Sodium Bicarbonate 650 MG Tab PO SCH (06:09)
[2020-01-01 06:54] LABS: CARBON DIOXIDE,CO2 22.2 mmol/L (21.0-32.0); POTASSIUM,K 4.4 mmol/L (3.5-5.1)
--- NOTE | 2020-01-01 08:37 | PCM.PN ---
- General Info Date of Service: 01/01/20 Subjective Update: Reports shortness of breath and cough has improved. Tolerating oral diet. Denies any fevers, chills, nausea or vomiting. - Patient Data Vitals - Most Recent: Last Vital Signs Temp 36.6 C 01/01/20 04:13 Pulse 75 01/01/20 04:13 Resp 14 01/01/20 04:13 BP 120/76 01/01/20 04:13 Pulse Ox 95 01/01/20 04:13 Weight - Most Recent: 66.587 kg I&O - Last 24 Hours: Intake & Output 12/31/19 01/01/20 01/01/20 22:59 06:59 14:59 Intake Total 1100 1100 Output Total 2300 1300 Balance -1200 -200 Lab Results Last 24 Hours: Laboratory Results - last 24 hr 12/31/19 12/31/19 12/31/19 Range/Units 12:27 18:33 21:00 WBC (4.0-11.0) K/uL RBC (4.30-5.90) M/uL Hgb (12.0-16.0) g/dL Hct (36.0-46.0) % MCV (80.0-98.0) fL MCH (27.0-32.0) pg MCHC (31.0-37.0) g/dL RDW Std Deviation (28.0-62.0) fl RDW Coeff of Patrice (11.0-15.0) % Plt Count (150-400) K/uL MPV (7.40-12.00) fL Add Manual Diff Neutrophils % (Manual) (48.0-80.0) % Band Neutrophils % % Lymphocytes % (Manual) (16.0-40.0) % Monocytes % (Manual) (0.0-15.0) % Metamyelocytes % % Nucleated RBC % /100WBC Absolute Seg Neuts (1.4-5.7) Band Neutrophils # Lymphocytes # (Manual) (0.6-2.4) Monocytes # (Manual) (0.0-0.8) Absolute Metamyelocyte Nucleated RBCs # K/uL Sodium (136-145) mmol/L Potassium (3.5-5.1) mmol/L Chloride (98-107) mmol/L Carbon Dioxide (21.0-32.0) mmol/L BUN (7.0-18.0) mg/dL Creatinine (0.6-1.0) mg/dL Est Cr Clr Drug Dosing mL/min Estimated GFR (MDRD) ml/min Glucose (74-106) mg/dL POC Glucose 255 H 334 H 305 H (60-110) mg/dL Calcium (8.5-10.1) mg/dL Total Bilirubin (0.2-1.0) mg/dL AST (15-37) IU/L ALT (14-63) IU/L Alkaline Phosphatase (46-116) U/L Total Protein (6.4-8.2) g/dL Albumin (3.4-5.0) g/dL Globulin (2.6-4.0) g/dL Albumin/Globulin Ratio (0.9-1.6) 01/01/20 01/01/20 Range/Units 06:10 06:10 WBC 15.18 H (4.0-11.0) K/uL RBC 3.84 L (4.30-5.90) M/uL Hgb 10.7 L (12.0-16.0) g/dL Hct 32.4 L (36.0-46.0) % MCV 84.4 (80.0-98.0) fL MCH 27.9 (27.0-32.0) pg MCHC 33.0 (31.0-37.0) g/dL RDW Std Deviation 43.8 (28.0-62.0) fl RDW Coeff of Patrice 14 (11.0-15.0) % Plt Count 224 (150-400) K/uL MPV 10.40 (7.40-12.00) fL Add Manual Diff YES Neutrophils % (Manual) 82 H (48.0-80.0) % Band Neutrophils % 5 % Lymphocytes % (Manual) 10 L (16.0-40.0) % Monocytes % (Manual) 2 (0.0-15.0) % Metamyelocytes % 1 % Nucleated RBC % 0.0 /100WBC Absolute Seg Neuts 12.4 H (1.4-5.7) Band Neutrophils # 0.8 Lymphocytes # (Manual) 1.5 (0.6-2.4) Monocytes # (Manual) 0.3 (0.0-0.8) Absolute Metamyelocyte 0.2 Nucleated RBCs # 0 K/uL Sodium 139 (136-145) mmol/L Potassium 4.4 (3.5-5.1) mmol/L Chloride 104 (98-107) mmol/L Carbon Dioxide 22.2 (21.0-32.0) mmol/L BUN 61 H (7.0-18.0) mg/dL Creatinine 3.8 H (0.6-1.0) mg/dL Est Cr Clr Drug Dosing 12.22 mL/min Estimated GFR (MDRD) 11.7 ml/min Glucose 214 H (74-106) mg/dL POC Glucose (60-110) mg/dL Calcium 8.0 L (8.5-10.1) mg/dL Total Bilirubin 0.3 (0.2-1.0) mg/dL AST 16 (15-37) IU/L ALT 15 (14-63) IU/L Alkaline Phosphatase 56 (46-116) U/L Total Protein 5.8 L (6.4-8.2) g/dL Albumin 2.1 L (3.4-5.0) g/dL Globulin 3.7 (2.6-4.0) g/dL Albumin/Globulin Ratio 0.6 L (0.9-1.6) Med Orders - Current: Current Medications Acetaminophen (Tylenol) 650 mg PO Q4H PRN PRN Reason: Pain (Mild 1-3)/fever Last Admin: 12/30/19 23:39 Dose: 650 mg Documented by: Albuterol/Ipratropium (Combivent Respimat) 0 gm INH Q6H [facility] Last Admin: 01/01/20 06:31 Dose: 1 puff Documented by: Amlodipine Besylate (Norvasc) 5 mg PO BEDTIME [facility] Last Admin: 12/31/19 20:57 Dose: 5 mg Documented by: Aspirin (Halfprin) 81 mg PO DAILY [facility] Last Admin: 12/31/19 08:20 Dose: 81 mg Documented by: Dexamethasone (Dexamethasone) 6 mg PO DAILY [facility] Last Admin: 12/31/19 08:20 Dose: 6 mg Documented by: Dextrose/Water (Dextrose 50% In Water) 50 ml IV ASDIRECTED PRN PRN Reason: Hypoglycemia Enoxaparin Sodium (Lovenox) 70 mg SUBCUT Q24H [facility] Last Admin: 12/31/19 12:30 Dose: 70 mg Documented by: Furosemide (Lasix) 40 mg PO DAILY [facility] Last Admin: 12/31/19 08:21 Dose: 40 mg Documented by: Glucagon (Glucagen) 1 mg IM ASDIRECTED PRN PRN Reason: Hypoglycemia Pantoprazole Sodium 40 mg/ (Sodium Chloride) 10 mls @ 300 mls/hr IV DAILY [facility] Last Admin: 12/31/19 08:18 Dose: 300 mls/hr Documented by: Remdesivir 100 mg/ Sodium (Chloride) 100 mls @ 100 mls/hr IV Q24H [facility] Stop: 01/03/20 15:59 Last Admin: 12/31/19 15:23 Dose: 100 mls/hr Documented by: Insulin Aspart (Novolog) 0 unit SUBCUT TIDAC [facility]; Protocol Last Admin: 12/31/19 18:35 Dose: 8 units Documented by: Insulin Detemir (Levemir) 15 unit SUBCUT BEDTIME [facility] Last Admin: 12/31/19 21:01 Dose: 15 units Documented by: Insulin Detemir (Levemir) 25 unit SUBCUT QAM [facility] Last Admin: 12/31/19 08:22 Dose: 25 units Documented by: Ondansetron HCl (Zofran) 4 mg IVPUSH Q4H PRN PRN Reason: Nausea Cinacalcet 30 Mg 1 each PO DAILY [facility] Last Admin: 12/31/19 08:20 Dose: 1 each Documented by: Sodium Bicarbonate (Sodium Bicarbonate) 650 mg PO TID [facility] Last Admin: 01/01/20 06:09 Dose: 650 mg Documented by: Sodium Chloride (Saline Flush) 10 ml FLUSH ASDIRECTED PRN PRN Reason: Keep Vein Open Last Admin: 12/30/19 13:38 Dose: 10 ml Documented by: Sodium Chloride (Saline Flush) 2.5 ml FLUSH ASDIRECTED PRN PRN Reason: Keep Vein Open Last Admin: 12/30/19 13:38 Dose: 2.5 ml Documented by: Discontinued Medications Acetaminophen (Tylenol Extra Strength) 1,000 mg PO ONETIME ONE Stop: 12/30/19 11:08 Last Admin: 12/30/19 11:14 Dose: 1,000 mg Documented by: Albuterol/Ipratropium (Combivent Respimat) 0 gm INH Q6H [facility] Last Admin: 12/30/19 20:15 Dose: Not Given Documented by: Dexamethasone (Dexamethasone) 10 mg IVPUSH ONETIME ONE Stop: 12/30/19 12:04 Last Admin: 12/30/19 13:38 Dose: 10 mg Documented by: Enoxaparin Sodium (Lovenox) 70 mg 1 mg/kg (70 mg) SUBCUT ONETIME ONE Stop: 12/30/19 13:40 Last Admin: 12/30/19 13:46 Dose: 70 mg Documented by: Sodium Chloride (Normal Saline) 1,000 mls @ 999 mls/hr IV .Bolus ONE Stop: 12/30/19 12:07 Last Admin: 12/30/19 11:14 Dose: 999 mls/hr Documented by: Remdesivir 200 mg/ Sodium (Chloride) 250 mls @ 250 mls/hr IV ONETIME ONE Stop: 12/30/19 14:49 Last Admin: 12/30/19 15:24 Dose: 250 mls/hr Documented by: Ketorolac Tromethamine (Toradol) 15 mg IVPUSH ONETIME ONE Stop: 12/30/19 11:08 Last Admin: 12/30/19 11:15 Dose: 15 mg Documented by: - Exam General: Alert, Oriented, Cooperative, No Acute Distress Lungs: Clear to Auscultation, Normal Respiratory Effort Cardiovascular: Regular Rate, Regular Rhythm GI/Abdominal Exam: Normal Bowel Sounds, Soft, Non-Tender, No Distention Extremities: Normal Inspection, No Pedal Edema Sepsis Event Note - Evaluation Sepsis Screening Result: No Definite Risk - Focused Exam Vital Signs: Vital Signs Temp Pulse Resp BP BP Pulse Ox 01/01/20 04:13 36.6 C 75 14 120/76 95 01/01/20 00:11 36.4 C 73 15 115/68 93 L 12/31/19 20:57 132/74 12/31/19 20:53 36.6 C 76 15 132/74 95 - Problem List & Annotations (1) COVID-19 SNOMED Code(s): 242162669 Code(s): U07.1 - COVID-19 Status: Acute Current Visit: Yes (2) Chronic kidney disease SNOMED Code(s): 258106128 Code(s): N18.9 - CHRONIC KIDNEY DISEASE, UNSPECIFIED Status: Acute Current Visit: No Qualifiers: Chronic kidney disease stage: stage 4 (severe) Qualified Code(s): N18.4 - Chronic kidney disease, stage 4 (severe) (3) Hypertension SNOMED Code(s): 86529469 Code(s): I10 - ESSENTIAL (PRIMARY) HYPERTENSION Status: Acute Current Visit: No (4) Type 2 diabetes mellitus SNOMED Code(s): 15545346 Code(s): E11.9 - TYPE 2 DIABETES MELLITUS WITHOUT COMPLICATIONS Status: Acute Current Visit: No Qualifiers: Diabetes mellitus half-way insulin use: without half-way use Diabetes mellitus complication status: with unspecified complications - Problem List Review Problem List Initiated/Reviewed/Updated: Yes - My Orders Last 24 Hours: My Active Orders 12/31/19 09:00 Aspirin [Halfprin] 81 mg PO DAILY Furosemide [Lasix] 40 mg PO DAILY Insulin Detemir [Levemir] 25 unit SUBCUT QAM Patient's Own Medication [Ptom] 1 each PO DAILY dexAMETHasone 6 mg PO DAILY 12/31/19 15:00 Remdesivir (Eua) [Remdesivir (EUA)] 100 mg Sodium Chloride 0.9% [Normal Saline] 100 ml IV Q24H 01/02/20 05:11 CBC WITH AUTO DIFF [HEME] AM CMP [COMPREHENSIVE METABOLIC PN,CMP] [CHEM] AM - Plan Plan:: Assessment and Plan: 1. Acute hypoxic respiratory failure secondary to COVID19: - Will continue supplemental oxygen PRN to maintain O2 sat > 92%, Combivent q6 [facility], dexamethasone 6 mg qd, PPI and Remdesivir. - Patient given fact sheet for convalescent plasma EAU and risks were explained. Patient consents to treatment if need be. - CXR showed bilateral opacities in lung bases and RUL. 2. Elevated D-dimer: - CT angio cannot be done secondary to her CKD stage 5. Will treat for PE for now with renal-dosing of lovenox 70 mg qd. Contact [facility] to see if V/Q scan would be appropriate considering radiology can only do perfusion portion due to patient being COVID-19 positive. - Bilateral LE doppler U/S negative for DVT. 3. Acute on chronic kidney injury, improving: - CKD stage 5. Patient has AV fistula in left wrist for eventual dialysis. 4. Diabetes mellitus type 2: - ADA diet, resume long-acting home insulin regimen and start Novolog SSI with accuchecks TIDAC. 5. DVT prophylaxis: - Lovenox. 6. Past medical history of HTN: - Continue home medications.
[2020-01-01] MEDS: Furosemide 40 MG Tab PO SCH (08:49)
[2020-01-01] MEDS: Dexamethasone 4 MG Tab PO SCH (08:49)
[2020-01-01] MEDS: Aspirin 81 MG Tab.EC PO SCH (08:49)
[2020-01-01] MEDS: Pantoprazole 40 MG in Sodium Chloride 0.9% 10 ML IV SCH (08:51)
[2020-01-01] MEDS: Insulin Aspart 100 Units/ML 3 ML Pen SUBCUT SCH (08:57)
[2020-01-01] MEDS: CINACALCET 30 MG PO SCH (09:05)
[2020-01-01] MEDS: Insulin Detemir 100 Units/ML 3 ML Pen SUBCUT SCH (09:05)
--- NOTE | 2020-01-01 11:47 | PCM.DCSUM1 ---
Discharge Summary - Hospital Course Free Text/Narrative:: 69-year-old female admitted for acute hypoxic respiratory failure secondary to COVID-19. She has PMH of DM type II, CKD stage 5 and HTN. CXR showed bilateral opacities in bases and RUL. She was started on supplemental oxygen, Combivent, dexamethasone, remdesivir and Lovenox. D-dimer was elevated on admission. CT chest angio could not be obtained secondary to CKD stage 5. V/Q scan was considered, however, due to patient being COVID positive, only the perfusion component of the test would be possible and not the ventilation component. As Well's score for PE was 0 and by day of discharge patient was not hypoxic and had normal oxygen saturation on room air, V/Q scan was not ordered. She was discharged in stable condition on dexamethasone and PPI for 8 more days. Advised to follow-up with her PCP. - Discharge Data Discharge Date: 01/01/20 Discharge Disposition: Home, Self-Care 01 Condition: Stable - Referral to Home Health Primary Care Physician: PCP None - Discharge Diagnosis/Problem(s) (1) COVID-19 SNOMED Code(s): 420421522 ICD Code: U07.1 - COVID-19 Status: Acute Current Visit: Yes (2) Chronic kidney disease SNOMED Code(s): 423495840 ICD Code: N18.9 - CHRONIC KIDNEY DISEASE, UNSPECIFIED Status: Acute Current Visit: No Qualifiers: Chronic kidney disease stage: stage 4 (severe) Qualified Code(s): N18.4 - Chronic kidney disease, stage 4 (severe) (3) Hypertension SNOMED Code(s): 89180373 ICD Code: I10 - ESSENTIAL (PRIMARY) HYPERTENSION Status: Acute Current Visit: No (4) Type 2 diabetes mellitus SNOMED Code(s): 06413619 ICD Code: E11.9 - TYPE 2 DIABETES MELLITUS WITHOUT COMPLICATIONS Status: Acute Current Visit: No Qualifiers: Diabetes mellitus buttermaker continuous churn insulin use: without buttermaker continuous churn use Diabetes mellitus complication status: with unspecified complications - Patient Instructions Diet: Diabetic Diet Activity: As Tolerated Notify Provider of: Fever, Increased Pain, Swelling and Redness, Drainage, Nausea and/or Vomiting - Discharge Plan *PRESCRIPTION DRUG MONITORING PROGRAM REVIEWED*: Not Applicable *COPY OF PRESCRIPTION DRUG MONITORING REPORT IN PATIENT MANISHA: Not Applicable Prescriptions/Med Rec: dexAMETHasone [Dexamethasone] 6 mg PO DAILY 8 Days #24 tablet Pantoprazole [ProTONIX] 40 mg PO DAILY 8 Days #8 tab.cr Home Medications: Home Meds Aspirin [Halfprin] 81 mg PO DAILY 02/25/18 [History] Furosemide [Lasix] 40 mg PO DAILY 02/25/18 [History] Insulin Detemir [Levemir Flextouch] 15 units SUBCUT BEDTIME 02/25/18 [History] Insulin Detemir [Levemir Flextouch] 25 units SUBCUT QAM 02/25/18 [History] SitaGLIPtin [Januvia] 50 mg PO DAILY 02/25/18 [History] amLODIPine Besylate [Amlodipine Besylate] 5 mg PO BEDTIME 02/25/18 [History] glipiZIDE [Glucotrol XL] 5 mg PO BID 02/25/18 [History] Sodium Bicarbonate 650 mg PO TID 09/20/19 [History] Cinacalcet [Sensipar] 30 mg PO DAILY 12/30/19 [History] Diclofenac Sodium 1 applic TOP QID PRN 12/30/19 [History] Fluticasone Propionate 1 spray NASBOTH DAILY PRN 12/30/19 [History] Pantoprazole [ProTONIX] 40 mg PO DAILY 8 Days #8 tab.cr 01/01/20 [Rx] dexAMETHasone [Dexamethasone] 6 mg PO DAILY 8 Days #24 tablet 01/01/20 [Rx] Oxygen Therapy Mode: Room Air Patient Handouts: COVID-19, COVID-19: How to Protect Yourself and Others - [facility] [place], Pantoprazole tablets, Dexamethasone tablets, Prevent the Spread of COVID-19 if You Are Sick - [facility] [place] Referrals: Janine Back MD [Physician] - (Please set up a follow up appointment with Dr. Back after 1 week.) - Discharge Summary/Plan Comment DC Time >30 min.: No - Patient Data Vitals - Most Recent: Last Vital Signs Temp 36.2 C 01/01/20 08:00 Pulse 77 01/01/20 08:00 Resp 16 01/01/20 08:00 BP 127/72 01/01/20 08:00 Pulse Ox 96 01/01/20 08:00 Weight - Most Recent: 66.587 kg I&O - Last 24 hours: Intake & Output 12/31/19 01/01/20 01/01/20 22:59 06:59 14:59 Intake Total 1100 1100 Output Total 2300 1300 Balance -1200 -200 Lab Results - Last 24 hrs: Laboratory Results - last 24 hr 12/31/19 12/31/19 12/31/19 Range/Units 12:27 18:33 21:00 WBC (4.0-11.0) K/uL RBC (4.30-5.90) M/uL Hgb (12.0-16.0) g/dL Hct (36.0-46.0) % MCV (80.0-98.0) fL MCH (27.0-32.0) pg MCHC (31.0-37.0) g/dL RDW Std Deviation (28.0-62.0) fl RDW Coeff of Patrice (11.0-15.0) % Plt Count (150-400) K/uL MPV (7.40-12.00) fL Add Manual Diff Neutrophils % (Manual) (48.0-80.0) % Band Neutrophils % % Lymphocytes % (Manual) (16.0-40.0) % Monocytes % (Manual) (0.0-15.0) % Metamyelocytes % % Nucleated RBC % /100WBC Absolute Seg Neuts (1.4-5.7) Band Neutrophils # Lymphocytes # (Manual) (0.6-2.4) Monocytes # (Manual) (0.0-0.8) Absolute Metamyelocyte Nucleated RBCs # K/uL Sodium (136-145) mmol/L Potassium (3.5-5.1) mmol/L Chloride (98-107) mmol/L Carbon Dioxide (21.0-32.0) mmol/L BUN (7.0-18.0) mg/dL Creatinine (0.6-1.0) mg/dL Est Cr Clr Drug Dosing mL/min Estimated GFR (MDRD) ml/min Glucose (74-106) mg/dL POC Glucose 255 H 334 H 305 H (60-110) mg/dL Calcium (8.5-10.1) mg/dL Total Bilirubin (0.2-1.0) mg/dL AST (15-37) IU/L ALT (14-63) IU/L Alkaline Phosphatase (46-116) U/L Total Protein (6.4-8.2) g/dL Albumin (3.4-5.0) g/dL Globulin (2.6-4.0) g/dL Albumin/Globulin Ratio (0.9-1.6) 01/01/20 01/01/20 01/01/20 Range/Units 06:10 06:10 07:22 WBC 15.18 H (4.0-11.0) K/uL RBC 3.84 L (4.30-5.90) M/uL Hgb 10.7 L (12.0-16.0) g/dL Hct 32.4 L (36.0-46.0) % MCV 84.4 (80.0-98.0) fL MCH 27.9 (27.0-32.0) pg MCHC 33.0 (31.0-37.0) g/dL RDW Std Deviation 43.8 (28.0-62.0) fl RDW Coeff of Patrice 14 (11.0-15.0) % Plt Count 224 (150-400) K/uL MPV 10.40 (7.40-12.00) fL Add Manual Diff YES Neutrophils % (Manual) 82 H (48.0-80.0) % Band Neutrophils % 5 % Lymphocytes % (Manual) 10 L (16.0-40.0) % Monocytes % (Manual) 2 (0.0-15.0) % Metamyelocytes % 1 % Nucleated RBC % 0.0 /100WBC Absolute Seg Neuts 12.4 H (1.4-5.7) Band Neutrophils # 0.8 Lymphocytes # (Manual) 1.5 (0.6-2.4) Monocytes # (Manual) 0.3 (0.0-0.8) Absolute Metamyelocyte 0.2 Nucleated RBCs # 0 K/uL Sodium 139 (136-145) mmol/L Potassium 4.4 (3.5-5.1) mmol/L Chloride 104 (98-107) mmol/L Carbon Dioxide 22.2 (21.0-32.0) mmol/L BUN 61 H (7.0-18.0) mg/dL Creatinine 3.8 H (0.6-1.0) mg/dL Est Cr Clr Drug Dosing 12.22 mL/min Estimated GFR (MDRD) 11.7 ml/min Glucose 214 H (74-106) mg/dL POC Glucose 167 H (60-110) mg/dL Calcium 8.0 L (8.5-10.1) mg/dL Total Bilirubin 0.3 (0.2-1.0) mg/dL AST 16 (15-37) IU/L ALT 15 (14-63) IU/L Alkaline Phosphatase 56 (46-116) U/L Total Protein 5.8 L (6.4-8.2) g/dL Albumin 2.1 L (3.4-5.0) g/dL Globulin 3.7 (2.6-4.0) g/dL Albumin/Globulin Ratio 0.6 L (0.9-1.6) 01/01/20 Range/Units 08:56 WBC (4.0-11.0) K/uL RBC (4.30-5.90) M/uL Hgb (12.0-16.0) g/dL Hct (36.0-46.0) % MCV (80.0-98.0) fL MCH (27.0-32.0) pg MCHC (31.0-37.0) g/dL RDW Std Deviation (28.0-62.0) fl RDW Coeff of Patrice (11.0-15.0) % Plt Count (150-400) K/uL MPV (7.40-12.00) fL Add Manual Diff Neutrophils % (Manual) (48.0-80.0) % Band Neutrophils % % Lymphocytes % (Manual) (16.0-40.0) % Monocytes % (Manual) (0.0-15.0) % Metamyelocytes % % Nucleated RBC % /100WBC Absolute Seg Neuts (1.4-5.7) Band Neutrophils # Lymphocytes # (Manual) (0.6-2.4) Monocytes # (Manual) (0.0-0.8) Absolute Metamyelocyte Nucleated RBCs # K/uL Sodium (136-145) mmol/L Potassium (3.5-5.1) mmol/L Chloride (98-107) mmol/L Carbon Dioxide (21.0-32.0) mmol/L BUN (7.0-18.0) mg/dL Creatinine (0.6-1.0) mg/dL Est Cr Clr Drug Dosing mL/min Estimated GFR (MDRD) ml/min Glucose (74-106) mg/dL POC Glucose 141 H (60-110) mg/dL Calcium (8.5-10.1) mg/dL Total Bilirubin (0.2-1.0) mg/dL AST (15-37) IU/L ALT (14-63) IU/L Alkaline Phosphatase (46-116) U/L Total Protein (6.4-8.2) g/dL Albumin (3.4-5.0) g/dL Globulin (2.6-4.0) g/dL Albumin/Globulin Ratio (0.9-1.6) Med Orders - Current: Current Medications Acetaminophen (Tylenol) 650 mg PO Q4H PRN PRN Reason: Pain (Mild 1-3)/fever Last Admin: 12/30/19 23:39 Dose: 650 mg Documented by: Albuterol/Ipratropium (Combivent Respimat) 0 gm INH Q6H [facility] Last Admin: 01/01/20 11:15 Dose: 1 puff Documented by: Amlodipine Besylate (Norvasc) 5 mg PO BEDTIME [facility] Last Admin: 12/31/19 20:57 Dose: 5 mg Documented by: Aspirin (Halfprin) 81 mg PO DAILY [facility] Last Admin: 01/01/20 08:49 Dose: 81 mg Documented by: Dexamethasone (Dexamethasone) 6 mg PO DAILY [facility] Last Admin: 01/01/20 08:49 Dose: 6 mg Documented by: Dextrose/Water (Dextrose 50% In Water) 50 ml IV ASDIRECTED PRN PRN Reason: Hypoglycemia Enoxaparin Sodium (Lovenox) 70 mg SUBCUT Q24H [facility] Last Admin: 12/31/19 12:30 Dose: 70 mg Documented by: Furosemide (Lasix) 40 mg PO DAILY [facility] Last Admin: 01/01/20 08:49 Dose: 40 mg Documented by: Glucagon (Glucagen) 1 mg IM ASDIRECTED PRN PRN Reason: Hypoglycemia Pantoprazole Sodium 40 mg/ (Sodium Chloride) 10 mls @ 300 mls/hr IV DAILY [facility] Last Admin: 01/01/20 08:51 Dose: 300 mls/hr Documented by: Remdesivir 100 mg/ Sodium (Chloride) 100 mls @ 100 mls/hr IV Q24H [facility] Stop: 01/03/20 15:59 Last Admin: 12/31/19 15:23 Dose: 100 mls/hr Documented by: Insulin Aspart (Novolog) 0 unit SUBCUT TIDAC [facility]; Protocol Last Admin: 01/01/20 08:57 Dose: Not Given Documented by: Insulin Detemir (Levemir) 15 unit SUBCUT BEDTIME [facility] Last Admin: 12/31/19 21:01 Dose: 15 units Documented by: Insulin Detemir (Levemir) 25 unit SUBCUT QAM [facility] Last Admin: 01/01/20 09:05 Dose: 25 units Documented by: Ondansetron HCl (Zofran) 4 mg IVPUSH Q4H PRN PRN Reason: Nausea Cinacalcet 30 Mg 1 each PO DAILY [facility] Last Admin: 01/01/20 09:05 Dose: 1 each Documented by: Sodium Bicarbonate (Sodium Bicarbonate) 650 mg PO TID [facility] Last Admin: 01/01/20 06:09 Dose: 650 mg Documented by: Sodium Chloride (Saline Flush) 10 ml FLUSH ASDIRECTED PRN PRN Reason: Keep Vein Open Last Admin: 12/30/19 13:38 Dose: 10 ml Documented by: Sodium Chloride (Saline Flush) 2.5 ml FLUSH ASDIRECTED PRN PRN Reason: Keep Vein Open Last Admin: 12/30/19 13:38 Dose: 2.5 ml Documented by: Discontinued Medications Acetaminophen (Tylenol Extra Strength) 1,000 mg PO ONETIME ONE Stop: 12/30/19 11:08 Last Admin: 12/30/19 11:14 Dose: 1,000 mg Documented by: Albuterol/Ipratropium (Combivent Respimat) 0 gm INH Q6H [facility] Last Admin: 12/30/19 20:15 Dose: Not Given Documented by: Dexamethasone (Dexamethasone) 10 mg IVPUSH ONETIME ONE Stop: 12/30/19 12:04 Last Admin: 12/30/19 13:38 Dose: 10 mg Documented by: Enoxaparin Sodium (Lovenox) 70 mg 1 mg/kg (70 mg) SUBCUT ONETIME ONE Stop: 12/30/19 13:40 Last Admin: 12/30/19 13:46 Dose: 70 mg Documented by: Sodium Chloride (Normal Saline) 1,000 mls @ 999 mls/hr IV .Bolus ONE Stop: 12/30/19 12:07 Last Admin: 12/30/19 11:14 Dose: 999 mls/hr Documented by: Remdesivir 200 mg/ Sodium (Chloride) 250 mls @ 250 mls/hr IV ONETIME ONE Stop: 12/30/19 14:49 Last Admin: 12/30/19 15:24 Dose: 250 mls/hr Documented by: Ketorolac Tromethamine (Toradol) 15 mg IVPUSH ONETIME ONE Stop: 12/30/19 11:08 Last Admin: 12/30/19 11:15 Dose: 15 mg Documented by:
== END 2020-01-01 12:30 | disposition home or self-care (01) | DRG 177 ==
LOC: MW.ED 11:04 → MW.MS 13:56
PROVIDERS: ADMIT Internal Medicine; ATTEND Internal Medicine
PROC: XW033E5 Introduction of Remdesivir Anti-infective into Peripheral Vein, Percutaneous Approach, New Technology Group 5 (ICD-10-PCS; principal; 2019-12-30)
DX: U07.1 COVID-19 (principal); H54.7 Unspecified visual loss; I12.0 Hypertensive chronic kidney disease with stage 5 chronic kidney disease or end stage renal disease; J96.01 Acute respiratory failure with hypoxia; N18.5 Chronic kidney disease, stage 5; N17.9 Acute kidney failure, unspecified; N18.4 Chronic kidney disease, stage 4 (severe); Z98.890 Other specified postprocedural states; I12.9 Hypertensive chronic kidney disease with stage 1 through stage 4 chronic kidney disease, or unspecified chronic kidney disease; E11.22 Type 2 diabetes mellitus with diabetic chronic kidney disease; Z79.82 Long term (current) use of aspirin; Z79.4 Long term (current) use of insulin; Z79.899 Other long term (current) drug therapy; Z79.1 Long term (current) use of non-steroidal anti-inflammatories (NSAID); Z88.8 Allergy status to other drugs, medicaments and biological substances; Z91.040 Latex allergy status; M19.90 Unspecified osteoarthritis, unspecified site; Z90.89 Acquired absence of other organs; R79.89 Other specified abnormal findings of blood chemistry; R01.1 Cardiac murmur, unspecified; I77.0 Arteriovenous fistula, acquired; Z87.820 Personal history of traumatic brain injury
CPT/HCPCS: 71045; 80053; 83605; 83735; 83880; 84484; 85025; 85379; 85610; 85730; 86140; 93005; 96372; 96374; 96375; 99285; A9270; J1100; J1650; J1885; J7030; 36415; 81001; 82962; 86850; 86900; 86901; 93010; 93970; 93970-26; 94640; 99222; 99232; 99238; 99283; C9113; J1815-GY; J7050; J8540

== ENCOUNTER 2020-11-22 18:47 | Emergency (ER) | payer OTHER, MEDICARE ==
[2020-11-23] MEDS ORDERED: traMADol 50 MG Tab PO ONE (00:42)
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
== END 2020-11-23 02:18 | disposition home or self-care (01) ==
LOC: MW.ED 18:47
DX: S70.02XA Contusion of left hip, initial encounter (principal); S80.02XA Contusion of left knee, initial encounter; I10 Essential (primary) hypertension; I12.0 Hypertensive chronic kidney disease with stage 5 chronic kidney disease or end stage renal disease; E11.22 Type 2 diabetes mellitus with diabetic chronic kidney disease; N18.5 Chronic kidney disease, stage 5; M19.90 Unspecified osteoarthritis, unspecified site; Z88.8 Allergy status to other drugs, medicaments and biological substances; Z91.040 Latex allergy status; Z79.82 Long term (current) use of aspirin; Z79.4 Long term (current) use of insulin; Z79.899 Other long term (current) drug therapy; V40.5XXA Car driver injured in collision with pedestrian or animal in traffic accident, initial encounter
CPT/HCPCS: 73502; 73552; 99284; A9270

== ENCOUNTER 2021-06-11 22:14 | Emergency (ER) | payer MEDICARE, OTHER ==
[2021-06-11] MEDS ORDERED: Sodium Chloride 0.9% 10 ML Syringe FLUSH PRN (22:48)
[2021-06-11] MEDS ORDERED: Sodium Chloride 0.9% 2.5 ML Syringe FLUSH PRN (22:48)
[2021-06-11] MEDS ORDERED: Diltiazem 25 MG/5 ML SDV IVPUSH ONE (22:49)
[2021-06-11] MEDS ORDERED: Sodium Chloride 0.9% 250 ML IV SCH (23:00)
[2021-06-11] MEDS ORDERED: diphenhydrAMINE 50 MG/ML SDV IVPUSH ONE (23:49)
[2021-06-11] MEDS ORDERED: Sodium Chloride 0.9% 250 ML IV ONE (23:59)
[2021-06-12 00:12] LABS: BLOOD UREA NITROGEN,BUN 31 mg/dL (7.0-18.0); CARBON DIOXIDE,CO2 27.6 mmol/L (21.0-32.0); CHLORIDE,CL 101 mmol/L (98-107); GLUCOSE RANDOM 247 mg/dL (74-106); POTASSIUM,K 4.4 mmol/L (3.5-5.1); SODIUM,NA 138 mmol/L (136-145)
[2021-06-12] MEDS ORDERED: Aspirin 81 MG Tab.Chew PO STA (01:41)
[2021-06-12] MEDS ORDERED: Heparin Sodium 5,000 Units/ML Vial IVPUSH ONE (02:06)
[2021-06-12] MEDS ORDERED: Heparin Sodium/0.45% NaCl 500 ML IV SCH (02:15)
[2021-06-12] MEDS ORDERED: Iopamidol 755 MG/ML 500 ML Multipack Bottle IVPUSH STA (02:51)
== END 2021-06-12 05:30 | disposition other institution (70) ==
LOC: MW.ED 22:14
DX: I48.91 Unspecified atrial fibrillation (principal); I21.4 Non-ST elevation (NSTEMI) myocardial infarction; I12.0 Hypertensive chronic kidney disease with stage 5 chronic kidney disease or end stage renal disease; E11.22 Type 2 diabetes mellitus with diabetic chronic kidney disease; N18.5 Chronic kidney disease, stage 5; M19.90 Unspecified osteoarthritis, unspecified site; Z90.49 Acquired absence of other specified parts of digestive tract; Z79.82 Long term (current) use of aspirin; Z79.899 Other long term (current) drug therapy; Z88.8 Allergy status to other drugs, medicaments and biological substances; Z91.040 Latex allergy status; Z20.822 Contact with and (suspected) exposure to COVID-19
CPT/HCPCS: 36415; 71045; 71275; 80053; 83880; 84443; 84484; 85025; 85379; 85610; 85730; 93005; 96365; 96366; 96375; 99285; A9270; J1200; J1644; J3490; J7030; Q9967; U0002; 99291

== ENCOUNTER 2021-08-09 08:08 | Day surgery (SDC) | payer MEDICARE, OTHER ==
[~2021-08-09 08:08] MED LIST changes: +Bupivacaine 0.5% 30 ML SDV ONE; +Lidocaine 1% 20 ML MDV ONE
[2021-08-09] MEDS ORDERED: Ondansetron 4 MG/2 ML SDV ONE (09:10)
[2021-08-09] MEDS ORDERED: Propofol 200 MG/20 ML SDV ONE (09:11)
[2021-08-09] MEDS ORDERED: fentaNYL 100 MCG/2 ML SDV ONE (09:11)
[2021-08-09] MEDS ORDERED: Sodium Chloride 0.9% 500 ML IV ONE (09:15)
[2021-08-09] MEDS ORDERED: Lactated Ringers 1,000 ML IV SCH (10:15)
== END 2021-08-09 11:35 | disposition home or self-care (01) ==
LOC: MW.SDS 08:08
PROVIDERS: ATTEND Surgery
DX: T82.49XA Other complication of vascular dialysis catheter, initial encounter (principal); I12.0 Hypertensive chronic kidney disease with stage 5 chronic kidney disease or end stage renal disease; E11.22 Type 2 diabetes mellitus with diabetic chronic kidney disease; N18.5 Chronic kidney disease, stage 5; Z88.8 Allergy status to other drugs, medicaments and biological substances; Z99.2 Dependence on renal dialysis; Z72.89 Other problems related to lifestyle; Z79.4 Long term (current) use of insulin; Z79.899 Other long term (current) drug therapy; Z91.040 Latex allergy status; Y83.8 Other surgical procedures as the cause of abnormal reaction of the patient, or of later complication, without mention of misadventure at the time of the procedure
CPT/HCPCS: 36589; 82947; J2405; J2704; J3010; J3490; J7030; 00400; 99100

== ENCOUNTER 2022-05-08 10:31 | Emergency (ER) | payer MEDICARE | END 2022-05-08 12:03 | disposition home or self-care (01) | LOC: MW.ED 10:31 | DX: R60.0 Localized edema (principal); E11.22 Type 2 diabetes mellitus with diabetic chronic kidney disease; I12.0 Hypertensive chronic kidney disease with stage 5 chronic kidney disease or end stage renal disease; N18.5 Chronic kidney disease, stage 5; Z91.040 Latex allergy status; Z88.8 Allergy status to other drugs, medicaments and biological substances; Z79.82 Long term (current) use of aspirin; Z79.4 Long term (current) use of insulin | CPT/HCPCS: 93971-26-LT; 93971-LT; 99283 ==

== ENCOUNTER 2023-07-09 15:35 | Emergency (ER) | payer MEDICARE, OTHER | END 2023-07-09 20:04 | disposition home or self-care (01) | LOC: MW.ED 15:35 | DX: M79.671 Pain in right foot (principal); I10 Essential (primary) hypertension; E11.9 Type 2 diabetes mellitus without complications; Z75.8 Other problems related to medical facilities and other health care; Z79.82 Long term (current) use of aspirin; Z79.84 Long term (current) use of oral hypoglycemic drugs; Z79.4 Long term (current) use of insulin; Z79.899 Other long term (current) drug therapy; Z91.040 Latex allergy status; Z88.8 Allergy status to other drugs, medicaments and biological substances; Z88.1 Allergy status to other antibiotic agents | CPT/HCPCS: 73620-26-RT; 73620-RT; 99282; 99283 ==

== ENCOUNTER 2023-08-30 15:19 | Emergency (ER) | payer MEDICARE, OTHER ==
[2023-08-30] MEDS: Sodium Chloride 0.9% 1,000 ML IV ONE ×2 (15:36→16:23)
[2023-08-30 16:07] LABS: BASOPHILS ABSOLUTE AUTO 0.04 K/uL (0.00-0.20); BASOPHILS PERCENT AUTO 0.3 % (0.0-1.0); EOSINOPHILS ABSOLUTE AUTO 0.07 K/uL (0.00-0.45); EOSINOPHILS PERCENT AUTO 0.5 % (0.0-6.0); HEMATOCRIT 33.4 % (37.0-47.0); HEMOGLOBIN 11.2 g/dL (12.0-16.0); IMMATURE GRAN ABSOLUTE AUTO 0.07 K/uL (0.00-0.05); IMMATURE GRAN PERCENT AUTO 0.5 % (0.0-0.4); LYMPHOCYTES ABSOLUTE AUTO 0.65 K/uL (1.00-4.80); LYMPHOCYTES PERCENT AUTO 4.7 % (24.0-44.0); MEAN CORPUSCULAR HEMOGLOBIN 30.8 pg (28.0-32.0); MEAN CORPUSCULAR HGB CONC 33.5 g/dL (32.0-36.0); MEAN CORPUSCULAR VOLUME 91.8 fL (83.0-99.0); MEAN PLATELET VOLUME 10.5 fL (9.4-12.3); MONOCYTES ABSOLUTE AUTO 0.55 K/uL (0.00-0.80); MONOCYTES PERCENT AUTO 3.9 % (0.0-8.0); NEUTROPHILS ABSOLUTE AUTO 12.58 K/uL (1.80-7.70); NEUTROPHILS PERCENT AUTO 90.1 % (41.0-71.0); PLATELET COUNT,PLT 220 K/uL (150-400); RED BLOOD CELL COUNT 3.64 M/uL (4.10-5.30); WHITE BLOOD CELL COUNT,WBC 13.96 K/uL (3.9-11.3)
[2023-08-30] MEDS: Lidocaine 4% 1 each Patch TOP STA (16:23)
[2023-08-30 16:41] LABS: D-DIMER QUANTITATIVE 3.47 mg/L FEU (0.00-0.50); INR 1.11 (0.86-1.11); PTT,PARTIAL THROMBOPLSTIN TIME 29.6 SEC (23.9-30.7)
[2023-08-30 16:46] LABS: A/G RATIO 0.9 (0.9-1.6); ALBUMIN 3.4 g/dL (3.4-5.0); BILIRUBIN TOTAL 0.5 mg/dL (0.2-1.0); CALCIUM 8.8 mg/dL (8.5-10.1); CARBON DIOXIDE,CO2 26.1 mmol/L (21.0-32.0); CREATININE 8.6 mg/dL (0.6-1.0); EST CRCL DRUG DOSING (CG) 5.16 mL/min; MAGNESIUM 1.6 mg/dL (1.8-2.4); PROTEIN TOTAL,TP 7.1 g/dL (6.4-8.2)
[2023-08-30 17:10] LABS: APPEARANCE,URINE CLOUDY; BILIRUBIN,URINE NEGATIVE (NEGATIVE); COLOR,URINE YELLOW; GLUCOSE,URINE NEGATIVE (NEGATIVE); KETONES,URINE NEGATIVE (NEGATIVE); LEUKOCYTE ESTERASE,URINE LARGE (NEGATIVE); NITRITE,URINE NEGATIVE (NEGATIVE); OCCULT BLOOD,URINE LARGE (NEGATIVE); PROTEIN,URINE 100 mg/dL (NEGATIVE); UROBILINOGEN,URINE 0.2 EU/dL (<2.0)
[2023-08-30 17:19] LABS: AMPHETAMINES SCREEN, URINE NEGATIVE (CUTOFF=500); BARBITURATE SCREEN,URINE NEGATIVE (CUTOFF=200); BENZODIAZEPINES SCREEN,URINE NEGATIVE (CUTOFF=150); BUPRENORPHINE SCREEN,URINE NEGATIVE (CUTOFF=10); METHADONE SCREEN, URINE NEGATIVE (CUTOFF=200); METHAMPHETAMINES SCREEN, URINE NEGATIVE (CUTOFF=500); OXYCODONE SCREEN,URINE NEGATIVE (CUT0FF=100); PCP SCREEN,URINE NEGATIVE (CUTOFF=25); THC SCREEN,URINE 20 NG/ML NEGATIVE (CUTOFF=50)
[2023-08-30 17:27] LABS: BACTERIA,URINE MANY (NEGATIVE); EPITHELIAL CELLS,URINE FEW (NONE-FEW); WBC,URINE TOO NUMEROUS TO CT (0-5/HPF)
[2023-08-30] MEDS: Cefepime 2 GM in Sodium Chloride 0.9% 50 ML IV ONE (18:29)
[2023-08-30] MEDS: cefTRIAXone 1 GM in Sodium Chloride 0.9% 50 ML IV ONE (18:32)
== END 2023-08-30 19:30 | disposition home or self-care (01) ==
LOC: MW.ED 15:19
DX: E11.649 Type 2 diabetes mellitus with hypoglycemia without coma (principal); N39.0 Urinary tract infection, site not specified; I10 Essential (primary) hypertension; Z90.49 Acquired absence of other specified parts of digestive tract; Z79.4 Long term (current) use of insulin; Z91.040 Latex allergy status; Z88.8 Allergy status to other drugs, medicaments and biological substances; Z75.8 Other problems related to medical facilities and other health care
CPT/HCPCS: 36415; 70450; 71045; 80053; 80305; 81001; 82947; 83735; 84484; 85025; 85379; 85610; 85730; 87086; 93005; 96361; 96365; 99285; A9270; J0692; J3490; J7030

== ENCOUNTER 2023-11-04 09:32 | Emergency (ER) | payer MEDICARE, OTHER ==
[2023-11-04] MEDS ORDERED: Sodium Chloride 0.9% 2.5 ML Syringe FLUSH PRN (10:04)
[2023-11-04 10:24] LABS: BASOPHILS ABSOLUTE AUTO 0.07 K/uL (0.00-0.20); BASOPHILS PERCENT AUTO 0.6 % (0.0-1.0); EOSINOPHILS ABSOLUTE AUTO 0.25 K/uL (0.00-0.45); EOSINOPHILS PERCENT AUTO 2.2 % (0.0-6.0); HEMATOCRIT 29.9 % (37.0-47.0); HEMOGLOBIN 9.8 g/dL (12.0-16.0); IMMATURE GRAN ABSOLUTE AUTO 0.08 K/uL (0.00-0.05); IMMATURE GRAN PERCENT AUTO 0.7 % (0.0-0.4); LYMPHOCYTES ABSOLUTE AUTO 0.93 K/uL (1.00-4.80); LYMPHOCYTES PERCENT AUTO 8.3 % (24.0-44.0); MEAN CORPUSCULAR HEMOGLOBIN 29.9 pg (28.0-32.0); MEAN CORPUSCULAR HGB CONC 32.8 g/dL (32.0-36.0); MEAN CORPUSCULAR VOLUME 91.2 fL (83.0-99.0); MEAN PLATELET VOLUME 10.6 fL (9.4-12.3); MONOCYTES ABSOLUTE AUTO 0.55 K/uL (0.00-0.80); MONOCYTES PERCENT AUTO 4.9 % (0.0-8.0); NEUTROPHILS ABSOLUTE AUTO 9.31 K/uL (1.80-7.70); NEUTROPHILS PERCENT AUTO 83.3 % (41.0-71.0); PLATELET COUNT,PLT 189 K/uL (150-400); RED BLOOD CELL COUNT 3.28 M/uL (4.10-5.30); WHITE BLOOD CELL COUNT,WBC 11.19 K/uL (3.9-11.3)
[2023-11-04 10:49] LABS: A/G RATIO 0.8 (0.9-1.6); ALBUMIN 3.3 g/dL (3.4-5.0); BILIRUBIN TOTAL 0.4 mg/dL (0.2-1.0); CALCIUM 8.5 mg/dL (8.5-10.1); CARBON DIOXIDE,CO2 29.7 mmol/L (21.0-32.0); CREATININE 5.6 mg/dL (0.6-1.0); EST CRCL DRUG DOSING (CG) 7.81 mL/min; MAGNESIUM 1.7 mg/dL (1.8-2.4); POTASSIUM,K 4.9 mmol/L (3.5-5.1); PROTEIN TOTAL,TP 7.4 g/dL (6.4-8.2)
[2023-11-04] MEDS: Acetaminophen/HYDROcodone 325-5 MG Tab PO ONE (11:41)
[2023-11-04] MEDS: Sodium Chloride 0.9% 10 ML Syringe FLUSH PRN (11:42)
== END 2023-11-04 13:03 | disposition home or self-care (01) ==
LOC: MW.ED 09:32
DX: R55 Syncope and collapse (principal); S09.90XA Unspecified injury of head, initial encounter; I12.0 Hypertensive chronic kidney disease with stage 5 chronic kidney disease or end stage renal disease; N18.6 End stage renal disease; Z79.4 Long term (current) use of insulin; E11.9 Type 2 diabetes mellitus without complications; E78.00 Pure hypercholesterolemia, unspecified; Z91.040 Latex allergy status; Z88.8 Allergy status to other drugs, medicaments and biological substances; Z79.82 Long term (current) use of aspirin; Z79.899 Other long term (current) drug therapy; Z75.8 Other problems related to medical facilities and other health care; W19.XXXA Unspecified fall, initial encounter; Y93.89 Activity, other specified; Y99.0 Civilian activity done for income or pay
CPT/HCPCS: 36415; 70450; 72125; 72131; 80053; 83735; 84484; 85025; 93005; 99284; A9270; J3490; 93010

== ENCOUNTER 2024-02-28 15:54 | Emergency (ER) | payer MEDICARE, OTHER ==
[2024-02-28 16:55] LABS: BASOPHILS ABSOLUTE AUTO 0.06 K/uL (0.00-0.20); BASOPHILS PERCENT AUTO 0.4 % (0.0-1.0); EOSINOPHILS ABSOLUTE AUTO 0.08 K/uL (0.00-0.45); EOSINOPHILS PERCENT AUTO 0.6 % (0.0-6.0); HEMATOCRIT 35.1 % (37.0-47.0); HEMOGLOBIN 11.7 g/dL (12.0-16.0); IMMATURE GRAN ABSOLUTE AUTO 0.07 K/uL (0.00-0.05); IMMATURE GRAN PERCENT AUTO 0.5 % (0.0-0.4); LYMPHOCYTES ABSOLUTE AUTO 0.91 K/uL (1.00-4.80); LYMPHOCYTES PERCENT AUTO 6.7 % (24.0-44.0); MEAN CORPUSCULAR HEMOGLOBIN 29.5 pg (28.0-32.0); MEAN CORPUSCULAR HGB CONC 33.3 g/dL (32.0-36.0); MEAN CORPUSCULAR VOLUME 88.6 fL (83.0-99.0); MEAN PLATELET VOLUME 10.8 fL (9.4-12.3); MONOCYTES ABSOLUTE AUTO 0.51 K/uL (0.00-0.80); MONOCYTES PERCENT AUTO 3.7 % (0.0-8.0); NEUTROPHILS ABSOLUTE AUTO 11.98 K/uL (1.80-7.70); NEUTROPHILS PERCENT AUTO 88.1 % (41.0-71.0); PLATELET COUNT,PLT 210 K/uL (150-400); RED BLOOD CELL COUNT 3.96 M/uL (4.10-5.30); WHITE BLOOD CELL COUNT,WBC 13.61 K/uL (3.9-11.3)
[2024-02-28] MEDS: Sodium Chloride 0.9% 1,000 ML IV ONE (17:05)
[2024-02-28] MEDS: Sodium Chloride 0.9% 500 ML IV SCH (17:15)
[2024-02-28] MEDS: Ondansetron 4 MG/2 ML SDV IVPUSH ONE (17:19)
[2024-02-28 17:22] LABS: A/G RATIO 0.8 (0.9-1.6); ALBUMIN 3.7 g/dL (3.4-5.0); BILIRUBIN TOTAL 0.7 mg/dL (0.2-1.0); CALCIUM 10.6 mg/dL (8.5-10.1); CARBON DIOXIDE,CO2 27.6 mmol/L (21.0-32.0); CREATININE 6.5 mg/dL (0.6-1.0); EST CRCL DRUG DOSING (CG) 6.73 mL/min; POTASSIUM,K 3.8 mmol/L (3.5-5.1); PROTEIN TOTAL,TP 8.3 g/dL (6.4-8.2)
[2024-02-28] MEDS: cefTRIAXone 1 GM in Sodium Chloride 0.9% 50 ML IV ONE (19:12)
== END 2024-02-28 22:50 ==
LOC: MW.ED 15:54
DX: E86.0 Dehydration (principal); I12.0 Hypertensive chronic kidney disease with stage 5 chronic kidney disease or end stage renal disease; N18.6 End stage renal disease; E11.22 Type 2 diabetes mellitus with diabetic chronic kidney disease; Z90.49 Acquired absence of other specified parts of digestive tract; Z79.82 Long term (current) use of aspirin; Z79.4 Long term (current) use of insulin; Z79.899 Other long term (current) drug therapy; Z99.2 Dependence on renal dialysis; Z88.8 Allergy status to other drugs, medicaments and biological substances; Z91.040 Latex allergy status
CPT/HCPCS: 36415; 74150; 80053; 82947; 83605; 85025; 87045; 87046; 87324; 87338; 87449; 87899; 93005; 96361; 96365; 96375; 99285; J0696; J2405; J3490; J7040; 93010; 99284

== ENCOUNTER 2024-04-14 15:49 | Emergency (ER) | payer OTHER ==
[2024-04-14] MEDS: Sodium Chloride 0.9% 1,000 ML IV ONE (16:26)
[2024-04-14 16:27] LABS: BASOPHILS ABSOLUTE AUTO 0.07 K/uL (0.00-0.20); BASOPHILS PERCENT AUTO 0.5 % (0.0-1.0); EOSINOPHILS ABSOLUTE AUTO 0.03 K/uL (0.00-0.45); EOSINOPHILS PERCENT AUTO 0.2 % (0.0-6.0); HEMATOCRIT 28.6 % (37.0-47.0); IMMATURE GRAN ABSOLUTE AUTO 0.06 K/uL (0.00-0.05); IMMATURE GRAN PERCENT AUTO 0.4 % (0.0-0.4); LYMPHOCYTES ABSOLUTE AUTO 0.91 K/uL (1.00-4.80); LYMPHOCYTES PERCENT AUTO 6.4 % (24.0-44.0); MEAN CORPUSCULAR HEMOGLOBIN 31.2 pg (28.0-32.0); MEAN CORPUSCULAR VOLUME 89.1 fL (83.0-99.0); MEAN PLATELET VOLUME 11.1 fL (9.4-12.3); MONOCYTES ABSOLUTE AUTO 1.35 K/uL (0.00-0.80); MONOCYTES PERCENT AUTO 9.5 % (0.0-8.0); NEUTROPHILS ABSOLUTE AUTO 11.86 K/uL (1.80-7.70); PLATELET COUNT,PLT 252 K/uL (150-400); RED BLOOD CELL COUNT 3.21 M/uL (4.10-5.30); WHITE BLOOD CELL COUNT,WBC 14.28 K/uL (3.9-11.3)
[2024-04-14] MEDS: Ondansetron 4 MG/2 ML SDV IVPUSH ONE (16:38)
[2024-04-14 16:54] LABS: A/G RATIO 0.9 (0.9-1.6); ALANINE AMINOTRANSFERASE,ALT 15 IU/L (14-63); ALBUMIN 3.5 g/dL (3.4-5.0); ALKALINE PHOSPHATASE 135 U/L (46-116); ASPARTATE AMNIOTRANSFERASE,AST 9 IU/L (15-37); BILIRUBIN TOTAL 0.6 mg/dL (0.2-1.0); BLOOD UREA NITROGEN,BUN 32 mg/dL (7.0-18.0); C-REACTIVE PROTEIN 3.55 mg/dL (<0.3); CALCIUM 9.7 mg/dL (8.5-10.1); CARBON DIOXIDE,CO2 29.1 mmol/L (21.0-32.0); CHLORIDE,CL 94 mmol/L (98-107); CREATININE 7.3 mg/dL (0.6-1.0); GLUCOSE RANDOM 180 mg/dL (74-106); LIPASE 26 U/L (16-77); MAGNESIUM 2.1 mg/dL (1.8-2.4); POTASSIUM,K 3.4 mmol/L (3.5-5.1); PROTEIN TOTAL,TP 7.6 g/dL (6.4-8.2); SODIUM,NA 138 mmol/L (136-145)
[2024-04-14 17:00] LABS: ESTIMATED GFR 5 mL/min (>60)
[2024-04-14 18:52] LABS: APPEARANCE,URINE CLEAR; BILIRUBIN,URINE NEGATIVE (NEGATIVE); COLOR,URINE YELLOW; GLUCOSE,URINE 250 mg/dL (NEGATIVE); KETONES,URINE NEGATIVE (NEGATIVE); LEUKOCYTE ESTERASE,URINE NEGATIVE (NEGATIVE); NITRITE,URINE NEGATIVE (NEGATIVE); OCCULT BLOOD,URINE TRACE-INTACT (NEGATIVE); PROTEIN,URINE >=300 mg/dL (NEGATIVE); UROBILINOGEN,URINE 0.2 EU/dL (<2.0)
[2024-04-14] MEDS: Zinc Oxide 13% Crm 56 GM Tube TOP ONE (18:55)
[2024-04-14 19:08] LABS: BACTERIA,URINE FEW (NEGATIVE); EPITHELIAL CELLS,URINE OCCASIONAL (NONE-FEW); WBC,URINE 0-5 (0-5/HPF)
== END 2024-04-14 20:17 | disposition home or self-care (01) ==
LOC: MW.ED 15:49
DX: A08.4 Viral intestinal infection, unspecified (principal); I12.0 Hypertensive chronic kidney disease with stage 5 chronic kidney disease or end stage renal disease; N18.6 End stage renal disease; M19.90 Unspecified osteoarthritis, unspecified site; E11.22 Type 2 diabetes mellitus with diabetic chronic kidney disease; Z90.49 Acquired absence of other specified parts of digestive tract; Z87.19 Personal history of other diseases of the digestive system; Z88.8 Allergy status to other drugs, medicaments and biological substances; Z91.040 Latex allergy status; Z79.4 Long term (current) use of insulin; Z79.82 Long term (current) use of aspirin; Z79.899 Other long term (current) drug therapy; Z99.2 Dependence on renal dialysis
CPT/HCPCS: 36415; 74176; 80053; 81001; 83605; 83690; 83735; 85025; 85652; 86140; 87040; 96374; 99284; J2405; 99283

== ENCOUNTER 2024-04-19 14:37 | Emergency (ER) | payer OTHER ==
[2024-04-19 16:36] LABS: BASOPHILS ABSOLUTE AUTO 0.07 K/uL (0.00-0.20); BASOPHILS PERCENT AUTO 0.7 % (0.0-1.0); EOSINOPHILS ABSOLUTE AUTO 0.13 K/uL (0.00-0.45); EOSINOPHILS PERCENT AUTO 1.2 % (0.0-6.0); HEMATOCRIT 26.4 % (37.0-47.0); HEMOGLOBIN 8.7 g/dL (12.0-16.0); IMMATURE GRAN ABSOLUTE AUTO 0.05 K/uL (0.00-0.05); IMMATURE GRAN PERCENT AUTO 0.5 % (0.0-0.4); LYMPHOCYTES ABSOLUTE AUTO 0.97 K/uL (1.00-4.80); LYMPHOCYTES PERCENT AUTO 9.1 % (24.0-44.0); MEAN CORPUSCULAR HEMOGLOBIN 30.3 pg (28.0-32.0); MEAN PLATELET VOLUME 10.3 fL (9.4-12.3); MONOCYTES ABSOLUTE AUTO 0.71 K/uL (0.00-0.80); MONOCYTES PERCENT AUTO 6.7 % (0.0-8.0); NEUTROPHILS ABSOLUTE AUTO 8.71 K/uL (1.80-7.70); NEUTROPHILS PERCENT AUTO 81.8 % (41.0-71.0); PLATELET COUNT,PLT 236 K/uL (150-400); RED BLOOD CELL COUNT 2.87 M/uL (4.10-5.30); WHITE BLOOD CELL COUNT,WBC 10.64 K/uL (3.9-11.3)
[2024-04-19 17:02] LABS: A/G RATIO 0.8 (0.9-1.6); BILIRUBIN TOTAL 0.4 mg/dL (0.2-1.0); CALCIUM 9.7 mg/dL (8.5-10.1); CREATININE 13.8 mg/dL (0.6-1.0); EST CRCL DRUG DOSING (CG) 2.91 mL/min; POTASSIUM,K 4.7 mmol/L (3.5-5.1); PROTEIN TOTAL,TP 6.8 g/dL (6.4-8.2)
== END 2024-04-19 17:36 | disposition home or self-care (01) ==
LOC: MW.ED 14:37
DX: R19.7 Diarrhea, unspecified (principal); R63.8 Other symptoms and signs concerning food and fluid intake; I10 Essential (primary) hypertension; E78.00 Pure hypercholesterolemia, unspecified; E11.9 Type 2 diabetes mellitus without complications; Z75.8 Other problems related to medical facilities and other health care; Z91.040 Latex allergy status; Z88.8 Allergy status to other drugs, medicaments and biological substances; Z88.1 Allergy status to other antibiotic agents; Z79.82 Long term (current) use of aspirin; Z79.899 Other long term (current) drug therapy; Z79.4 Long term (current) use of insulin
CPT/HCPCS: 36415; 80053; 85025; 99284

== ENCOUNTER 2024-06-14 09:40 | Emergency (ER) | payer MEDICARE, OTHER ==
[2024-06-14] MEDS ORDERED: Sodium Chloride 0.9% 10 ML Syringe FLUSH PRN (09:47)
[2024-06-14] MEDS ORDERED: Sodium Chloride 0.9% 2.5 ML Syringe FLUSH PRN (09:47)
[2024-06-14 10:04] LABS: BASOPHILS ABSOLUTE AUTO 0.07 K/uL (0.00-0.20); BASOPHILS PERCENT AUTO 0.5 % (0.0-1.0); EOSINOPHILS ABSOLUTE AUTO 0.06 K/uL (0.00-0.45); EOSINOPHILS PERCENT AUTO 0.4 % (0.0-6.0); HEMATOCRIT 35.4 % (37.0-47.0); HEMOGLOBIN 11.2 g/dL (12.0-16.0); IMMATURE GRAN ABSOLUTE AUTO 0.05 K/uL (0.00-0.05); IMMATURE GRAN PERCENT AUTO 0.4 % (0.0-0.4); LYMPHOCYTES ABSOLUTE AUTO 0.52 K/uL (1.00-4.80); LYMPHOCYTES PERCENT AUTO 3.9 % (24.0-44.0); MEAN CORPUSCULAR HEMOGLOBIN 29.1 pg (28.0-32.0); MEAN CORPUSCULAR HGB CONC 31.6 g/dL (32.0-36.0); MEAN CORPUSCULAR VOLUME 91.9 fL (83.0-99.0); MONOCYTES ABSOLUTE AUTO 0.66 K/uL (0.00-0.80); MONOCYTES PERCENT AUTO 4.9 % (0.0-8.0); NEUTROPHILS ABSOLUTE AUTO 12.02 K/uL (1.80-7.70); NEUTROPHILS PERCENT AUTO 89.9 % (41.0-71.0); PLATELET COUNT,PLT 258 K/uL (150-400); RED BLOOD CELL COUNT 3.85 M/uL (4.10-5.30); WHITE BLOOD CELL COUNT,WBC 13.38 K/uL (3.9-11.3)
[2024-06-14 10:21] LABS: INR 1.07 (0.86-1.11)
[2024-06-14] MEDS: Aspirin 81 MG Tab.Chew PO ONE (10:23)
[2024-06-14 10:35] LABS: A/G RATIO 0.7 (0.9-1.6); ALBUMIN 3.2 g/dL (3.4-5.0); BILIRUBIN TOTAL 0.5 mg/dL (0.2-1.0); CALCIUM 5.5 mg/dL (8.5-10.1); CARBON DIOXIDE,CO2 31.3 mmol/L (21.0-32.0); CREATININE 6.1 mg/dL (0.6-1.0); EST CRCL DRUG DOSING (CG) 6.3 mL/min; POTASSIUM,K 3.9 mmol/L (3.5-5.1); PROTEIN TOTAL,TP 7.6 g/dL (6.4-8.2)
[2024-06-14 10:42] LABS: TSH ULTRASENSITIVE 0.05 uIU/mL (0.36-3.74)
[2024-06-14 11:08] LABS: T4 FREE 1.33 ng/dL (0.76-1.46)
[2024-06-14] MEDS: Nitroglycerin 0.4 MG Tab.SL SL PRN (13:19)
[2024-06-14] MEDS: Alum Hydrox/Mag Hydrox/Simeth 15 ML, Lidocaine 2% 5 ML PO ONE (13:52)
== END 2024-06-14 18:24 | disposition home or self-care (01) ==
LOC: MW.ED 09:40
DX: R07.2 Precordial pain (principal); I10 Essential (primary) hypertension; E78.00 Pure hypercholesterolemia, unspecified; E11.9 Type 2 diabetes mellitus without complications; Z79.82 Long term (current) use of aspirin; Z79.899 Other long term (current) drug therapy; Z88.8 Allergy status to other drugs, medicaments and biological substances; Z91.040 Latex allergy status; Z75.8 Other problems related to medical facilities and other health care; Z79.4 Long term (current) use of insulin; Z99.2 Dependence on renal dialysis
CPT/HCPCS: 36415; 71045; 80053; 82947; 83690; 83735; 84439; 84443; 84484; 85025; 85610; 85730; 87428; 99285; A9270; 93010

== ENCOUNTER 2024-11-13 10:54 | Emergency (ER) | payer MEDICARE, OTHER ==
[2024-11-13] MEDS ORDERED: Sodium Chloride 0.9% 10 ML Syringe FLUSH PRN (11:41)
[2024-11-13] MEDS ORDERED: Sodium Chloride 0.9% 2.5 ML Syringe FLUSH PRN (11:41)
[2024-11-13 12:08] LABS: BASOPHILS ABSOLUTE AUTO 0.02 K/uL (0.00-0.20); BASOPHILS PERCENT AUTO 0.2 % (0.0-1.0); EOSINOPHILS ABSOLUTE AUTO 0.08 K/uL (0.00-0.45); EOSINOPHILS PERCENT AUTO 0.8 % (0.0-6.0); IMMATURE GRAN ABSOLUTE AUTO 0.03 K/uL (0.00-0.05); IMMATURE GRAN PERCENT AUTO 0.3 % (0.0-0.4); LYMPHOCYTES ABSOLUTE AUTO 0.95 K/uL (1.00-4.80); LYMPHOCYTES PERCENT AUTO 10.1 % (24.0-44.0); MEAN PLATELET VOLUME 10.7 fL (9.4-12.3); MONOCYTES ABSOLUTE AUTO 0.41 K/uL (0.00-0.80); MONOCYTES PERCENT AUTO 4.3 % (0.0-8.0); NEUTROPHILS ABSOLUTE AUTO 7.96 K/uL (1.80-7.70); NEUTROPHILS PERCENT AUTO 84.3 % (41.0-71.0); NRBC ABSOLUTE 0.00 K/uL (0.00-0.02); NRBC PERCENT 0.0 /100WBC (0.0-0.2); PLATELET COUNT,PLT 194 K/uL (150-400); RED BLOOD CELL COUNT 4.37 M/uL (4.10-5.30); WHITE BLOOD CELL COUNT,WBC 9.45 K/uL (3.9-11.3)
[2024-11-13 12:19] LABS: INR 0.97 (0.86-1.11)
[2024-11-13 13:03] LABS: A/G RATIO 0.9 (0.9-1.6); ALANINE AMINOTRANSFERASE,ALT 9.0 IU/L (14-63); ASPARTATE AMNIOTRANSFERASE,AST 18.0 IU/L (15-37); BILIRUBIN TOTAL 0.4 mg/dL (0.2-1.0); BLOOD UREA NITROGEN,BUN 102.0 mg/dL (7.0-18.0); CARBON DIOXIDE,CO2 23.6 mmol/L (21.0-32.0); CHLORIDE,CL 92.0 mmol/L (98-107); CREATININE 12.0 mg/dL (0.6-1.0); EST CRCL DRUG DOSING (CG) 3.44 mL/min; GLUCOSE RANDOM 185.0 mg/dL (74-106); POTASSIUM,K 5.9 mmol/L (3.5-5.1); PRO B-TYPE NATRIUR PEPT,BNPPRO 6053.0 pg/mL (0-450); PROTEIN TOTAL,TP 8.1 g/dL (6.4-8.2); SODIUM,NA 135.0 mmol/L (136-145)
[2024-11-13 13:12] LABS: ESTIMATED GFR 3.0 mL/min (>60)
[2024-11-13] MEDS: Iopamidol 755 MG/ML 500 ML Multipack Bottle IVPUSH STA (14:00)
== END 2024-11-13 15:00 | disposition home or self-care (01) ==
LOC: MW.ED 10:54
DX: R55 Syncope and collapse (principal); I12.0 Hypertensive chronic kidney disease with stage 5 chronic kidney disease or end stage renal disease; N18.6 End stage renal disease; E11.22 Type 2 diabetes mellitus with diabetic chronic kidney disease; Z88.8 Allergy status to other drugs, medicaments and biological substances; Z91.040 Latex allergy status; Z79.4 Long term (current) use of insulin; Z79.899 Other long term (current) drug therapy; Z90.49 Acquired absence of other specified parts of digestive tract; W01.198A Fall on same level from slipping, tripping and stumbling with subsequent striking against other object, initial encounter
CPT/HCPCS: 36415; 70450; 70496; 70498; 71045; 72125; 80053; 83735; 83880; 84484; 85025; 85610; 93005; 99284; Q9967